=== PATIENT | female | born 1940 | race Caucasian/White ===

== ENCOUNTER 2021-07-22 13:56 | Emergency (ER) | payer MEDICARE, OTHER, SELFPAY ==
[2021-07-22 13:57] VITALS: BP 126/69; PULSE 78; RESP 20; TEMP 36.7; O2SAT 88; BMI 25.4
[2021-07-22 14:12] VITALS: PULSE 80; RESP 20; O2SAT 92
[2021-07-22 14:16] VITALS: O2SAT 92
--- NOTE | 2021-07-22 14:19 | EKG12_ITS ---
Test Reason : SOB Blood Pressure : / mmHG Vent. Rate : 073 BPM Atrial Rate : 073 BPM P-R Int : 130 ms QRS Dur : 076 ms QT Int : 406 ms P-R-T Axes : 067 013 047 degrees QTc Int : 447 ms Normal sinus rhythm Normal ECG Confirmed by ARIN ALEXANDER, ROMIE ([id number]), restaurant expeditor BENY COX ([id number]) on 07/23/2021 1:52:53 PM Referred By: MICHAEL Confirmed By:ROMIE HINKLE MD
[2021-07-22] MEDS: dexAMETHasone 10 MG/ML Vial IV (14:36)
[2021-07-22 14:41] LABS: Absolute Lymphocyte Count 0.47 X10^3/uL (0.83-4.51); Absolute Neutrophil Count 1.6 X10^3/uL (2.0-7.7); Hematocrit 37.6 % (37-47); Hemoglobin 11.9 g/dL (12.0-15.0); Lymphocyte # 0.47 X10^3/ul (0.83-4.51); Lymphocyte % 19.3 % (19-41); Mean Corp Hgb Conc 31.6 g/dL (32-36); Mean Corpuscular Hgb 25.5 pg (27.0-32.0); Mean Corpuscular Volume 80.5 fL (81-99); Mean Platelet Vol. 8.7 fl (6.2-12.0); Monocyte# 0.34 X10^3/uL; Monocyte% 13.9 % (0-10); NRBC Flagged by Analyzer 0 % (0-5); Neutrophil # 1.61 X10^3/uL (2.7-7.7); POSITIVE DIFFERENTIAL YES; Platelet Count 234 K/mm3 (150-450); RBC Distribution Width CV 16.5 % (11.6-14.6); RBC Distribution Width SD 48.2 fl (35.1-43.9); Red Blood Count 4.67 M/mm3 (4.2-5.4); White Blood Count 2.4 K/mm3 (4.4-11.0)
[2021-07-22 14:45] LABS: Differential Indicated SCAN CRITERIA MET
--- NOTE | 2021-07-22 14:45 | RAD_ITS ---
STUDY: X-RAY CHEST REASON FOR EXAM: Female, 81 years old. Cough TECHNIQUE: Single AP portable view of the chest. COMPARISON: None. FINDINGS: EKG electrodes are seen. Patchy infiltrates are seen in both lower lobes slightly more prominent on the left side. There is no demonstrated pleural abnormality. Normal size heart. Normal mediastinum and layla. Normal visualized pulmonary arteries. Normal visualized aortic arch and descending thoracic aorta. There are diffuse degenerative changes of the visualized thoracic spine. Normal visualized ribs, clavicles, and shoulders. Hiatal hernia. RAD/Chest 1 View (Portable) IMPRESSION: Patchy bibasilar pulmonary infiltrates slightly more prominent on the left side. Electronically Signed: Cliff Haile MD at 14:58 EDT , Service support ,
[2021-07-22 14:59] LABS: Anion Gap 9 (5-15); BUN 20 mg/dL (7-18); BUN/Creat Ratio 16.4 RATIO (10-20); Calcium,Total 8.9 mg/dL (8.5-10.1); Chloride 97 mmol/L (98-107); Creatinine, Serum 1.22 mg/dL (0.55-1.02); EST Glomerular Filtration Rate 45 mL/min (>60); Est Glom Filt Rate - Afr Amer 54 mL/min (>60); Estimated Creatinine Clearance 25.54 ml/min; Glucose 124 mg/dL (74-106); Magnesium 2.4 mg/dL (1.6-2.6); Potassium 4.2 mmol/L (3.5-5.1); Sodium Level 133 mmol/L (136-145); Troponin-I HS 6 pg/mL (3.0-54.0)
[2021-07-22 15:12] LABS: Differential Comment SCANNED
--- NOTE | 2021-07-22 15:29 | EX.ED.DYSGE1 ---
HPI History of Present Illness Chief Complaint: Shortness of Breath Narrative Narrative: Patient is 81-year-old female who lives in [facility] approximately 3 hours away. She came down to this area where her daughters live on her birthday which was [birth year] and they went to a public attraction. The next day she began with nasal congestion and cough and tested positive for Covid. Patient states that she has been doing overall well at home but family has been checking her pulse ox and they noticed it was dropping down into the high 80s and with this sent her in for evaluation. Patient denies any history of lung disorder or smoking history. She states she overall feels okay but with family's concern for her oxygen status she presents for evaluation [facility] Medical History Hypothyroidism Psoriasis Home Medications albuterol sulfate [Ventolin HFA] 1 - 2 puff INHALATION Q4H PRN PRN #1 device 07/22/21 [Rx Last Taken Unknown] dexamethasone [Decadron] 6 mg PO DAILY #10 tab 07/22/21 [Rx Last Taken Unknown] Allergy/AdvReac Type Severity Reaction Status Date / Time propoxyphene [From Darvon] AdvReac Nausea Verified 07/22/21 14:01 Social History Smoking Status: Never smoker ROS ROS ED Constitutional Constitutional ED: Denies chills or fever(s) ENT ENT ED: Denies sore throat Cardiovascular Cardiovascular: Denies chest pain Respiratory/Chest Respiratory/Chest: Reports cough and dyspnea Gastrointestinal Gastrointestinal: Denies abdominal pain, diarrhea, nausea or vomiting Genitourinary Genitourinary ED: Denies dysuria Musculoskeletal Musculoskeletal: Denies myalgias Integumentary Denies rash Neurologic Neurologic: Denies headache(s) Hematologic/Lymphatic Hematologic/Lymphatic: Denies easy bleeding or easy bruising EXAM Physical Exam Const Vital Signs: 07/22/21 13:57 07/22/21 14:12 07/22/21 14:16 Temperature 98.1 F Temperature Source Temporal Pulse Rate 78 80 Respiratory Rate 20 H 20 H Respiratory Effort Normal Non-Labored Respiratory Depth Normal Respiratory Pattern Normal Blood Pressure 126/69 H Blood Pressure Mean 88 Pulse Ox 88 92 Oxygen Delivery Method Room Air Room Air Room Air 07/22/21 16:02 Temperature Temperature Source Pulse Rate 73 Respiratory Rate 19 H Respiratory Effort Respiratory Depth Respiratory Pattern Blood Pressure 137/60 H Blood Pressure Mean 85 Pulse Ox 90 Oxygen Delivery Method Room Air Positive well nourished and well developed General Appearance ED: well developed HEENT Reports moist mucous membranes HEENT Narrative: No tongue or lip swelling no oral lesions no airway edema or compromise Eyes PERRL and EOMs intact bilaterally Neck supple Neck Narrative: Positive anterior cervical lymphadenopathy noted Resp normal respiratory effort Resp Narrative: No nasal flaring retractions tachypnea or accessory muscle use. Patient's breath sounds are slight diminished throughout with faint expiratory wheeze and rhonchi in the bilateral bases Cardio regular rate and regular rhythm GI normal to inspection, nondistended, normoactive bowel sounds, non-tender and non-distended Auscultation: normoactive bowel sounds Palpation: soft Extremity normal to inspection Extremity Narrative: No asymmetric edema no pitting edema negative Homans' sign bilaterally Neuro oriented x3 and CN's II-XII intact bilaterally Sensorium / Orientation: alert Psych mental status grossly normal Skin no rashes or lesions noted MDM MDM MDM Narrative Medical decision making narrative: Patient presented to the ER in no acute respiratory distress and was satting 90 to 92% on room air. She is approximately 9 days into her Covid diagnosis and there is concern for developing infection/pneumonia from this because of her reported low pulse ox at home. Basic blood work was obtained which does show leukopenia consistent with the Covid but otherwise no clinically significant findings. Chest x-ray did reveal infiltrates consistent with Covid pneumonia. The patient was ambulated and her pulse ox went down to 83% on room air. Therefore at this time she will qualify for supplemental oxygen. However as she does not have signs of septicemia from the Covid or signs of heart damage I do not feel there is need for placement. Patient will be prescribed oxygen as well as Decadron and albuterol inhaler for home. I do not feel there is need for antibiotics as the pneumonia is viral in nature. We discussed monoclonal antibody treatment but patient is now on supplemental oxygen which disqualifies her from this. Lab Data Attestation: I reviewed the patient's lab results. Labs: Laboratory Results - last 24 hr 07/22/21 07/22/21 07/22/21 14:28 14:28 14:28 WBC 2.4 L RBC 4.67 Hgb 11.9 L Hct 37.6 MCV 80.5 L MCH 25.5 L MCHC 31.6 L RDW Std Deviation 48.2 H RDW Coeff of Cecille 16.5 H Plt Count 234 MPV 8.7 Immature Gran % (Auto) 0.800 Neut % (Auto) 66.0 Lymph % (Auto) 19.3 Wells % (Auto) 13.9 H Eos % (Auto) 0.0 Baso % (Auto) 0.0 Absolute Neuts (auto) 1.6 L Absolute Lymphs (auto) 0.47 L Nucleated RBC % 0 Differential Comment SCANNED Diff Path Review May foll Sodium 133 L Potassium 4.2 Chloride 97 L Carbon Dioxide 27.0 Anion Gap 9 BUN 20 H Creatinine 1.22 H Estim Creat Clear Calc 25.54 Est GFR (MDRD) Af Amer 54 L Est GFR (MDRD) Non-Af 45 L BUN/Creatinine Ratio 16.4 Glucose 124 H Calcium 8.9 Magnesium 2.4 Troponin I High Sens 6 B-Natriuretic Peptide 11.0 Radiography Diagnostic Testing: Clinical Impression(s) from Imaging Studies Chest X-Ray 07/22/21 14:45 IMPRESSION: Patchy bibasilar pulmonary infiltrates slightly more prominent on the left side. Electronically Signed: Cliff Haile MD at 14:58 EDT , Service support , Discharge Plan Triage Chief Complaint: Shortness of Breath ED Provider: Ever Gama Dx/Rx/DC Orders Clinical Impression: Pneumonia due to 2019 novel coronavirus Instructions: Coronavirus Disease 2019 (COVID-19): Caring for Yourself or Others Prescriptions: New dexamethasone [Decadron] 6 mg tablet 6 mg PO DAILY Qty: 10 RF: 0 albuterol sulfate [Ventolin HFA] 90 mcg/actuation HFA aerosol inhaler 1 - 2 puff inhalation Q4H PRN PRN (Reason: Wheezing) Qty: 1 RF: 0 Primary Care Provider: Care Physician,No Primary Referrals: Reyes Baker DO [STAFF PHYSICIAN] - 3-5 Days if not improving Care Physician,No Primary [Primary Care Provider] - Disposition Disposition: Home, Self Care
[2021-07-22 15:55] VITALS: O2SAT 88
[2021-07-22 16:02] VITALS: BP 137/60; PULSE 73; RESP 19; O2SAT 90
[2021-07-22 16:44] VITALS: BP 137/60; PULSE 71; RESP 18; O2SAT 97
--- NOTE | 2021-07-22 16:57 | CM.ED ---
MICHAEL Note Referral Source: cistern room operator Reason: Home Oxygen MICHAEL was advised by RN that patient needs home oxygen. MICHAEL called Tricia at [facility]. She advised to tell the patient to call [facility] when she gets home. BUSHING AND BROACH OPERATOR confirmed patient does not have a bipap or cpap. MICHAEL faxed referral packet to [facility]. MICHAEL sent email to [facility] [facility] for follow up. Plan: Home with home oxygen
[2021-07-23 13:20] LABS: Pathologist Review Reviewed
--- NOTE | 2021-07-23 15:08 | CASEMGMT ---
EMILY JESUS ED Home O2 follow-up: This EMILY JESUS contacted pt on her daughter's phone ([phone]). Pt's daughter Arlette states pt has been doing very well since discharge and denies any concerns. States pt received her prescriptions, has been wearing the O2 at 2l/min, and reports pt's PO to have been 94-96%. Pt's daughter reports that her and herself also have COVID-19 and have received monoclonal antibodies. Pt's daughter Arlette denied further questions or concerns regarding Eliz's health status. David Kimball RN CM
== END 2021-07-22 17:23 | disposition home or self-care (01) ==
PROVIDERS: Emergency Provider Emergency Medicine
DX: U07.1 COVID-19 (principal); J12.82 Pneumonia due to coronavirus disease 2019
CPT/HCPCS: 71045; 80048; 83735; 83880; 84484; 85025; 93005; 96374; 99282; J7040; A4216

== ENCOUNTER 2021-07-25 22:47 | Inpatient (IN) | payer MEDICARE, OTHER, SELFPAY ==
[2021-07-25 22:48] VITALS: BP 146/78; PULSE 75; RESP 22; TEMP 36.3; O2SAT 97; BMI 25.4
[2021-07-25 22:50] VITALS: BP 146/78; PULSE 75; RESP 22; TEMP 36.3; O2SAT 97
--- NOTE | 2021-07-25 23:49 | EDS_ITS ---
HPI History of Present Illness Chief Complaint: Shortness of Breath Informant: patient Onset/Context/Timing Onset: Days (11) Context: gradual Timing: Continuous Quality: Positive for Dyspnea on exertion Worsened by: Exertion Relieved by: Oxygen and Albuterol Associated Symptoms cough and clear sputum; Negative for rhinorrhea, ear pain, fever, sore throat or chills Chest Pain: Positive for None Narrative Narrative: Patient presents with shortness of breath that has been getting worse over the past 11 days. Patient was diagnosed with COVID-19 approximately 10 days ago. Patient states her breathing is worse with any exertion. Patient was seen here 3 days ago and was diagnosed with COVID-19 pneumonia. Patient was given prescriptions for Decadron and albuterol. Patient was placed on home oxygen. Patient states she has been having to increase her home oxygen. Patient admits to a cough with some clear sputum. Patient denies any fevers or chills. [facility] Medical History (Updated 07/26/21 @ 02:[address] London Diaz DO) Hypothyroidism Psoriasis Home Medications albuterol sulfate [Ventolin HFA] 1 - 2 puff INHALATION Q4H PRN PRN #1 device 07/22/21 [Rx Last Taken Unknown] azithromycin [Zithromax Z-Marito] See Rx Instructions .ROUTE .COMPLEX #6 tab 07/22/21 [Rx Last Taken Unknown] dexamethasone [Decadron] 6 mg PO DAILY #10 tab 07/22/21 [Rx Last Taken Unknown] paroxetine HCl 40 mg PO DAILY 07/26/21 [History Last Taken Unknown] Allergy/AdvReac Type Severity Reaction Status Date / Time propoxyphene [From Darvon] AdvReac Nausea Verified 07/22/21 14:01 Surgical History (Updated 07/25/21 @ 23:[address] London Diaz DO) Hx of exploratory laparotomy Social History Smoking Status: Never smoker ROS ROS ED Constitutional Constitutional ED: Denies chills or fever(s) Eyes Eyes: Denies blurry vision or change in vision ENT ENT ED: Denies rhinorrhea or sore throat Cardiovascular Cardiovascular: Denies chest pain or palpitations Respiratory/Chest Respiratory/Chest: Reports cough and dyspnea Gastrointestinal Gastrointestinal: Reports nausea; Denies vomiting Genitourinary Genitourinary ED: Denies dysuria or hematuria Musculoskeletal Musculoskeletal: Denies back pain or neck pain Integumentary Denies abscess or rash Neurologic Neurologic: Denies headache(s) or weakness Allergic/Immunologic Allergic/Immunologic ED: Denies mouth swelling or urticaria EXAM Physical Exam Const Vital Signs: 07/25/21 22:48 07/25/21 22:50 07/26/21 00:00 Temperature 97.3 F L 97.3 F L 97.3 F L Temperature Source Temporal Temporal Temporal Pulse Rate 75 75 68 Respiratory Rate 22 H 22 H 17 Respiratory Effort Normal Respiratory Depth Normal Respiratory Pattern Normal Blood Pressure 146/78 H 146/78 H 146/78 H Blood Pressure Mean 100 100 100 Pulse Ox 97 97 95 Oxygen Delivery Method Nasal Cannula Nasal Cannula Nasal Cannula Oxygen Flow Rate (L/min) 6 4 Positive well nourished and well developed General Appearance ED: well developed HEENT Reports moist mucous membranes Neck supple and no JVD Resp normal respiratory effort Auscultation: rhonchi throughout Cardio regular rate, regular rhythm and no murmurs GI normal to inspection, nondistended, normoactive bowel sounds and non-tender Palpation: soft Extremity normal to inspection General Extremety ED: Negative for edema or tenderness General Extremity: Negative for edema Neuro oriented x3, CN's II-XII intact bilaterally and no sensory deficits noted Sensorium / Orientation: alert Motor Exam: strength 5/5 throughout Psych mental status grossly normal Skin no rashes or lesions noted MDM MDM MDM Narrative Medical decision making narrative: Portable chest x-ray was obtained. There is 1 view. On my interpretation, there are bilateral infiltrates consistent with COVID-19 pneumonia. This was also interpreted by the radiologist and he agrees. CBC shows a normal white blood cell count of 4.9. Hemoglobin was 11.3 hematocrit was 36.4. Platelets were normal. Comprehensive metabolic profile was within normal limits. Anion gap was normal. Lactate was elevated at 4.2. Patient was offered Tylenol but declined. Patient was given a dose of Decadron here. Case was discussed with the hospitalist. He will admit the patient. Patient understood and was agreeable with the plan. All questions were answered. Lab Data Attestation: I reviewed the patient's lab results. Labs: Laboratory Results - last 24 hr 07/25/21 07/25/21 07/25/21 23:05 23:05 23:05 WBC 4.9 RBC 4.49 Hgb 11.3 L Hct 36.4 L MCV 81.1 MCH 25.2 L MCHC 31.0 L RDW Std Deviation 48.8 H RDW Coeff of Cecille 16.4 H Plt Count 394 MPV 9.0 Immature Gran % (Auto) 1.800 H Neut % (Auto) 81.0 H Lymph % (Auto) 7.6 L [place] % (Auto) 9.4 Eos % (Auto) 0.0 Baso % (Auto) 0.2 Absolute Neuts (auto) 4.0 Absolute Lymphs (auto) 0.37 L Nucleated RBC % 0 Sodium 133 L Potassium 4.5 Chloride 97 L Carbon Dioxide 26.0 Anion Gap 10 BUN 19 H Creatinine 0.76 Estim Creat Clear Calc 31.15 Est GFR (MDRD) Af Amer 94 Est GFR (MDRD) Non-Af 78 BUN/Creatinine Ratio 25.0 H Glucose 109 H Lactic Acid 4.2 H* Calcium 8.9 Total Bilirubin 0.50 AST 37 ALT 23 Alkaline Phosphatase 103 Total Protein 8.3 H Albumin 2.7 L Globulin 5.6 H Albumin/Globulin Ratio 0.5 L Radiography Chest X-Ray - ED: 1 View, Read by ED Physician, Read by Radiologist, Right Infiltrate and Left Infiltrate Diagnostic Testing: Clinical Impression(s) from Imaging Studies Chest X-Ray 07/26/21 00:00 IMPRESSION: Increased bilateral patchy airspace opacities concerning for pneumonia, compatible with atypical viral pneumonia in the appropriate setting. at 0034 Reported and signed by: Uvaldo Cotto MD Electronically Signed: Uvaldo Cotto MD at 0:33 EDT Tel , Service support , Treatment and Re-Evaluation Vital Sign Attestation:: Vital signs were reviewed prior to admission. They are stable. Discharge Plan Dx/Rx/DC Orders Clinical Impression: Pneumonia due to 2019 novel coronavirus, Hypoxia Disposition Disposition: [facility]
[2021-07-26] VITALS (25 sets, daily range): BP systolic 98–152; BP diastolic 48–84; PULSE 66–94; RESP 15–23; TEMP 36.2–37.4; O2SAT 83–98; BMI 28.0
--- NOTE | 2021-07-26 | RAD_ITS ---
HISTORY: cough EXAMINATION/TECHNIQUE: XR Chest 1 View: COMPARISON: July 22, 2021 FINDINGS: LINES/DEVICES: None. LUNGS: Increased bilateral patchy predominantly peripheral mid lower lung airspace opacities. Unremarkable interstitium. No effusion. No pneumothorax. MEDIASTINUM: No cardiomegaly. MUSCULOSKELETAL: No acute osseous finding. RAD/Chest 1 View (Portable) IMPRESSION: Increased bilateral patchy airspace opacities concerning for pneumonia, compatible with atypical viral pneumonia in the appropriate setting. at 0034 Reported and signed by: Uvaldo Cotto MD Electronically Signed: Uvaldo Cotto MD at 0:33 EDT Tel , Service support ,
[2021-07-26 00:12] LABS: Absolute Lymphocyte Count 0.37 X10^3/uL (0.83-4.51); Basophil# 0.01 X10^3/uL; Basophil% 0.2 % (0-1); Hematocrit 36.4 % (37-47); Hemoglobin 11.3 g/dL (12.0-15.0); Lymphocyte # 0.37 X10^3/ul (0.83-4.51); Lymphocyte % 7.6 % (19-41); Mean Corpuscular Hgb 25.2 pg (27.0-32.0); Mean Corpuscular Volume 81.1 fL (81-99); Monocyte# 0.46 X10^3/uL; Monocyte% 9.4 % (0-10); NRBC Flagged by Analyzer 0 % (0-5); Neutrophil # 3.95 X10^3/uL (2.7-7.7); POSITIVE DIFFERENTIAL YES; Platelet Count 394 K/mm3 (150-450); RBC Distribution Width CV 16.4 % (11.6-14.6); RBC Distribution Width SD 48.8 fl (35.1-43.9); Red Blood Count 4.49 M/mm3 (4.2-5.4); White Blood Count 4.9 K/mm3 (4.4-11.0)
[2021-07-26 00:19] LABS: ALB/GLOB Ratio 0.5 RATIO (0.9-2.4); AST(SGOT) 37 U/L (15-37); Alanine Aminotransfer ALT/SGPT 23 U/L (13-56); Albumin, Serum 2.7 g/dL (3.2-5.0); Alkaline Phosphatase 103 U/L (45-117); Anion Gap 10 (5-15); BUN 19 mg/dL (7-18); Calcium,Total 8.9 mg/dL (8.5-10.1); Chloride 97 mmol/L (98-107); Creatinine, Serum 0.76 mg/dL (0.55-1.02); EST Glomerular Filtration Rate 78 mL/min (>60); Est Glom Filt Rate - Afr Amer 94 mL/min (>60); Estimated Creatinine Clearance 31.15 ml/min; Globulin 5.6 g/dL (2.2-4.2); Glucose 109 mg/dL (74-106); Potassium 4.5 mmol/L (3.5-5.1); Protein, Total 8.3 g/dL (6.4-8.2); Sodium Level 133 mmol/L (136-145)
[2021-07-26] MEDS: dexAMETHasone 10 MG/ML Vial 6 MG IV (00:24)
[2021-07-26 00:25] LABS: Differential Indicated SCAN CRITERIA MET
[2021-07-26 00:37] LABS: Lactic Acid 4.2 mmol/L (0.4-1.9)
--- NOTE | 2021-07-26 02:19 | PCM.HP.STD ---
HPI - General General Date of Admission: 07/26/21 Date of Service: 07/26/21 Chief Complaint: Covid-like symptoms HPI Narrative ELFEGO AUSTIN, is a 81 F with a significant history of hypothyroidism and psoriasis who presents to emergency department with 11-day history of progressively worsening Covid-like symptoms. Patient tested positive for Covid 10 days ago. On 07/22/2021 she was at a hospital and was prescribed albuterol; Decadron and Z-Marito. She report that she continued to have dyspnea on exertion and hypoxia requiring her home oxygen supplementation to be increased. Further, patient reports a dry cough occasionally productive of clear sputum. She denies dysgeusia or anosmia. She reports loose bowel movements when she coughs. [facility] Medical History Hypothyroidism Psoriasis Home Medications albuterol sulfate [Ventolin HFA] 1 - 2 puff INHALATION Q4H PRN PRN #1 device 07/22/21 [Rx Last Taken Unknown] azithromycin [Zithromax Z-Marito] See Rx Instructions .ROUTE .COMPLEX #6 tab 07/22/21 [Rx Last Taken Unknown] dexamethasone [Decadron] 6 mg PO DAILY #10 tab 07/22/21 [Rx Last Taken Unknown] paroxetine HCl 40 mg PO DAILY 07/26/21 [History Last Taken Unknown] Allergy/AdvReac Type Severity Reaction Status Date / Time propoxyphene [From Darvon] AdvReac Nausea Verified 07/22/21 14:01 Family History (Updated 07/26/21 @ 03:[address] Enrico Persaud MD) Other Cancer Surgical History Hx of exploratory laparotomy Social History Smoking Status: Never smoker ROS ROS Narrative Constitutional: Denies fever, chills, and change in weight Eyes: Denies blurry vision, change in eye color, change in vision, discharge from eye(s), double vision, erythema, eye pain, loss of vision or other HEENT: Denies abnormal hearing, dysphagia, ear pain, epistaxis, headache(s), hearing loss, nasal congestion, nasal discharge, post nasal drip, sinus pressure, sore throat or other Cardiovascular: Denies chest pain or palpitations. Respiratory/Chest: Reports a productive cough occasionally productive for clear sputum. Reports dyspnea on exertion. Gastrointestinal: Denies abdominal pain, coffee ground emesis, constipation, diarrhea, dyspepsia, hematemesis, hematochezia, loose stools, melena, nausea, vomiting or other Genitourinary: Denies burning urination, difficulty urinating, dysuria, hematuria, nocturia, urinary frequency, urinary hesitancy, urinary incontinence, urinary urgency or other Musculoskeletal: Denies arthralgias, back pain, joint pain, joint stiffness, joint swelling, myalgias, neck pain or other Neurologic: Denies abnormal gait, abnormal speech, confusion, disequilibrium, dizziness, focal weakness, headache(s), numbness, paresthesias, seizure-like activity, seizures, syncope, tingling, tremor(s) or other Psychiatric: Denies anxiety, depression, homicidal ideation, suicidal ideation or other Endocrinology: Denies change in body appearance, cold intolerance, excessive sweating, heat intolerance, polydipsia, polyuria or other Hematologic/Lymphatic: Denies anemia, easy bleeding, easy bruising, lymphadenopathy or other Integumentary: Denies rashes Allergic/Immunologic: Denies rhinitis, hives, eczema, asthma or other Vital Signs Vital Signs Vital Signs: 07/25/21 22:48 07/25/21 22:50 07/26/21 00:00 Temperature 97.3 F L 97.3 F L 97.3 F L Temperature Source Temporal Temporal Temporal Pulse Rate 75 75 68 Respiratory Rate 22 H 22 H 17 Respiratory Effort Normal Respiratory Depth Normal Respiratory Pattern Normal Blood Pressure 146/78 H 146/78 H 146/78 H Blood Pressure Mean 100 100 100 Pulse Ox 97 97 95 Oxygen Delivery Method Nasal Cannula Nasal Cannula Nasal Cannula Oxygen Flow Rate (L/min) 6 4 Weight Weight: 58.967 kg Body Mass Index (BMI) 25.4 Physical Exam Narrative Physical exam: General: Well-nourished, well-developed. Head: Normocephalic, atraumatic, no tenderness Eyes: PERRLA, EOMI ENT, no trauma, moist mucous membranes, no rhinorrhea Neck: Nontender, full range of motion, no spinal tenderness, deformities, step-off CVS: Regular rate and rhythm. S1-S2 present. No murmur, gallop or rub. Respiratory : Using accessory muscles of respiration; tachypnea; no rales; chest wall nontender. Abdomen: Soft, nontender, nondistended, normal bowel sounds, no masses : Deferred Back: Nontender, no CVA tenderness, no midline spinal tenderness, deformities, step-offs Extremities: Nontender full range of motion, no trauma Skin: Normal color, no trauma, abrasions Neuro: Alert, oriented, cranial nerves II through XII grossly intact. Psychiatry: Normal mood. Normal affect. Not depressed. Not anxious. Results Lab / Micro Data Result Diagrams: 07/25/21 23:05 07/25/21 23:05 Labs: Laboratory Results - last 24 hr 07/25/21 23:05: WBC 4.9, RBC 4.49, Hgb 11.3 L, Hct 36.4 L, MCV 81.1, MCH 25.2 L, MCHC 31.0 L, RDW Std Deviation 48.8 H, RDW Coeff of Cecille 16.4 H, Plt Count 394, MPV 9.0, Immature Gran % (Auto) 1.800 H, Neut % (Auto) 81.0 H, Lymph % (Auto) 7.6 L, [place] % (Auto) 9.4, Eos % (Auto) 0.0, Baso % (Auto) 0.2, Absolute Neuts (auto) 4.0, Absolute Lymphs (auto) 0.37 L, Nucleated RBC % 0 07/25/21 23:05: Sodium 133 L, Potassium 4.5, Chloride 97 L, Carbon Dioxide 26.0, Anion Gap 10, BUN 19 H, Creatinine 0.76, Estim Creat Clear Calc 31.15, Est GFR (MDRD) Af Amer 94, Est GFR (MDRD) Non-Af 78, BUN/Creatinine Ratio 25.0 H, Glucose 109 H, Calcium 8.9, Total Bilirubin 0.50, AST 37, ALT 23, Alkaline Phosphatase 103, Total Protein 8.3 H, Albumin 2.7 L, Globulin 5.6 H, Albumin/Globulin Ratio 0.5 L 07/25/21 23:05: Lactic Acid 4.2 H* Radiology Impression Chest X-Ray 07/26/21 00:00 IMPRESSION: Increased bilateral patchy airspace opacities concerning for pneumonia, compatible with atypical viral pneumonia in the appropriate setting. at 0034 Reported and signed by: Uvaldo Cotto MD Electronically Signed: Uvaldo Cotto MD at 0:33 EDT Tel , Service support , Assessment & Plan Assessment/Plan (1) Hypoxia: (2) Pneumonia due to 2019 novel coronavirus: PLAN: Acute hypoxemic respiratory failure secondary to SARS- COV 2 Tachypnea with use of accessory muscles of respiration. Patient required nasal cannula oxygen to maintain appropriate oxygen saturation. Patient increased her home oxygen to 5 L/min. Chest x-ray independently interpreted is consistent with Covid. I agree with radiologist interpretation. CBC is remarkable for bandemia of 1.8%. Positive coronavirus test outpatient at [facility]. Will stop Home Z-Marito. Will check procalcitonin. Decadron continue. Outside window for remdesivir. Tylenol for fever Mucinex ordered Trend CBC and BMP. Lactic acidosis with lactic acid of 4.2, likely secondary to hypoxia, trend. We'll put on therapeutic dose of Lovenox in the setting of persistent hypoxia. Unable to obtain CTA secondary to CKD stage III. Depression/anxiety Paroxetine continued. CKD stage IIIb Stable trend DVT prophylaxis: Subcutaneous Lovenox ordered. Charges/Coding Visit Charges Inpatient E&M: 46936 Init Hosp L3
[2021-07-26 03:32] LABS: Absolute Lymphocyte Count 0.39 X10^3/uL (0.83-4.51); Absolute Neutrophil Count 4.3 X10^3/uL (2.0-7.7); Basophil# 0.01 X10^3/uL; Basophil% 0.2 % (0-1); Hematocrit 34.9 % (37-47); Lymphocyte # 0.39 X10^3/ul (0.83-4.51); Lymphocyte % 7.6 % (19-41); Mean Corp Hgb Conc 31.5 g/dL (32-36); Mean Corpuscular Hgb 25.4 pg (27.0-32.0); Mean Corpuscular Volume 80.6 fL (81-99); Monocyte# 0.31 X10^3/uL; Monocyte% 6.1 % (0-10); NRBC Flagged by Analyzer 0 % (0-5); Neutrophil # 4.32 X10^3/uL (2.7-7.7); Neutrophil % 84.7 % (47-70); POSITIVE DIFFERENTIAL YES; POSITIVE MORPHOLOGY YES; Platelet Count 403 K/mm3 (150-450); RBC Distribution Width CV 16.1 % (11.6-14.6); RBC Distribution Width SD 47.4 fl (35.1-43.9); Red Blood Count 4.33 M/mm3 (4.2-5.4); White Blood Count 5.1 K/mm3 (4.4-11.0)
[2021-07-26 03:37] LABS: Differential Indicated SCAN CRITERIA MET
[2021-07-26 03:50] LABS: Anion Gap 10 (5-15); BUN 17 mg/dL (7-18); BUN/Creat Ratio 24.4 RATIO (10-20); Calcium,Total 9.3 mg/dL (8.5-10.1); Chloride 98 mmol/L (98-107); EST Glomerular Filtration Rate 86 mL/min (>60); Est Glom Filt Rate - Afr Amer 104 mL/min (>60); Estimated Creatinine Clearance 31.15 ml/min; Glucose 112 mg/dL (74-106); Potassium 4.5 mmol/L (3.5-5.1); Sodium Level 133 mmol/L (136-145)
[2021-07-26 04:00] LABS: Reflex Lactate? Y
[2021-07-26 04:01] LABS: Procalcitonin 0.04 ng/mL (0.00-0.09)
--- NOTE | 2021-07-26 04:49 | PCS.PANDOC ---
PANDEMIC DOCUMENTATION INITIATED: Date: 05/10/2021 Time: 190
[2021-07-26 05:12] LABS: Lactic Acid 2.9 mmol/L (0.4-1.9)
[2021-07-26] MEDS: Levothyroxine 75 MCG Tablet PO (06:59)
[2021-07-26] MEDS: Enoxaparin 80 MG/0.8 ML Syringe 70 MG SC (09:13)
[2021-07-26] MEDS: dexAMETHasone 2 MG TABLET 6 MG PO (09:17)
[2021-07-26] MEDS: guaiFENesin 600 MG Tablet PO ×2 (09:17→21:16)
[2021-07-26] MEDS: 0.9% Saline Lock 10 ML Syringe IV ×2 (09:17→14:27)
[2021-07-26] MEDS: Albuterol Sulfate 8 gm Inhaler (60 puffs) 2 PUFF INHALATION (12:25)
--- NOTE | 2021-07-26 13:18 | NURSING ---
Addendum entered by Feli See 07/26/21 15:01: Pt moved to ICU room 9 at 1415. Original Note: Spo2 83%, into room, pt observed laying prone in bed with NC dislodged. Repositioned NC, SpO2 up to 90-91%.
[2021-07-26] MEDS: Ipratropium/Albuterol Sulfate 3 ML AMPUL.NEB INHALATION ×2 (14:22→19:56)
[2021-07-26 14:41] LABS: Allen Test Positive; Base Excess 3 mmol/L (-2 to +2); Bicarbonate 26.6 mmol/L (22-26); Blood Gas Specimen Type ART; Comment 60L 80%; FI02 80; O2 Delivery Device HFNC; PO2 53 mmHG (75-100); SITE L Radial; SO2 89 % (95-99); Total Carbon Dioxide 28 mmol/L; pCO2 37.6 mmHg (35-45); pH 7.46 (7.35-7.45)
[2021-07-26 15:09] LABS: D-Dimer Quantitative (DVT/PE) 0.98 FEU/ug/m (0.27-0.49)
--- NOTE | 2021-07-26 15:57 | PN.HOSP_ITS ---
Subjective Subjective Patient seen and examined. At the time I saw patient early in the morning, patient was lying in the prone position and was on 7 L of oxygen. She felt her shortness of breath was not any worse and she had no active complaints. However later in the day, patient became more acutely short of breath and required up to 15 L of oxygen. She needed to be transition to airflow and even while was maxed out on airflow she was only saturating at 82 to 83%. Oxygen by nonrebreather mask was added on and she was subsequently transferred to the ICU. Objective Data Objective Data Vital Signs: Vital Signs Temp Pulse Resp BP Pulse Ox 97.7 F L 82 17 131/75 H 94 07/26/21 08:50 07/26/21 14:23 07/26/21 14:23 07/26/21 08:50 07/26/21 14:23 Oxygen Flow Rate (L/min) 60 Oxygen Delivery Method Airvo Weight: 143 lb 11.862 oz Body Mass Index (BMI) 28.0 Intake & Output: Intake and Output for Last 24 Hours 07/24/21 07/25/21 07/26/21 23:59 23:59 23:59 Intake Total 260 / 260 Balance 260 / 260 Lab / Micro Data Result Diagrams: 07/26/21 03:10 07/26/21 03:10 Labs: Laboratory Results - last 24 hr 07/25/21 23:05: WBC 4.9, RBC 4.49, Hgb 11.3 L, Hct 36.4 L, MCV 81.1, MCH 25.2 L, MCHC 31.0 L, RDW Std Deviation 48.8 H, RDW Coeff of Cecille 16.4 H, Plt Count 394, MPV 9.0, Immature Gran % (Auto) 1.800 H, Neut % (Auto) 81.0 H, Lymph % (Auto) 7.6 L, [place] % (Auto) 9.4, Eos % (Auto) 0.0, Baso % (Auto) 0.2, Absolute Neuts (auto) 4.0, Absolute Lymphs (auto) 0.37 L, Nucleated RBC % 0 07/25/21 23:05: Sodium 133 L, Potassium 4.5, Chloride 97 L, Carbon Dioxide 26.0, Anion Gap 10, BUN 19 H, Creatinine 0.76, Estim Creat Clear Calc 31.15, Est GFR (MDRD) Af Amer 94, Est GFR (MDRD) Non-Af 78, BUN/Creatinine Ratio 25.0 H, Glucose 109 H, Calcium 8.9, Total Bilirubin 0.50, AST 37, ALT 23, Alkaline Phosphatase 103, Total Protein 8.3 H, Albumin 2.7 L, Globulin 5.6 H, Albumin/G lobulin Ratio 0.5 L 07/25/21 23:05: Lactic Acid 4.2 H* 07/26/21 03:10: Procalcitonin 0.04 07/26/21 03:10: WBC 5.1, RBC 4.33, Hgb 11.0 L, Hct 34.9 L, MCV 80.6 L, MCH 25.4 L, MCHC 31.5 L, RDW Std Deviation 47.4 H, RDW Coeff of Cecille 16.1 H, Plt Count 403, MPV 9.0, Immature Gran % (Auto) 1.400 H, Neut % (Auto) 84.7 H, Lymph % (Auto) 7.6 L, [place] % (Auto) 6.1, Eos % (Auto) 0.0, Baso % (Auto) 0.2, Absolute Neuts (auto) 4.3, Absolute Lymphs (auto) 0.39 L, Nucleated RBC % 0 07/26/21 03:10: Sodium 133 L, Potassium 4.5, Chloride 98, Carbon Dioxide 25.0, Anion Gap 10, BUN 17, Creatinine 0.70, Estim Creat Clear Calc 31.15, Est GFR (MDRD) Af Amer 104, Est GFR (MDRD) Non-Af 86, BUN/Creatinine Ratio 24.4 H, Glucose 112 H, Calcium 9.3 07/26/21 04:32: Lactic Acid 2.9 H* 07/26/21 14:25: D-Dimer Quant (PE/DVT) 0.98 H* ABG Data ABG results: ABG 07/26/21 14:37 Specimen Type ART Sample Site L Radial pH 7.46 H Bicarbonate Actual 26.6 H Total CO2 28 Base Excess 3 H O2 Saturation 89 L O2 % 80 ABG pCO2 37.6 ABG pO2 53 L Juan [place] Test Positive O2 Delivery Device HFNC Clinical Comments 60L 80% Radiography Diagnostic Testing: Radiology Impression Chest X-Ray 07/26/21 00:00 IMPRESSION: Increased bilateral patchy airspace opacities concerning for pneumonia, compatible with atypical viral pneumonia in the appropriate setting. at 0034 Reported and signed by: Uvaldo Cotto MD Electronically Signed: Uvaldo Cotto MD at 0:33 EDT Tel , Service support , Physical Exam Const alert, oriented x3 and no apparent distress Exam Limitations: no limitations HEENT head/scalp atraumatic and moist oral mucous membranes Head and Scalp: normocephalic Eyes PERRL, EOMs intact bilaterally and conjunctivae normal Neck no lymphadenopathy and supple Resp Resp Narrative: diminished breath sounds bibasally, no wheezes, no crackles. On 7L of oxygen, proned. Transitioned later to Airvo + oxygen by nonrebreather mask Cardio regular rate, regular rhythm, S1 normal heart sound, S2 normal heart sound and no murmurs GI normal to inspection, nondistended, normoactive bowel sounds, soft to palpation, non-tender and non-distended Extremity normal to inspection, full ROM and no clubbing, cyanosis or edema Peripheral Pulses: Yes pulses 2+ throughout Skin no rashes or lesions noted Neuro oriented x3, CN's II-XII intact bilaterally and moves all extremities Sensorium / Orientation: awake and alert Psych affect normal Assessment & Plan Assessment/Plan (1) Hypoxia: (2) Pneumonia due to 2019 novel coronavirus: PLAN: #Acute hypoxic respiratory failure due to COVID 19 pneumonia * patient's respiratory status worsened, leading to her being maxed out on AirVo, and requiring oxygen by nasal canula in addition. * She tested positive for Covid 10 days prior to admission so she is out of the window for remdesivir * On Decadron. ID consulted to help determine if patient needs baricitinib * Pulmonology consulted in light of worsening respiratory status. Transfer patient to ICU. * Breathing treatments bronchodilators. Titrate oxygen to maintain saturation above 90%. * D-dimer 0.98. * ABG done showed pH of 7.46 with PO2 of 53 and PCO2 of 37.6. * #Hypothyroidism: On Synthroid DVT prophylaxis: Lovenox * Disposition: transferred to ICU. Charges/Coding Visit Charges Inpatient E&M: 03308 Subs Hosp L3
--- NOTE | 2021-07-26 16:08 | PCM.CONS.GEN ---
Assessment & Plan Assessment/Plan (1) Hypoxia: (2) Pneumonia due to 2019 novel coronavirus: PLAN: Sx started 07/13. Unvaccinated. Isolate for 20 days. Recommended vaccine. On dex. Reviewed EUA and risks/benefits, we agree to start baricitinib. Will follow, thank you HPI Consult Data Date of Consult: 07/26/21 HPI Narrative HPI Narrative: ELFEGO AUSTIN, is a 81 F who presented 07/25 with sx since 07/13. C/o cough, dyspnea. Unvaccinated for covid. Found to have hypoxia, went to ED 07/22, given dex. Came back with worsened, dyspnea, now admitted, moved to icu today with worsened O2. Full ROS performed and neg except as noted above. [facility] Medical History Hypothyroidism Psoriasis Home Medications albuterol sulfate [Ventolin HFA] 1 - 2 puff INHALATION Q4H PRN PRN #1 device 07/22/21 [Rx Last Taken Unknown] azithromycin [Zithromax Z-Marito] See Rx Instructions .ROUTE .COMPLEX #6 tab 07/22/21 [Rx Last Taken Unknown] dexamethasone [Decadron] 6 mg PO DAILY #10 tab 07/22/21 [Rx Last Taken Unknown] buspirone 5 mg 07/26/21 [History Last Taken Unknown] levothyroxine 75 mcg PO DAILY 07/26/21 [History Last Taken Unknown] pantoprazole 40 mg PO PRN PRN 07/26/21 [History Last Taken Unknown] paroxetine HCl 40 mg PO DAILY 07/26/21 [History Last Taken Unknown] Allergy/AdvReac Type Severity Reaction Status Date / Time propoxyphene [From Darvon] AdvReac Nausea Verified 07/22/21 14:01 Family History (Updated 07/26/21 @ 03:[address] Enrico Persaud MD) Other Cancer Surgical History Hx of exploratory laparotomy Social History Smoking Status: Never smoker Physical Exam Const alert General Appearance: cooperative Exam Limitations: no limitations HEENT normocephalic and head/scalp atraumatic Eyes PERRL and EOMs intact bilaterally Neck supple and No nodes Resp Auscultation: diminished lung sounds Cardio regular rate and regular rhythm GI normal to inspection, nondistended, normoactive bowel sounds Extremity no clubbing, cyanosis or edema Skin no rashes or lesions noted Neuro CN's II-XII intact bilaterally Lab / Micro Data Result Diagrams: 07/26/21 03:10 07/26/21 03:10 Labs: Laboratory Results - last 24 hr 07/25/21 23:05: WBC 4.9, RBC 4.49, Hgb 11.3 L, Hct 36.4 L, MCV 81.1, MCH 25.2 L, MCHC 31.0 L, RDW Std Deviation 48.8 H, RDW Coeff of Cecille 16.4 H, Plt Count 394, MPV 9.0, Immature Gran % (Auto) 1.800 H, Neut % (Auto) 81.0 H, Lymph % (Auto) 7.6 L, [place] % (Auto) 9.4, Eos % (Auto) 0.0, Baso % (Auto) 0.2, Absolute Neuts (auto) 4.0, Absolute Lymphs (auto) 0.37 L, Nucleated RBC % 0 07/25/21 23:05: Sodium 133 L, Potassium 4.5, Chloride 97 L, Carbon Dioxide 26.0, Anion Gap 10, BUN 19 H, Creatinine 0.76, Estim Creat Clear Calc 31.15, Est GFR (MDRD) Af Amer 94, Est GFR (MDRD) Non-Af 78, BUN/Creatinine Ratio 25.0 H, Glucose 109 H, Calcium 8.9, Total Bilirubin 0.50, AST 37, ALT 23, Alkaline Phosphatase 103, Total Protein 8.3 H, Albumin 2.7 L, Globulin 5.6 H, Albumin/Globulin Ratio 0.5 L 07/25/21 23:05: Lactic Acid 4.2 H* 07/26/21 03:10: Procalcitonin 0.04 07/26/21 03:10: WBC 5.1, RBC 4.33, Hgb 11.0 L, Hct 34.9 L, MCV 80.6 L, MCH 25.4 L, MCHC 31.5 L, RDW Std Deviation 47.4 H, RDW Coeff of Cecille 16.1 H, Plt Count 403, MPV 9.0, Immature Gran % (Auto) 1.400 H, Neut % (Auto) 84.7 H, Lymph % (Auto) 7.6 L, [place] % (Auto) 6.1, Eos % (Auto) 0.0, Baso % (Auto) 0.2, Absolute Neuts (auto) 4.3, Absolute Lymphs (auto) 0.39 L, Nucleated RBC % 0 07/26/21 03:10: Sodium 133 L, Potassium 4.5, Chloride 98, Carbon Dioxide 25.0, Anion Gap 10, BUN 17, Creatinine 0.70, Estim Creat Clear Calc 31.15, Est GFR (MDRD) Af Amer 104, Est GFR (MDRD) Non-Af 86, BUN/Creatinine Ratio 24.4 H, Glucose 112 H, Calcium 9.3 07/26/21 04:32: Lactic Acid 2.9 H* 07/26/21 14:25: D-Dimer Quant (PE/DVT) 0.98 H* ABG Data ABG results: ABG 07/26/21 14:37 Specimen Type ART Sample Site L Radial pH 7.46 H Bicarbonate Actual 26.6 H Total CO2 28 Base Excess 3 H O2 Saturation 89 L O2 % 80 ABG pCO2 37.6 ABG pO2 53 L Juan [place] Test Positive O2 Delivery Device HFNC Clinical Comments 60L 80% Radiology Impression Chest X-Ray 07/26/21 00:00 IMPRESSION: Increased bilateral patchy airspace opacities concerning for pneumonia, compatible with atypical viral pneumonia in the appropriate setting. at 0034 Reported and signed by: Uvaldo Cotto MD Electronically Signed: Uvaldo Cotto MD at 0:33 EDT Tel , Service support ,
[2021-07-26] MEDS: Paroxetine 20 MG Tablet 40 MG PO (21:17)
[2021-07-27] VITALS (27 sets, daily range): BP systolic 107–145; BP diastolic 57–77; PULSE 60–74; RESP 14–25; TEMP 36.3–37.2; O2SAT 90–98
[2021-07-27 04:29] LABS: Hematocrit 33.3 % (37-47); Hemoglobin 10.5 g/dL (12.0-15.0); Mean Corp Hgb Conc 31.5 g/dL (32-36); Mean Corpuscular Hgb 25.3 pg (27.0-32.0); Mean Corpuscular Volume 80.2 fL (81-99); Platelet Count 448 K/mm3 (150-450); RBC Distribution Width CV 16.2 % (11.6-14.6); RBC Distribution Width SD 47.5 fl (35.1-43.9); Red Blood Count 4.15 M/mm3 (4.2-5.4); White Blood Count 4.5 K/mm3 (4.4-11.0)
[2021-07-27 04:46] LABS: ALB/GLOB Ratio 0.4 RATIO (0.9-2.4); AST(SGOT) 27 U/L (15-37); Alanine Aminotransfer ALT/SGPT 20 U/L (13-56); Albumin, Serum 2.4 g/dL (3.2-5.0); Alkaline Phosphatase 86 U/L (45-117); Anion Gap 8 (5-15); BUN 21 mg/dL (7-18); BUN/Creat Ratio 26.8 RATIO (10-20); Calcium,Total 8.9 mg/dL (8.5-10.1); Chloride 97 mmol/L (98-107); Creatinine, Serum 0.78 mg/dL (0.55-1.02); EST Glomerular Filtration Rate 75 mL/min (>60); Est Glom Filt Rate - Afr Amer 90 mL/min (>60); Estimated Creatinine Clearance 31.15 ml/min; Globulin 5.4 g/dL (2.2-4.2); Glucose 112 mg/dL (74-106); Potassium 4.6 mmol/L (3.5-5.1); Protein, Total 7.8 g/dL (6.4-8.2); Sodium Level 134 mmol/L (136-145)
[2021-07-27] MEDS: Levothyroxine 75 MCG Tablet PO (05:38)
[2021-07-27] MEDS: Ipratropium/Albuterol Sulfate 3 ML AMPUL.NEB INHALATION ×4 (07:05→19:27)
--- NOTE | 2021-07-27 07:11 | CPS ---
decreased FIo2 to 65%, changed water bag
[2021-07-27] MEDS: guaiFENesin 600 MG Tablet PO ×2 (08:33→20:25)
[2021-07-27] MEDS: dexAMETHasone 2 MG TABLET 6 MG PO (08:33)
[2021-07-27] MEDS: Enoxaparin 80 MG/0.8 ML Syringe 70 MG SC (08:33)
--- NOTE | 2021-07-27 11:12 | PN.HOSP_ITS ---
Subjective Subjective Patient seen and examined. She was emergently transferred to ICU yesterday due to worsening respiratory status. She is now feeling much better and is on AirVo. She has no acute complaints and review of systems is otherwise negative. Objective Data Objective Data Vital Signs: Vital Signs Temp Pulse Resp BP Pulse Ox 98 F 65 16 126/62 H 91 07/27/21 08:00 07/27/21 11:00 07/27/21 11:00 07/27/21 11:00 07/27/21 11:00 Oxygen Flow Rate (L/min) 60 Oxygen Delivery Method Airvo Weight: 143 lb 11.862 oz Body Mass Index (BMI) 28.0 Intake & Output: Intake and Output for Last 24 Hours 07/25/21 07/26/21 07/27/21 23:59 23:59 23:59 Intake Total 380 / 380 240 / 240 Output Total 100 / 100 Balance 280 / 280 240 / 240 Lab / Micro Data Result Diagrams: 07/27/21 04:30 07/27/21 04:30 Labs: Laboratory Results - last 24 hr 07/26/21 14:25: D-Dimer Quant (PE/DVT) 0.98 H* 07/27/21 04:30: WBC 4.5, RBC 4.15 L, Hgb 10.5 L, Hct 33.3 L, MCV 80.2 L, MCH 25.3 L, MCHC 31.5 L, RDW Std Deviation 47.5 H, RDW Coeff of Cecille 16.2 H, Plt Count 448, MPV 9.0 07/27/21 04:30: Sodium 134 L, Potassium 4.6, Chloride 97 L, Carbon Dioxide 29.0, Anion Gap 8, BUN 21 H, Creatinine 0.78, Estim Creat Clear Calc 31.15, Est GFR (MDRD) Af Amer 90, Est GFR (MDRD) Non-Af 75, BUN/Creatinine Ratio 26.8 H, Glucose 112 H, Calcium 8.9, Total Bilirubin 0.40, AST 27, ALT 20, Alkaline Phosphatase 86, Total Protein 7.8, Albumin 2.4 L, Globulin 5.4 H, Albumin/Globulin Ratio 0.4 L ABG Data ABG results: ABG 07/26/21 14:37 Specimen Type ART Sample Site L Radial pH 7.46 H Bicarbonate Actual 26.6 H Total CO2 28 Base Excess 3 H O2 Saturation 89 L O2 % 80 ABG pCO2 37.6 ABG pO2 53 L [place] Test Positive O2 Delivery Device HFNC Clinical Comments 60L 80% Physical Exam Const alert, oriented x3 and no apparent distress Exam Limitations: no limitations HEENT head/scalp atraumatic and moist oral mucous membranes Head and Scalp: normocephalic Eyes PERRL, EOMs intact bilaterally and conjunctivae normal Neck no lymphadenopathy and supple Resp Resp Narrative: diminished breath sounds bibasally, no wheezes, no crackles. on AirVo with FiO2 of 55%. Cardio regular rate, regular rhythm, S1 normal heart sound, S2 normal heart sound and no murmurs GI normal to inspection, nondistended, normoactive bowel sounds, soft to palpation, non-tender and non-distended Extremity normal to inspection, full ROM and no clubbing, cyanosis or edema Peripheral Pulses: Yes pulses 2+ throughout Skin no rashes or lesions noted Neuro oriented x3, CN's II-XII intact bilaterally and moves all extremities Sensorium / Orientation: awake and alert Psych affect normal Assessment & Plan Assessment/Plan (1) Hypoxia: (2) Pneumonia due to 2019 novel coronavirus: PLAN: #Acute hypoxic respiratory failure due to COVID 19 pneumonia * on AirVo with FiO2 of 55%. * She tested positive for Covid 10 days prior to admission so she is out of the window for remdesivir * On Decadron and baricitinib. * PUlmonology and ID are on board. * Breathing treatments with bronchodilators. Titrate oxygen to maintain saturation above 90%. * #Hypothyroidism: On Synthroid DVT prophylaxis: Lovenox * Disposition: transfer to PCU today Charges/Coding Visit Charges Inpatient E&M: 35711 Subs Hosp L3
--- NOTE | 2021-07-27 13:57 | CON.PCM.CC_ITS ---
Assessment & Plan Assessment/Plan (1) Hypoxia: (2) Pneumonia due to 2019 novel coronavirus: PLAN: RECOMMENDATIONS: 1. Continue heated high flow oxygen and wean FiO2 for saturations greater than 90%. 2. Continue Decadron, twice daily Lovenox and baricitinib as ordered. 3. Encourage incentive spirometer use and mobilize patient as tolerated. 4. If the patient were to decompensate further clinically, empiric antimicrobials should be initiated. IMPRESSIONS: 1. Acute hypoxemic respiratory failure secondary to COVID-19 pneumonia The patient presented to the hospital with worsening dyspnea, cough and hypoxemia. She was outside of the window for treatment with remdesivir. The patient was subsequently placed on Decadron, twice daily Lovenox and baricitinib, following evaluation by infectious diseases. Her oxygenation status worsened on July 26 and she was transferred to the ICU, where she has been maintained on heated high flow oxygen. The patient appears stable from a respiratory perspective. If she were to decompensate clinically in the future, I would recommend empiric antimicrobials be initiated. Diuretics can be utilized as needed to maintain euvolemic state. 2. Advanced age/hypothyroidism/anxiety/GERD Complicates care, management, recovery and prognosis. Continue home medications as indicated. This note was generated with [employer] dictation software. It may contain incorrect words, spelling, and punctuation that were not noted in checking the note before signing. HPI Consult Data Date of Consult: 07/27/21 HPI Narrative Reason for Consultation: Acute hypoxemic respiratory failure secondary to COVID- 19 pneumonia HPI Narrative: The patient is an 81-year-old female, with a history as outlined below, who presented to the emergency department on July 26 with progressive dyspnea and cough. Symptom onset was sometime around July 13. The patient apparently tested positive for coronavirus the following day. She was evaluated in the emergency department on July 22 and was set up for home-going supplemental oxygen and was provided with a prescription for Decadron. However, the patient's symptoms continue to progress despite the aforementioned. She is unvaccinated against coronavirus. On presentation to the emergency department, the patient was initially documented to be afebrile and hemodynamically stable. Laboratory evaluation revealed a normal white blood cell count. D-dimer was noted to be 0.98. Chemistry profile was unrevealing. However, lactate was elevated to 4.2. Chest x-ray demonstrated bilateral airspace opacities. The patient was started on supplemental oxygen along with Decadron, twice daily Lovenox and baricitinib. She was subsequently admitted to the hospital for further management. On the afternoon of July 26, the patient decompensated from a respiratory perspective with increasing oxygen demand. She was then transferred to the medical intensive care unit. However, the patient has remained stable on heated high flow oxygen. [facility] Medical History Hypothyroidism Psoriasis Home Medications albuterol sulfate [Ventolin HFA] 1 - 2 puff INHALATION Q4H PRN PRN #1 device 07/22/21 [Rx Last Taken Unknown] azithromycin [Zithromax Z-Marito] See Rx Instructions .ROUTE .COMPLEX #6 tab 07/22/21 [Rx Last Taken Unknown] dexamethasone [Decadron] 6 mg PO DAILY #10 tab 07/22/21 [Rx Last Taken Unknown] buspirone 5 mg 07/26/21 [History Last Taken Unknown] levothyroxine 75 mcg PO DAILY 07/26/21 [History Last Taken Unknown] pantoprazole 40 mg PO PRN PRN 07/26/21 [History Last Taken Unknown] paroxetine HCl 40 mg PO DAILY 07/26/21 [History Last Taken Unknown] Allergy/AdvReac Type Severity Reaction Status Date / Time propoxyphene [From Darvon] AdvReac Nausea Verified 07/22/21 14:01 Family History (Updated 07/26/21 @ 03:[address] Enrico Persaud MD) Other Cancer Surgical History Hx of exploratory laparotomy Social History Smoking Status: Never smoker ROS Constitutional Constitutional: Reports fatigue and malaise Eyes Eyes: Denies blurry vision or change in vision ENT HEENT: Denies dysphagia, epistaxis or headache(s) Cardiovascular Cardiovascular: Reports dyspnea; Denies chest pain or dizziness Respiratory/Chest Respiratory/Chest: Reports cough and dyspnea Gastrointestinal Gastrointestinal: Denies abdominal pain, diarrhea, nausea or vomiting Genitourinary Genitourinary: Denies difficulty urinating Musculoskeletal Musculoskeletal: Denies arthralgias, back pain or joint pain Integumentary Integumentary: Denies lesions, rash or skin ulcer Neurologic Neurologic: Denies abnormal gait or abnormal speech Psychiatric Psychiatric: Denies anxiety or depression Endocrine Endocrinology: Denies fatigue or polydipsia Hematologic/Lymphatic Hematologic/Lymphatic: Denies easy bleeding or easy bruising Physical Exam Const alert and no apparent distress Constitutional Narrative: Sitting in bedside recliner with heated high flow oxygen in place. General Appearance: cooperative HEENT normocephalic, head/scalp atraumatic and moist oral mucous membranes Eyes PERRL and EOMs intact bilaterally Neck supple General: trachea midline Chest inspection of chest normal Resp normal respiratory effort and no use of accessory muscles Auscultation: diminished lung sounds Cardio regular rate and regular rhythm GI normal to inspection, nondistended, normoactive bowel sounds Extremity no clubbing, cyanosis or edema Skin no rashes or lesions noted Neuro CN's II-XII intact bilaterally, moves all extremities and no focal motor deficits Psych cooperative Lab / Micro Data Result Diagrams: 07/27/21 04:30 07/27/21 04:30 Labs: Laboratory Results - last 24 hr 07/26/21 14:25: D-Dimer Quant (PE/DVT) 0.98 H* 07/27/21 04:30: WBC 4.5, RBC 4.15 L, Hgb 10.5 L, Hct 33.3 L, MCV 80.2 L, MCH 25.3 L, MCHC 31.5 L, RDW Std Deviation 47.5 H, RDW Coeff of Cecille 16.2 H, Plt Count 448, MPV 9.0 07/27/21 04:30: Sodium 134 L, Potassium 4.6, Chloride 97 L, Carbon Dioxide 29.0, Anion Gap 8, BUN 21 H, Creatinine 0.78, Estim Creat Clear Calc 31.15, Est GFR (MDRD) Af Amer 90, Est GFR (MDRD) Non-Af 75, BUN/Creatinine Ratio 26.8 H, Glucose 112 H, Calcium 8.9, Total Bilirubin 0.40, AST 27, ALT 20, Alkaline Phosphatase 86, Total Protein 7.8, Albumin 2.4 L, Globulin 5.4 H, Albumin/Globulin Ratio 0.4 L ABG Data ABG results: ABG 07/26/21 14:37 Specimen Type ART Sample Site L Radial pH 7.46 H Bicarbonate Actual 26.6 H Total CO2 28 Base Excess 3 H O2 Saturation 89 L O2 % 80 ABG pCO2 37.6 ABG pO2 53 L [place] Test Positive O2 Delivery Device HFNC Clinical Comments 60L 80% Charges/Coding Visit Charges Inpatient E&M: 57391 Init Hosp L3
--- NOTE | 2021-07-27 15:22 | CASEMGMT ---
Addendum entered by Ayaka Dunn 07/27/21 15:26: Patient had covid testing completed at [facility] and patient sent snapshot of results to this CM. Original Note: RN CM Face to Face with patient for initial transition planning/care coordination assessment. RN CM introduced self and role at [facility]. Patient lying in bed, alert and oriented. Patient willing to participate in assessment and is able to answer all questions appropriately. Care providers, pharmacy, and demographics verified. Patient wishes to discharge home, denies need for home health at this time. Patient states she has no further needs or concerns at this time. CM to follow for discharge planning needs that may arise. PCP: Dr. Mcdonald in [place] Specialists: none Preferred Pharmacy: [facility] Insurance: [employer] Prescription Benefit: yes Living Will/HPOA: none LNOK: daughter Living Arrangements: Patient is currently staying with daughter in [place] which is a single story home. Patient states she is independent at home. Transportation: daughter DME/HHC: Patient states she has oxygen that was setup with [employer] through the ED. Patient denied further DME or previous HHC. Disposition Plan: Patient to discharge home with family support and follow-up plans in place. Ayaka CHAMPAGNE, RN, CM
[2021-07-27] MEDS: Paroxetine 20 MG Tablet 40 MG PO (20:25)
[2021-07-27] MEDS: Enoxaparin 40 MG/0.4 ML Syringe SC (20:25)
[2021-07-28] VITALS (18 sets, daily range): BP systolic 106–146; BP diastolic 48–78; PULSE 63–85; RESP 13–22; TEMP 36.3–37.4; O2SAT 90–100
[2021-07-28 04:25] LABS: Hematocrit 34.3 % (37-47); Mean Corp Hgb Conc 32.1 g/dL (32-36); Mean Corpuscular Hgb 25.5 pg (27.0-32.0); Mean Corpuscular Volume 79.6 fL (81-99); Mean Platelet Vol. 9.3 fl (6.2-12.0); Platelet Count 513 K/mm3 (150-450); RBC Distribution Width CV 15.9 % (11.6-14.6); RBC Distribution Width SD 46.5 fl (35.1-43.9); Red Blood Count 4.31 M/mm3 (4.2-5.4); White Blood Count 4.6 K/mm3 (4.4-11.0)
[2021-07-28 04:46] LABS: ALB/GLOB Ratio 0.5 RATIO (0.9-2.4); AST(SGOT) 26 U/L (15-37); Alanine Aminotransfer ALT/SGPT 20 U/L (13-56); Albumin, Serum 2.5 g/dL (3.2-5.0); Alkaline Phosphatase 84 U/L (45-117); Anion Gap 9 (5-15); BUN 32 mg/dL (7-18); BUN/Creat Ratio 42.2 RATIO (10-20); Calcium,Total 9.4 mg/dL (8.5-10.1); Chloride 98 mmol/L (98-107); Creatinine, Serum 0.76 mg/dL (0.55-1.02); EST Glomerular Filtration Rate 78 mL/min (>60); Est Glom Filt Rate - Afr Amer 94 mL/min (>60); Estimated Creatinine Clearance 31.15 ml/min; Globulin 5.3 g/dL (2.2-4.2); Glucose 92 mg/dL (74-106); Potassium 4.2 mmol/L (3.5-5.1); Protein, Total 7.8 g/dL (6.4-8.2); Sodium Level 134 mmol/L (136-145)
[2021-07-28] MEDS: Levothyroxine 75 MCG Tablet PO (06:17)
[2021-07-28] MEDS: Ipratropium/Albuterol Sulfate 3 ML AMPUL.NEB INHALATION (06:53)
--- NOTE | 2021-07-28 06:53 | PN.CC_ITS ---
Assessment & Plan Assessment/Plan (1) Hypoxia: (2) Pneumonia due to 2019 novel coronavirus: PLAN: RECOMMENDATIONS: 1. Continue heated high flow oxygen and wean FiO2 for saturations greater than 90%. 2. Continue Decadron, twice daily Lovenox and baricitinib as ordered. 3. Encourage incentive spirometer use and mobilize patient as tolerated. 4. Diuretics, as needed, to maintain euvolemic state. IMPRESSIONS: 1. Acute hypoxemic respiratory failure secondary to COVID-19 pneumonia The patient presented to the hospital with worsening dyspnea, cough and hypoxemia. She was outside of the window for treatment with remdesivir. The patient was subsequently placed on Decadron, twice daily Lovenox and baricitinib, following evaluation by infectious diseases. Her oxygenation status worsened on July 26 and she was transferred to the ICU, where she has been maintained on heated high flow oxygen. The patient appears stable from a respiratory perspective. If she were to decompensate clinically in the future, I would recommend empiric antimicrobials be initiated. Diuretics can be utilized as needed to maintain euvolemic state. 2. Advanced age/hypothyroidism/anxiety/GERD Complicates care, management, recovery and prognosis. Continue home medications as indicated. This note was generated with [employer] dictation software. It may contain incorrect words, spelling, and punctuation that were not noted in checking the note before signing. Subjective Subjective The patient was seen and examined at the bedside this morning. Events from the last 24 hours have been reviewed. The patient is currently afebrile, hemodynamically stable and maintaining appropriate oxygen saturations on Airvo heated high flow with an FiO2 requirement of 45%. Labs are stable this morning. The patient remains on Decadron, baricitinib and Lovenox. No overnight events were noted by the nursing staff. Objective Data Objective Data The patient's most recent lab work, culture data and imaging studies have all been personally reviewed. Vital Signs: Vital Signs Temp Pulse Resp BP Pulse Ox 97.4 F L 63 19 H 146/65 H 90 07/28/21 00:00 07/28/21 04:31 07/28/21 00:00 07/28/21 00:00 07/28/21 04:31 Oxygen Flow Rate (L/min) 55 Oxygen Delivery Method Airvo Weight: 65.2 kg Body Mass Index (BMI) 28.0 Intake & Output: Intake and Output for Last 24 Hours 11/01/21 11/02/21 11/03/21 23:59 23:59 23:59 Intake Total 380 / 380 820 / 940 120 / 120 Output Total 100 / 100 250 / 250 Balance 280 / 280 570 / 690 120 / 120 Lab / Micro Data Attestation: I reviewed the patient's lab results. Result Diagrams: 07/28/21 03:48 07/28/21 03:48 Labs: Laboratory Results - last 24 hr 07/28/21 03:48: WBC 4.6, RBC 4.31, Hgb 11.0 L, Hct 34.3 L, MCV 79.6 L, MCH 25.5 L, MCHC 32.1, RDW Std Deviation 46.5 H, RDW Coeff of Cecille 15.9 H, Plt Count 513 H , MPV 9.3 07/28/21 03:48: Sodium 134 L, Potassium 4.2, Chloride 98, Carbon Dioxide 27.0, Anion Gap 9, BUN 32 H, Creatinine 0.76, Estim Creat Clear Calc 31.15, Est GFR (MDRD) Af Amer 94, Est GFR (MDRD) Non-Af 78, BUN/Creatinine Ratio 42.2 H, Glucose 92, Calcium 9.4, Total Bilirubin 0.50, AST 26, ALT 20, Alkaline Phosphatase 84, Total Protein 7.8, Albumin 2.5 L, Globulin 5.3 H, Albumin/Globulin Ratio 0.5 L Physical Exam Const alert and no apparent distress General Appearance: cooperative HEENT normocephalic, head/scalp atraumatic and moist oral mucous membranes Eyes PERRL and EOMs intact bilaterally Neck supple General: trachea midline Chest inspection of chest normal Resp normal respiratory effort and no use of accessory muscles Auscultation: diminished lung sounds Cardio regular rate and regular rhythm GI normal to inspection, nondistended, normoactive bowel sounds Extremity no clubbing, cyanosis or edema Skin no rashes or lesions noted Neuro CN's II-XII intact bilaterally, moves all extremities and no focal motor def icits Psych cooperative Charges/Coding Visit Charges Inpatient E&M: 91900 Subs Hosp L3
[2021-07-28] MEDS: Enoxaparin 40 MG/0.4 ML Syringe SC ×2 (08:38→20:55)
[2021-07-28] MEDS: guaiFENesin 600 MG Tablet PO ×2 (08:40→20:55)
[2021-07-28] MEDS: dexAMETHasone 2 MG TABLET 6 MG PO (08:40)
--- NOTE | 2021-07-28 11:51 | PN.HOSP_ITS ---
Subjective Subjective Patient seen and examined. She has no active complaints today. She remains on AirVO. She has otherwise remained hemodynamically stable. REview of systems is otherwise negative. Objective Data Objective Data Vital Signs: Vital Signs Temp Pulse Resp BP Pulse Ox 97.8 F 70 13 106/69 96 07/28/21 08:00 07/28/21 10:16 07/28/21 10:16 07/28/21 08:00 07/28/21 10:16 Oxygen Flow Rate (L/min) 45 Oxygen Delivery Method Airvo Weight: 143 lb 11.862 oz Body Mass Index (BMI) 28.0 Intake & Output: Intake and Output for Last 24 Hours 07/26/21 07/27/21 07/28/21 23:59 23:59 23:59 Intake Total 380 / 380 820 / 940 120 / 120 Output Total 100 / 100 250 / 250 Balance 280 / 280 570 / 690 120 / 120 Lab / Micro Data Result Diagrams: 07/28/21 03:48 07/28/21 03:48 Labs: Laboratory Results - last 24 hr 07/28/21 03:48: WBC 4.6, RBC 4.31, Hgb 11.0 L, Hct 34.3 L, MCV 79.6 L, MCH 25.5 L, MCHC 32.1, RDW Std Deviation 46.5 H, RDW Coeff of Cecille 15.9 H, Plt Count 513 H , MPV 9.3 07/28/21 03:48: Sodium 134 L, Potassium 4.2, Chloride 98, Carbon Dioxide 27.0, Anion Gap 9, BUN 32 H, Creatinine 0.76, Estim Creat Clear Calc 31.15, Est GFR (MDRD) Af Amer 94, Est GFR (MDRD) Non-Af 78, BUN/Creatinine Ratio 42.2 H, Glucose 92, Calcium 9.4, Total Bilirubin 0.50, AST 26, ALT 20, Alkaline Phosphatase 84, Total Protein 7.8, Albumin 2.5 L, Globulin 5.3 H, Albumin/Globulin Ratio 0.5 L Physical Exam Const alert, oriented x3 and no apparent distress Exam Limitations: no limitations HEENT head/scalp atraumatic and moist oral mucous membranes Head and Scalp: normocephalic Eyes PERRL, EOMs intact bilaterally and conjunctivae normal Neck no lymphadenopathy and supple Resp Resp Narrative: diminished breath sounds bibasally, no wheezes, no crackles. on AirVo Cardio regular rate, regular rhythm, S1 normal heart sound, S2 normal heart sound and no murmurs GI normal to inspection, nondistended, normoactive bowel sounds, soft to palpation, non-tender and non-distended Extremity normal to inspection, full ROM and no clubbing, cyanosis or edema Peripheral Pulses: Yes pulses 2+ throughout Skin no rashes or lesions noted Neuro oriented x3, CN's II-XII intact bilaterally and moves all extremities Sensorium / Orientation: awake and alert Psych affect normal Assessment & Plan Assessment/Plan (1) Hypoxia: (2) Pneumonia due to 2019 novel coronavirus: PLAN: #Acute hypoxic respiratory failure due to COVID 19 pneumonia * on AirVo * out of the window for remdesivir. * on baricitinib and decadron * PUlmonology and ID are on board. * Breathing treatments with bronchodilators. Titrate oxygen to maintain saturation above 90%. * #Hypothyroidism: On Synthroid DVT prophylaxis: Lovenox * Charges/Coding Visit Charges Inpatient E&M: 78617 Subs Hosp L3
[2021-07-28] MEDS: Paroxetine 20 MG Tablet 40 MG PO (20:55)
[2021-07-29] VITALS (15 sets, daily range): BP systolic 108–145; BP diastolic 57–63; PULSE 60–74; RESP 16–20; TEMP 36.3–36.9; O2SAT 91–96
[2021-07-29] MEDS: Levothyroxine 75 MCG Tablet PO (05:35)
[2021-07-29 06:46] LABS: Hematocrit 32.3 % (37-47); Hemoglobin 10.5 g/dL (12.0-15.0); Mean Corp Hgb Conc 32.5 g/dL (32-36); Mean Corpuscular Hgb 25.7 pg (27.0-32.0); Mean Corpuscular Volume 79.2 fL (81-99); Mean Platelet Vol. 9.1 fl (6.2-12.0); Platelet Count 506 K/mm3 (150-450); RBC Distribution Width CV 15.6 % (11.6-14.6); RBC Distribution Width SD 44.7 fl (35.1-43.9); Red Blood Count 4.08 M/mm3 (4.2-5.4); White Blood Count 6.6 K/mm3 (4.4-11.0)
[2021-07-29 07:10] LABS: ALB/GLOB Ratio 0.5 RATIO (0.9-2.4); AST(SGOT) 28 U/L (15-37); Alanine Aminotransfer ALT/SGPT 24 U/L (13-56); Albumin, Serum 2.4 g/dL (3.2-5.0); Alkaline Phosphatase 80 U/L (45-117); Anion Gap 8 (5-15); BUN 24 mg/dL (7-18); BUN/Creat Ratio 34.5 RATIO (10-20); Calcium,Total 9.1 mg/dL (8.5-10.1); Chloride 100 mmol/L (98-107); EST Glomerular Filtration Rate 86 mL/min (>60); Est Glom Filt Rate - Afr Amer 104 mL/min (>60); Estimated Creatinine Clearance 31.15 ml/min; Glucose 84 mg/dL (74-106); Protein, Total 7.4 g/dL (6.4-8.2); Sodium Level 134 mmol/L (136-145)
--- NOTE | 2021-07-29 10:32 | PCM.PN.INT ---
Assessment & Plan Assessment/Plan (1) Hypoxia: (2) Pneumonia due to 2019 novel coronavirus: PLAN: RECOMMENDATIONS: 1. Continue heated high flow oxygen and wean FiO2 for saturations greater than 90%. 2. Continue Decadron, twice daily Lovenox and baricitinib as ordered. 3. Encourage incentive spirometer use and mobilize patient as tolerated. 4. Diuretics, as needed, to maintain euvolemic state. Will give lasix today x 1. IMPRESSIONS: 1. Acute hypoxemic respiratory failure secondary to COVID-19 pneumonia The patient presented to the hospital with worsening dyspnea, cough and hypoxemia. She was outside of the window for treatment with remdesivir. The patient was subsequently placed on Decadron, twice daily Lovenox and baricitinib, following evaluation by infectious diseases. The patient's respiratory status remained stable on heated high flow oxygen, which will be continued. Wean FiO2 to maintain oxygen saturations at or above 90%. Diuretics can be utilized as needed to maintain euvolemic state. If she were to decompensate clinically in the future, I would recommend empiric antimicrobials be initiated. 2. Advanced age/hypothyroidism/anxiety/GERD Complicates care, management, recovery and prognosis. Continue home medications as indicated. This note was generated with [employer] dictation software. It may contain incorrect words, spelling, and punctuation that were not noted in checking the note before signing. Subjective Subjective The patient was seen and examined at the bedside this morning. Events from the last 24 hours have been reviewed. The patient is currently afebrile, hemodynamically stable and maintaining appropriate oxygen saturations on Airvo heated high flow with an FiO2 requirement of 55%. Morning labs remain stable. The patient remains on Decadron, baricitinib and Lovenox. She is currently documented to be overall net +1.7 L for the hospitalization. Objective Data Objective Data The patient's most recent lab work, culture data and imaging studies have all been personally reviewed. Vital Signs: Vital Signs Temp Pulse Resp BP Pulse Ox 97.9 F 62 18 145/58 H 93 07/29/21 02:26 07/29/21 07:39 07/29/21 02:26 07/29/21 02:26 07/29/21 07:39 Oxygen Flow Rate (L/min) 45 Oxygen Delivery Method Airvo Weight: 65.2 kg Body Mass Index (BMI) 28.0 Intake & Output: Intake and Output for Last 24 Hours 07/27/21 07/28/21 07/29/21 23:59 23:59 23:59 Intake Total 820 / 940 840 / 840 Output Total 250 / 250 Balance 570 / 690 840 / 840 Lab / Micro Data Attestation: I reviewed the patient's lab results. Result Diagrams: 07/29/21 06:10 07/29/21 06:10 Labs: Laboratory Results - last 24 hr 07/29/21 06:10: WBC 6.6, RBC 4.08 L, Hgb 10.5 L, Hct 32.3 L, MCV 79.2 L, MCH 25.7 L, MCHC 32.5, RDW Std Deviation 44.7 H, RDW Coeff of Cecille 15.6 H, Plt Count 506 H, MPV 9.1 07/29/21 06:10: Sodium 134 L, Potassium 4.0, Chloride 100, Carbon Dioxide 26.0, Anion Gap 8, BUN 24 H, Creatinine 0.70, Estim Creat Clear Calc 31.15, Est GFR (MDRD) Af Amer 104, Est GFR (MDRD) Non-Af 86, BUN/Creatinine Ratio 34.5 H, Glucose 84, Calcium 9.1, Total Bilirubin 0.50, AST 28, ALT 24, Alkaline Phosphatase 80, Total Protein 7.4, Albumin 2.4 L, Globulin 5.0 H, Albumin/Globulin Ratio 0.5 L Physical Exam Const alert and no apparent distress General Appearance: cooperative HEENT normocephalic, head/scalp atraumatic and moist oral mucous membranes Eyes PERRL and EOMs intact bilaterally Neck supple General: trachea midline Chest inspection of chest normal Resp normal respiratory effort and no use of accessory muscles Auscultation: diminished lung sounds Cardio regular rate and regular rhythm GI normal to inspection, nondistended, normoactive bowel sounds Extremity no clubbing, cyanosis or edema Skin no rashes or lesions noted Neuro CN's II-XII intact bilaterally, moves all extremities and no focal motor deficits Psych cooperative Charges/Coding Visit Charges Inpatient E&M: 27528 Subs Hosp L2
[2021-07-29] MEDS: dexAMETHasone 2 MG TABLET 6 MG PO (10:36)
[2021-07-29] MEDS: Enoxaparin 40 MG/0.4 ML Syringe SC ×2 (10:36→23:14)
[2021-07-29] MEDS: guaiFENesin 600 MG Tablet PO ×2 (10:36→23:15)
[2021-07-29] MEDS: Furosemide 40 MG/4 ML Vial IV (11:58)
--- NOTE | 2021-07-29 13:39 | PN.HOSP_ITS ---
Subjective Subjective Patient seen and examined. She was still on air Vo. She was on FiO2 of 58% with oxygen flow rate of 45 L/min. She had no active complaints and review of systems otherwise negative. She has otherwise remained hemodynamically stable. Objective Data Objective Data Vital Signs: Vital Signs Temp Pulse Resp BP Pulse Ox 97.8 F 72 18 108/57 L 94 07/29/21 10:33 07/29/21 10:33 07/29/21 10:33 07/29/21 10:33 07/29/21 10:33 Oxygen Flow Rate (L/min) 45 Oxygen Delivery Method Airvo Weight: 143 lb 11.862 oz Body Mass Index (BMI) 28.0 Intake & Output: Intake and Output for Last 24 Hours 07/27/21 07/28/21 07/29/21 23:59 23:59 23:59 Intake Total 820 / 940 840 / 840 Output Total 250 / 250 Balance 570 / 690 840 / 840 Lab / Micro Data Result Diagrams: 07/29/21 06:10 07/29/21 06:10 Labs: Laboratory Results - last 24 hr 07/29/21 06:10: WBC 6.6, RBC 4.08 L, Hgb 10.5 L, Hct 32.3 L, MCV 79.2 L, MCH 25.7 L, MCHC 32.5, RDW Std Deviation 44.7 H, RDW Coeff of Cecille 15.6 H, Plt Count 506 H, MPV 9.1 07/29/21 06:10: Sodium 134 L, Potassium 4.0, Chloride 100, Carbon Dioxide 26.0, Anion Gap 8, BUN 24 H, Creatinine 0.70, Estim Creat Clear Calc 31.15, Est GFR (MDRD) Af Amer 104, Est GFR (MDRD) Non-Af 86, BUN/Creatinine Ratio 34.5 H, Glucose 84, Calcium 9.1, Total Bilirubin 0.50, AST 28, ALT 24, Alkaline Phosphatase 80, Total Protein 7.4, Albumin 2.4 L, Globulin 5.0 H, Albumin/Globulin Ratio 0.5 L Physical Exam Const alert, oriented x3 and no apparent distress Exam Limitations: no limitations HEENT head/scalp atraumatic and moist oral mucous membranes Head and Scalp: normocephalic Eyes PERRL, EOMs intact bilaterally and conjunctivae normal Neck no lymphadenopathy and supple Resp Resp Narrative: diminished breath sounds bibasally, no wheezes, no crackles. remains on AirVo Cardio regular rate, regular rhythm, S1 normal heart sound, S2 normal heart sound and no murmurs GI normal to inspection, nondistended, normoactive bowel sounds, soft to palpation, non-tender and non-distended Extremity normal to inspection, full ROM and no clubbing, cyanosis or edema Peripheral Pulses: Yes pulses 2+ throughout Skin no rashes or lesions noted Neuro oriented x3, CN's II-XII intact bilaterally and moves all extremities Sensorium / Orientation: awake and alert Psych affect normal Assessment & Plan Assessment/Plan (1) Hypoxia: (2) Pneumonia due to 2019 novel coronavirus: PLAN: #Acute hypoxic respiratory failure due to COVID 19 pneumonia * still on AirVo * out of the window for remdesivir. * on baricitinib and decadron * PUlmonology and ID are on board. * Breathing treatments with bronchodilators. Titrate oxygen to maintain saturation above 90%. * * #Hypothyroidism: On Synthroid DVT prophylaxis: Lovenox 40mg bid. * Charges/Coding Visit Charges Inpatient E&M: 46178 Subs Hosp L3
[2021-07-29] MEDS: Paroxetine 20 MG Tablet 40 MG PO (23:15)
[2021-07-30] VITALS (16 sets, daily range): BP systolic 117–137; BP diastolic 49–70; PULSE 59–83; RESP 18–22; TEMP 35.4–36.4; O2SAT 88–97
[2021-07-30] MEDS: Levothyroxine 75 MCG Tablet PO (06:19)
[2021-07-30] MEDS: Acetaminophen 325 MG Tablet 650 MG PO (06:34)
[2021-07-30 06:58] LABS: Hemoglobin 11.1 g/dL (12.0-15.0); Mean Corp Hgb Conc 32.6 g/dL (32-36); Mean Corpuscular Hgb 25.6 pg (27.0-32.0); Mean Corpuscular Volume 78.3 fL (81-99); Mean Platelet Vol. 9.3 fl (6.2-12.0); Platelet Count 537 K/mm3 (150-450); RBC Distribution Width CV 15.5 % (11.6-14.6); RBC Distribution Width SD 44.2 fl (35.1-43.9); Red Blood Count 4.34 M/mm3 (4.2-5.4); White Blood Count 4.7 K/mm3 (4.4-11.0)
[2021-07-30 07:31] LABS: ALB/GLOB Ratio 0.4 RATIO (0.9-2.4); AST(SGOT) 25 U/L (15-37); Alanine Aminotransfer ALT/SGPT 29 U/L (13-56); Albumin, Serum 2.4 g/dL (3.2-5.0); Alkaline Phosphatase 85 U/L (45-117); Anion Gap 7 (5-15); BUN 26 mg/dL (7-18); BUN/Creat Ratio 36.6 RATIO (10-20); Chloride 95 mmol/L (98-107); Creatinine, Serum 0.71 mg/dL (0.55-1.02); EST Glomerular Filtration Rate 84 mL/min (>60); Est Glom Filt Rate - Afr Amer 101 mL/min (>60); Estimated Creatinine Clearance 31.15 ml/min; Globulin 5.4 g/dL (2.2-4.2); Glucose 94 mg/dL (74-106); Potassium 3.9 mmol/L (3.5-5.1); Protein, Total 7.8 g/dL (6.4-8.2); Sodium Level 132 mmol/L (136-145)
--- NOTE | 2021-07-30 08:02 | PCM.PN.INT ---
Assessment & Plan Assessment/Plan (1) Hypoxia: (2) Pneumonia due to 2019 novel coronavirus: PLAN: RECOMMENDATIONS: 1. Continue heated high flow oxygen and wean FiO2 for saturations greater than 90%. 2. Continue Decadron, twice daily Lovenox and baricitinib as ordered. 3. Encourage incentive spirometer use and mobilize patient as tolerated. 4. Diuretics, as needed, to maintain euvolemic state. IMPRESSIONS: 1. Acute hypoxemic respiratory failure secondary to COVID-19 pneumonia The patient presented to the hospital with worsening dyspnea, cough and hypoxemia. She was outside of the window for treatment with remdesivir. The patient was subsequently placed on Decadron, twice daily Lovenox and baricitinib, following evaluation by infectious diseases. The patient's respiratory status remained stable on heated high flow oxygen, which will be continued. Wean FiO2 to maintain oxygen saturations at or above 90%. Diuretics can be utilized as needed to maintain euvolemic state. If she were to decompensate clinically in the future, I would recommend empiric antimicrobials be initiated. 2. Advanced age/hypothyroidism/anxiety/GERD Complicates care, management, recovery and prognosis. Continue home medications as indicated. This note was generated with [employer] dictation software. It may contain incorrect words, spelling, and punctuation that were not noted in checking the note before signing. Subjective Subjective The patient was seen and examined at the bedside this morning. Events from the last 24 hours have been reviewed. The patient is currently afebrile, hemodynamically stable and maintaining appropriate oxygen saturations on Airvo heated high flow with an FiO2 requirement of 55%. The patient remains on Decadron, baricitinib and Lovenox. She is currently documented to be overall net +1.3 L for the hospitalization. The patient did receive a one-time dose of IV Lasix yesterday. Objective Data Objective Data The patient's most recent lab work, culture data and imaging studies have all been personally reviewed. Vital Signs: Vital Signs Temp Pulse Resp BP Pulse Ox 97.3 F L 69 20 H 134/56 H 96 07/30/21 05:20 07/30/21 07:01 07/30/21 05:20 07/30/21 05:20 07/30/21 05:20 Oxygen Flow Rate (L/min) 45 Oxygen Delivery Method Airvo Weight: 65.2 kg Body Mass Index (BMI) 28.0 Intake & Output: Intake and Output for Last 24 Hours 07/28/21 07/29/21 07/30/21 23:59 23:59 23:59 Intake Total 840 / 840 480 / 480 Output Total 650 / 650 200 / 200 Balance 840 / 840 -170 / -170 -200 / -200 Lab / Micro Data Attestation: I reviewed the patient's lab results. Result Diagrams: 07/30/21 05:54 07/30/21 05:54 Labs: Laboratory Results - last 24 hr 07/30/21 05:54: WBC 4.7, RBC 4.34, Hgb 11.1 L, Hct 34.0 L, MCV 78.3 L, MCH 25.6 L, MCHC 32.6, RDW Std Deviation 44.2 H, RDW Coeff of Cecille 15.5 H, Plt Count 537 H, MPV 9.3 07/30/21 05:54: Sodium 132 L, Potassium 3.9, Chloride 95 L, Carbon Dioxide 30.0, Anion Gap 7, BUN 26 H, Creatinine 0.71, Estim Creat Clear Calc 31.15, Est GFR (MDRD) Af Amer 101, Est GFR (MDRD) Non-Af 84, BUN/Creatinine Ratio 36.6 H, Glucose 94, Calcium 9.0, Total Bilirubin 0.50, AST 25, ALT 29, Alkaline Phosphatase 85, Total Protein 7.8, Albumin 2.4 L, Globulin 5.4 H, Albumin/Globulin Ratio 0.4 L Physical Exam Const alert and no apparent distress General Appearance: cooperative HEENT normocephalic, head/scalp atraumatic and moist oral mucous membranes Eyes PERRL and EOMs intact bilaterally Neck supple General: trachea midline Chest inspection of chest normal Resp normal respiratory effort and no use of accessory muscles Auscultation: diminished lung sounds Cardio regular rate and regular rhythm GI normal to inspection, nondistended, normoactive bowel sounds Extremity no clubbing, cyanosis or edema Skin no rashes or lesions noted Neuro CN's II-XII intact bilaterally, moves all extremities and no focal motor deficits Psych cooperative Charges/Coding Visit Charges Inpatient E&M: 23352 Subs Hosp L2
[2021-07-30] MEDS: guaiFENesin 600 MG Tablet PO ×2 (09:12→20:53)
[2021-07-30] MEDS: Enoxaparin 40 MG/0.4 ML Syringe SC ×2 (09:12→20:53)
[2021-07-30] MEDS: dexAMETHasone 2 MG TABLET 6 MG PO (09:13)
--- NOTE | 2021-07-30 10:41 | PN.HOSP_ITS ---
Subjective Subjective Patient seen and examined. She remains on AirVo. She had no active complaints and felt well otherwise. Review of systems is otherwise negative. She feels well. She is on FiO2 of 55%. Objective Data Objective Data Vital Signs: Vital Signs Temp Pulse Resp BP Pulse Ox 97.3 F L 69 20 H 134/56 H 95 07/30/21 05:20 07/30/21 07:01 07/30/21 05:20 07/30/21 05:20 07/30/21 07:10 Oxygen Flow Rate (L/min) 8 Oxygen Delivery Method Nasal Cannula Weight: 143 lb 11.862 oz Body Mass Index (BMI) 28.0 Intake & Output: Intake and Output for Last 24 Hours 07/28/21 07/29/21 07/30/21 23:59 23:59 23:59 Intake Total 840 / 840 480 / 480 Output Total 650 / 650 200 / 200 Balance 840 / 840 -170 / -170 -200 / -200 Lab / Micro Data Result Diagrams: 07/30/21 05:54 07/30/21 05:54 Labs: Laboratory Results - last 24 hr 07/30/21 05:54: WBC 4.7, RBC 4.34, Hgb 11.1 L, Hct 34.0 L, MCV 78.3 L, MCH 25.6 L, MCHC 32.6, RDW Std Deviation 44.2 H, RDW Coeff of Cecille 15.5 H, Plt Count 537 H , MPV 9.3 07/30/21 05:54: Sodium 132 L, Potassium 3.9, Chloride 95 L, Carbon Dioxide 30.0, Anion Gap 7, BUN 26 H, Creatinine 0.71, Estim Creat Clear Calc 31.15, Est GFR (MDRD) Af Amer 101, Est GFR (MDRD) Non-Af 84, BUN/Creatinine Ratio 36.6 H, Glucose 94, Calcium 9.0, Total Bilirubin 0.50, AST 25, ALT 29, Alkaline Phosphatase 85, Total Protein 7.8, Albumin 2.4 L, Globulin 5.4 H, Albumin/Globulin Ratio 0.4 L Physical Exam Const alert, oriented x3 and no apparent distress Exam Limitations: no limitations HEENT head/scalp atraumatic and moist oral mucous membranes Head and Scalp: normocephalic Eyes PERRL, EOMs intact bilaterally and conjunctivae normal Neck no lymphadenopathy and supple Resp Resp Narrative: diminished breath sounds bibasally, no wheezes, no crackles. remains on AirVo Cardio regular rate, regular rhythm, S1 normal heart sound, S2 normal heart sound and no murmurs GI normal to inspection, nondistended, normoactive bowel sounds, soft to palpation, non-tender and non-distended Extremity normal to inspection, full ROM and no clubbing, cyanosis or edema Peripheral Pulses: Yes pulses 2+ throughout Skin no rashes or lesions noted Neuro oriented x3, CN's II-XII intact bilaterally and moves all extremities Sensorium / Orientation: awake and alert Psych affect normal Assessment & Plan Assessment/Plan (1) Hypoxia: (2) Pneumonia due to 2019 novel coronavirus: PLAN: #Acute hypoxic respiratory failure due to COVID 19 pneumonia * still on AirVo, feeling better today. * out of the window for remdesivir. * on baricitinib and decadron * PUlmonology and ID are on board. * Breathing treatments with bronchodilators. Titrate oxygen to maintain saturation above 90%. * * #Hypothyroidism: On Synthroid DVT prophylaxis: Lovenox 40mg bid. * Charges/Coding Visit Charges Inpatient E&M: 84544 Subs Hosp L2
[2021-07-30] MEDS: Paroxetine 20 MG Tablet 40 MG PO (20:53)
[2021-07-31] VITALS (15 sets, daily range): BP systolic 103–132; BP diastolic 44–59; PULSE 64–81; RESP 14–24; TEMP 36.3–36.8; O2SAT 91–98
[2021-07-31] MEDS: Levothyroxine 75 MCG Tablet PO (05:49)
--- NOTE | 2021-07-31 06:29 | PCM.PN.INT ---
Assessment & Plan Assessment/Plan (1) Hypoxia: (2) Pneumonia due to 2019 novel coronavirus: PLAN: RECOMMENDATIONS: 1. Continue to wean supplemental oxygen to maintain saturations at or above 90%. 2. Continue Decadron, twice daily Lovenox and baricitinib as ordered. 3. Encourage incentive spirometer use and mobilize patient as tolerated. 4. Diuretics, as needed, to maintain euvolemic state. 5. Given improving oxygenation status, will sign off. Please call with any additional questions. IMPRESSIONS: 1. Acute hypoxemic respiratory failure secondary to COVID-19 pneumonia The patient presented to the hospital with worsening dyspnea, cough and hypoxemia. She was outside of the window for treatment with remdesivir. The patient was subsequently placed on Decadron, twice daily Lovenox and baricitinib, following evaluation by infectious diseases. The patient's respiratory status has improved and she has now on nasal cannula, with a goal to maintain saturations at or above 90%. Diuretics can be utilized as needed to maintain euvolemic state. Encourage incentive spirometer use and mobilize patient as tolerated. 2. Advanced age/hypothyroidism/anxiety/GERD Complicates care, management, recovery and prognosis. Continue home medications as indicated. This note was generated with numberFire dictation software. It may contain incorrect words, spelling, and punctuation that were not noted in checking the note before signing. Subjective Subjective The patient was seen and examined at the bedside this morning. Events from the last 24 hours have been reviewed. The patient is currently afebrile, hemodynamically stable and maintaining appropriate oxygen saturations on nasal cannula supplemental oxygen at 8 L/min. The patient remains on Decadron, baricitinib and Lovenox. She is currently documented to be overall net +2.1 L for the hospitalization. Objective Data Objective Data The patient's most recent lab work, culture data and imaging studies have all been personally reviewed. Vital Signs: Vital Signs Temp Pulse Resp BP Pulse Ox 97.4 F L 64 14 132/59 H 95 07/31/21 03:15 07/31/21 03:59 07/31/21 03:15 07/31/21 03:15 07/31/21 03:15 Oxygen Flow Rate (L/min) 8 Oxygen Delivery Method Nasal Cannula Weight: 65.2 kg Body Mass Index (BMI) 28.0 Intake & Output: Intake and Output for Last 24 Hours 11/04/21 11/05/21 11/06/21 23:59 23:59 23:59 Intake Total 480 / 480 960 / 960 Output Total 650 / 650 300 / 300 Balance -170 / -170 660 / 660 Lab / Micro Data Attestation: I reviewed the patient's lab results. Result Diagrams: 07/30/21 05:54 07/30/21 05:54 Labs: Laboratory Results - last 24 hr 07/30/21 05:54: WBC 4.7, RBC 4.34, Hgb 11.1 L, Hct 34.0 L, MCV 78.3 L, MCH 25.6 L, MCHC 32.6, RDW Std Deviation 44.2 H, RDW Coeff of Cecille 15.5 H, Plt Count 537 H, MPV 9.3 07/30/21 05:54: Sodium 132 L, Potassium 3.9, Chloride 95 L, Carbon Dioxide 30.0, Anion Gap 7, BUN 26 H, Creatinine 0.71, Estim Creat Clear Calc 31.15, Est GFR (MDRD) Af Amer 101, Est GFR (MDRD) Non-Af 84, BUN/Creatinine Ratio 36.6 H, Glucose 94, Calcium 9.0, Total Bilirubin 0.50, AST 25, ALT 29, Alkaline Phosphatase 85, Total Protein 7.8, Albumin 2.4 L, Globulin 5.4 H, Albumin/Globulin Ratio 0.4 L Physical Exam Const alert and no apparent distress General Appearance: cooperative HEENT normocephalic, head/scalp atraumatic and moist oral mucous membranes Eyes PERRL and EOMs intact bilaterally Neck supple General: trachea midline Chest inspection of chest normal Resp normal respiratory effort and no use of accessory muscles Auscultation: diminished lung sounds Cardio regular rate and regular rhythm GI normal to inspection, nondistended, normoactive bowel sounds Extremity no clubbing, cyanosis or edema Skin no rashes or lesions noted Neuro CN's II-XII intact bilaterally, moves all extremities and no focal motor deficits Psych cooperative Charges/Coding Visit Charges Inpatient E&M: 31132 Subs Hosp L2
[2021-07-31 07:53] LABS: Hematocrit 33.5 % (37-47); Hemoglobin 10.6 g/dL (12.0-15.0); Mean Corp Hgb Conc 31.6 g/dL (32-36); Mean Corpuscular Hgb 25.1 pg (27.0-32.0); Mean Corpuscular Volume 79.4 fL (81-99); Mean Platelet Vol. 9.3 fl (6.2-12.0); Platelet Count 564 K/mm3 (150-450); RBC Distribution Width CV 15.3 % (11.6-14.6); RBC Distribution Width SD 43.6 fl (35.1-43.9); Red Blood Count 4.22 M/mm3 (4.2-5.4); White Blood Count 7.3 K/mm3 (4.4-11.0)
[2021-07-31 08:28] LABS: ALB/GLOB Ratio 0.5 RATIO (0.9-2.4); AST(SGOT) 25 U/L (15-37); Alanine Aminotransfer ALT/SGPT 31 U/L (13-56); Albumin, Serum 2.4 g/dL (3.2-5.0); Alkaline Phosphatase 80 U/L (45-117); Anion Gap 7 (5-15); BUN 23 mg/dL (7-18); BUN/Creat Ratio 33.2 RATIO (10-20); Calcium,Total 9.5 mg/dL (8.5-10.1); Chloride 98 mmol/L (98-107); Creatinine, Serum 0.69 mg/dL (0.55-1.02); EST Glomerular Filtration Rate 86 mL/min (>60); Est Glom Filt Rate - Afr Amer 104 mL/min (>60); Estimated Creatinine Clearance 31.15 ml/min; Globulin 5.3 g/dL (2.2-4.2); Glucose 82 mg/dL (74-106); Potassium 4.1 mmol/L (3.5-5.1); Protein, Total 7.7 g/dL (6.4-8.2); Sodium Level 134 mmol/L (136-145)
[2021-07-31] MEDS: Enoxaparin 40 MG/0.4 ML Syringe SC ×2 (09:19→21:23)
[2021-07-31] MEDS: dexAMETHasone 2 MG TABLET 6 MG PO (09:19)
[2021-07-31] MEDS: guaiFENesin 600 MG Tablet PO ×2 (09:19→21:23)
--- NOTE | 2021-07-31 09:49 | NURSING ---
Upon assessment of vital signs, O2 was 79% on 8 L. Slowly increased to 15 L w/ improvements in SpO2 to 89-91%. RT notified, airvo put on.
--- NOTE | 2021-07-31 11:32 | PN.HOSP_ITS ---
Subjective Subjective Patient seen and examined. She had no active complaints. She remains on air Vo. Review of systems otherwise negative. She is in cumulative positive balance by 2.18 L. Hemoglobin is 10.6 today. Objective Data Objective Data Vital Signs: Vital Signs Temp Pulse Resp BP Pulse Ox 97.7 F L 67 18 111/47 L 97 07/31/21 11:02 07/31/21 11:02 07/31/21 11:02 07/31/21 11:02 07/31/21 11:02 Oxygen Flow Rate (L/min) 45 Oxygen Delivery Method Airvo Weight: 143 lb 11.862 oz Body Mass Index (BMI) 28.0 Intake & Output: Intake and Output for Last 24 Hours 07/29/21 07/30/21 07/31/21 23:59 23:59 23:59 Intake Total 480 / 480 960 / 960 Output Total 650 / 650 300 / 300 Balance -170 / -170 660 / 660 Lab / Micro Data Result Diagrams: 07/31/21 07:26 07/31/21 07:26 Labs: Laboratory Results - last 24 hr 07/31/21 07:26: WBC 7.3, RBC 4.22, Hgb 10.6 L, Hct 33.5 L, MCV 79.4 L, MCH 25.1 L, MCHC 31.6 L, RDW Std Deviation 43.6, RDW Coeff of Cecille 15.3 H, Plt Count 564 H , MPV 9.3 07/31/21 07:26: Sodium 134 L, Potassium 4.1, Chloride 98, Carbon Dioxide 29.0, Anion Gap 7, BUN 23 H, Creatinine 0.69, Estim Creat Clear Calc 31.15, Est GFR (MDRD) Af Amer 104, Est GFR (MDRD) Non-Af 86, BUN/Creatinine Ratio 33.2 H, Glucose 82, Calcium 9.5, Total Bilirubin 0.40, AST 25, ALT 31, Alkaline Phosphatase 80, Total Protein 7.7, Albumin 2.4 L, Globulin 5.3 H, Albumin/Globulin Ratio 0.5 L Physical Exam Const alert, oriented x3 and no apparent distress Exam Limitations: no limitations HEENT head/scalp atraumatic and moist oral mucous membranes Eyes PERRL, EOMs intact bilaterally and conjunctivae normal Neck no lymphadenopathy and supple Resp Resp Narrative: diminished breath sounds bibasally, no wheezes, no crackles. remains on AirVo Cardio regular rate, regular rhythm, S1 normal heart sound, S2 normal heart sound and no murmurs GI normal to inspection, nondistended, normoactive bowel sounds, soft to palpation, non-tender and non-distended Extremity normal to inspection, full ROM and no clubbing, cyanosis or edema Skin no rashes or lesions noted Neuro oriented x3, CN's II-XII intact bilaterally and moves all extremities Sensorium / Orientation: awake and alert Psych affect normal Assessment & Plan Assessment/Plan (1) Hypoxia: (2) Pneumonia due to 2019 novel coronavirus: PLAN: #Acute hypoxic respiratory failure due to COVID 19 pneumonia * still on AirVo, feeling better today. * out of the window for remdesivir. * on baricitinib and decadron * PUlmonology and ID are on board. * Breathing treatments with bronchodilators. Titrate oxygen to maintain saturation above 90%. * Will give Lasix as needed to help with diuresis. * #Hypothyroidism: On Synthroid DVT prophylaxis: Lovenox 40mg bid. * Charges/Coding Visit Charges Inpatient E&M: 01769 Subs Hosp L2
[2021-07-31] MEDS: Paroxetine 20 MG Tablet 40 MG PO (21:23)
[2021-07-31] MEDS: 0.9% Saline Lock 10 ML Syringe IV (21:24)
[2021-08-01] VITALS (14 sets, daily range): BP systolic 117–134; BP diastolic 44–55; PULSE 61–81; RESP 18–22; TEMP 36.3–36.6; O2SAT 90–98
[2021-08-01] MEDS: Levothyroxine 75 MCG Tablet PO (02:53)
--- NOTE | 2021-08-01 03:15 | PCS.PANDOC ---
PANDEMIC DOCUMENTATION INITIATED: Date: 05/10/2021 Time: 190
[2021-08-01] MEDS: guaiFENesin 600 MG Tablet PO ×2 (09:26→20:28)
[2021-08-01] MEDS: Enoxaparin 40 MG/0.4 ML Syringe SC ×2 (09:26→20:29)
[2021-08-01] MEDS: dexAMETHasone 2 MG TABLET 6 MG PO (09:26)
--- NOTE | 2021-08-01 09:56 | PN.HOSP_ITS ---
Subjective Subjective Patient seen and examined. She had no active complaints today. She remains on AirVo. She has remained hemodynamically stable otherwise. Objective Data Objective Data Vital Signs: Vital Signs Temp Pulse Resp BP Pulse Ox 97.4 F L 71 20 H 117/46 L 93 08/01/21 08:50 08/01/21 08:50 08/01/21 08:50 08/01/21 08:50 08/01/21 08:50 Oxygen Flow Rate (L/min) 45 Oxygen Delivery Method Airvo Weight: 143 lb 11.862 oz Body Mass Index (BMI) 28.0 Intake & Output: Intake and Output for Last 24 Hours 07/30/21 07/31/21 08/01/21 23:59 23:59 22:59 Intake Total 960 / 960 480 / 480 Output Total 300 / 300 Balance 660 / 660 480 / 480 Lab / Micro Data Result Diagrams: 07/31/21 07:26 07/31/21 07:26 Physical Exam Const alert, oriented x3 and no apparent distress Exam Limitations: no limitations HEENT head/scalp atraumatic and moist oral mucous membranes Head and Scalp: normocephalic Eyes PERRL, EOMs intact bilaterally and conjunctivae normal Neck no lymphadenopathy and supple Resp Resp Narrative: diminished breath sounds bibasally, no wheezes, no crackles. still remains on AirVo at FiO2 of 45% and oxygen flow rate of 45L. Cardio regular rate, regular rhythm, S1 normal heart sound, S2 normal heart sound and no murmurs GI normal to inspection, nondistended, normoactive bowel sounds, soft to palpation, non-tender and non-distended Extremity normal to inspection, full ROM and no clubbing, cyanosis or edema Peripheral Pulses: Yes pulses 2+ throughout Skin no rashes or lesions noted Neuro oriented x3, CN's II-XII intact bilaterally and moves all extremities Sensorium / Orientation: awake and alert Psych affect normal Assessment & Plan Assessment/Plan (1) Hypoxia: (2) Pneumonia due to 2019 novel coronavirus: PLAN: #Acute hypoxic respiratory failure due to COVID 19 pneumonia * still on AirVo * out of the window for remdesivir. * on baricitinib and decadron * PUlmonology and ID are on board. * Breathing treatments with bronchodilators. Titrate oxygen to maintain saturation above 90%. * IV lasix prn. * #Hypothyroidism: On Synthroid DVT prophylaxis: Lovenox 40mg bid. * Charges/Coding Visit Charges Inpatient E&M: 61911 Subs Hosp L3
[2021-08-01] MEDS: Paroxetine 20 MG Tablet 40 MG PO (20:28)
[2021-08-01] MEDS: Acetaminophen 325 MG Tablet 650 MG PO (20:42)
[2021-08-02] VITALS (9 sets, daily range): BP systolic 113–164; BP diastolic 41–78; PULSE 63–89; RESP 15–18; TEMP 35.7–36.8; O2SAT 92–98
[2021-08-02] MEDS: Levothyroxine 75 MCG Tablet PO (05:32)
[2021-08-02 05:35] LABS: Hematocrit 33.9 % (37-47); Hemoglobin 10.4 g/dL (12.0-15.0); Mean Corp Hgb Conc 30.7 g/dL (32-36); Mean Corpuscular Hgb 25.2 pg (27.0-32.0); Mean Corpuscular Volume 82.3 fL (81-99); Mean Platelet Vol. 9.4 fl (6.2-12.0); POSITIVE COUNT YES; POSITIVE MORPHOLOGY YES; Platelet Count 577 K/mm3 (150-450); RBC Distribution Width CV 15.2 % (11.6-14.6); RBC Distribution Width SD 45.9 fl (35.1-43.9); Red Blood Count 4.12 M/mm3 (4.2-5.4); White Blood Count 7.2 K/mm3 (4.4-11.0)
[2021-08-02 05:43] LABS: Differential Indicated MANUAL DIFF
[2021-08-02 06:00] LABS: Anion Gap 8 (5-15); BUN 20 mg/dL (7-18); BUN/Creat Ratio 27.6 RATIO (10-20); Calcium,Total 9.3 mg/dL (8.5-10.1); Chloride 98 mmol/L (98-107); Creatinine, Serum 0.72 mg/dL (0.55-1.02); EST Glomerular Filtration Rate 82 mL/min (>60); Est Glom Filt Rate - Afr Amer 99 mL/min (>60); Estimated Creatinine Clearance 31.15 ml/min; Glucose 151 mg/dL (74-106); Potassium 3.2 mmol/L (3.5-5.1); Sodium Level 133 mmol/L (136-145)
[2021-08-02 07:21] LABS: Absolute Lymphocyte Count 1.07 X10^3/uL (0.83-4.51); Absolute Neutrophil Count 5.7 X10^3/uL (2.0-7.7); Metamyelocyte 2 % (0-1); Neutrophil-Segmented 79 % (47-70)
[2021-08-02 07:22] LABS: Anisocytosis 1+; Lymphocyte 15 % (19-41); Monocyte 2 % (0-10); Myelocyte 2 % (0-0); Platelet Estimate MOD INC (ADEQ); Red Cell Morphology NORM C+C NORMAL (NORM C&C)
[2021-08-02] MEDS: guaiFENesin 600 MG Tablet PO ×2 (09:34→21:42)
[2021-08-02] MEDS: dexAMETHasone 2 MG TABLET 6 MG PO (09:34)
[2021-08-02] MEDS: Enoxaparin 40 MG/0.4 ML Syringe SC ×2 (09:34→21:42)
[2021-08-02] MEDS: Acetaminophen 325 MG Tablet 650 MG PO ×2 (09:35→21:46)
[2021-08-02] MEDS: INHALER, ASSIST DEVICES 1 EACH SPACER INHALATION (12:47)
[2021-08-02] MEDS: Albuterol Sulfate 8 gm Inhaler (60 puffs) 2 PUFF INHALATION ×2 (12:47→18:59)
--- NOTE | 2021-08-02 16:57 | PN.HOSP_ITS ---
Subjective Subjective Follow-up on acute respiratory failure/Acute COVID-19 pneumonia: Patient was seen and examined. She remains on 8 L of oxygen. Denied any new complaint Objective Data Objective Data Vital Signs: Vital Signs Temp Pulse Resp BP Pulse Ox 98.3 F 88 15 164/68 H 98 08/02/21 16:32 08/02/21 16:32 08/02/21 16:32 08/02/21 16:32 08/02/21 16:32 Oxygen Flow Rate (L/min) 8 Oxygen Delivery Method Nasal Cannula Weight: 65.2 kg Body Mass Index (BMI) 28.0 Intake & Output: Intake and Output for Last 24 Hours 08/01/21 08/01/21 08/02/21 00:59 23:59 23:59 Intake Total 520 / 520 Balance 520 / 520 Lab / Micro Data Result Diagrams: 08/02/21 04:30 08/02/21 04:30 Labs: Laboratory Results - last 24 hr 08/02/21 04:30: WBC 7.2, RBC 4.12 L, Hgb 10.4 L, Hct 33.9 L, MCV 82.3, MCH 25.2 L, MCHC 30.7 L, RDW Std Deviation 45.9 H, RDW Coeff of Cecille 15.2 H, Plt Count 577 H, MPV 9.4, Neut % (Auto) Not Reportable, Absolute Neuts (auto) 5.7, Absolute Lymphs (auto) 1.07, Neutrophils % (Manual) 79 H, Lymphocytes % (Manual) 15 L, Monocytes % (Manual) 2, Metamyelocytes % 2 H, Myelocytes % 2 H, Diff Path Review May foll, Platelet Estimate MOD INC, RBC Morphology NORM C+C, Anisocytosis 1+ 08/02/21 04:30: Sodium 133 L, Potassium 3.2 L, Chloride 98, Carbon Dioxide 27.0, Anion Gap 8, BUN 20 H, Creatinine 0.72, Estim Creat Clear Calc 31.15, Est GFR ( MDRD) Af Amer 99, Est GFR (MDRD) Non-Af 82, BUN/Creatinine Ratio 27.6 H, Glucose 151 H, Calcium 9.3 Physical Exam Narrative Physical exam: General: Alert, Oriented x3, Cooperative, on 8 L of oxygen HEENT: Atraumatic Oral: Moist Mucosa Neck: Supple Lungs: Clear to auscultation Cardiovascular: HS I+II, regular, no murmurs Abdomen: Bowel Sounds Present, Soft, Non Tender Extremities: No edema Assessment & Plan Assessment/Plan (1) Hypoxia: (2) Pneumonia due to 2019 novel coronavirus: PLAN: 1. Acute hypoxic respiratory failure secondary to acute COVID 19 pneumonia Patient is currently on 8 L of oxygen Continue on baricitinib and Decadron Pulmonology and ID following 2. Hypothyroidism, continue on Synthroid Charges/Coding Visit Charges Inpatient E&M: 20443 Subs Hosp L2
[2021-08-02] MEDS: Paroxetine 20 MG Tablet 40 MG PO (21:42)
[2021-08-03] VITALS (12 sets, daily range): BP systolic 130–172; BP diastolic 61–90; PULSE 72–84; RESP 16–19; TEMP 36.3–36.8; O2SAT 93–99
[2021-08-03] MEDS: Levothyroxine 75 MCG Tablet PO (06:06)
[2021-08-03] MEDS: INHALER, ASSIST DEVICES 1 EACH SPACER INHALATION (06:06)
[2021-08-03 07:12] LABS: Hematocrit 31.4 % (37-47); Hemoglobin 10.1 g/dL (12.0-15.0); Mean Corp Hgb Conc 32.2 g/dL (32-36); Mean Corpuscular Hgb 25.9 pg (27.0-32.0); Mean Corpuscular Volume 80.5 fL (81-99); Mean Platelet Vol. 9.4 fl (6.2-12.0); POSITIVE COUNT YES; POSITIVE MORPHOLOGY YES; Platelet Count 531 K/mm3 (150-450); RBC Distribution Width CV 15.7 % (11.6-14.6); White Blood Count 6.9 K/mm3 (4.4-11.0)
[2021-08-03 07:16] LABS: Differential Indicated MANUAL DIFF
[2021-08-03 07:43] LABS: Anion Gap 7 (5-15); BUN 21 mg/dL (7-18); BUN/Creat Ratio 30.2 RATIO (10-20); Calcium,Total 9.3 mg/dL (8.5-10.1); Chloride 100 mmol/L (98-107); EST Glomerular Filtration Rate 86 mL/min (>60); Est Glom Filt Rate - Afr Amer 104 mL/min (>60); Estimated Creatinine Clearance 31.15 ml/min; Glucose 86 mg/dL (74-106); Lymphocyte 9 % (19-41); Metamyelocyte 3 % (0-1); Monocyte 15 % (0-10); Myelocyte 2 % (0-0); Neutrophil-Segmented 71 % (47-70); Platelet Estimate ADEQUATE (ADEQ); Potassium 4.2 mmol/L (3.5-5.1); Sodium Level 136 mmol/L (136-145); Total Cells Counted 100 (MANUAL DIFF)
[2021-08-03 07:44] LABS: Red Cell Morphology NORM C+C NORMAL (NORM C&C)
[2021-08-03 07:46] LABS: Absolute Lymphocyte Count 0.62 X10^3/uL (0.83-4.51); Absolute Neutrophil Count 4.9 X10^3/uL (2.0-7.7)
[2021-08-03] MEDS: Albuterol Sulfate 8 gm Inhaler (60 puffs) 2 PUFF INHALATION (08:11)
[2021-08-03] MEDS: guaiFENesin 600 MG Tablet PO ×2 (08:12→21:19)
[2021-08-03] MEDS: 0.9% Saline Lock 10 ML Syringe IV (08:12)
[2021-08-03] MEDS: Furosemide 40 MG/4 ML Vial IV (08:12)
[2021-08-03] MEDS: dexAMETHasone 2 MG TABLET 6 MG PO (08:13)
[2021-08-03] MEDS: Enoxaparin 40 MG/0.4 ML Syringe SC ×2 (08:13→21:19)
[2021-08-03] MEDS: Acetaminophen 325 MG Tablet 650 MG PO ×3 (08:14→21:24)
[2021-08-03 14:21] LABS: Pathologist Review Reviewed
--- NOTE | 2021-08-03 15:15 | PCM.PN.HOSP ---
Subjective Subjective Follow-up on acute respiratory failure/Acute COVID-19 pneumonia: Patient was seen and examined. Out of Covid isolation. Remains on 8 L of oxygen Objective Data Objective Data Vital Signs: Vital Signs Temp Pulse Resp BP Pulse Ox 98.3 F 84 16 130/63 H 97 08/03/21 14:05 08/03/21 14:05 08/03/21 14:05 08/03/21 14:05 08/03/21 14:05 Oxygen Flow Rate (L/min) 8 Oxygen Delivery Method High Flow Weight: 65.2 kg Body Mass Index (BMI) 28.0 Intake & Output: Intake and Output for Last 24 Hours 08/01/21 08/02/21 08/03/21 23:59 23:59 23:59 Intake Total 1040 / 1280 880 / 880 Balance 1040 / 1280 880 / 880 Lab / Micro Data Result Diagrams: 08/03/21 05:50 08/03/21 05:50 Labs: Laboratory Results - last 24 hr 08/02/21 04:30: Diff Path Review Reviewed 08/03/21 05:50: WBC 6.9, RBC 3.90 L, Hgb 10.1 L, Hct 31.4 L, MCV 80.5 L, MCH 25.9 L, MCHC 32.2, RDW Std Deviation 46.0 H, RDW Coeff of Cecille 15.7 H, Plt Count 531 H, MPV 9.4, Neut % (Auto) Not Reportable, Absolute Neuts (auto) 4.9, Absolute Lymphs (auto) 0.62 L, Total Counted 100, Neutrophils % (Manual) 71 H, Lymphocytes % (Manual) 9 L, Monocytes % (Manual) 15 H, Metamyelocytes % 3 H, Myelocytes % 2 H, Diff Path Review May foll, Platelet Estimate ADEQUATE, RBC Morphology NORM C+C 08/03/21 05:50: Sodium 136, Potassium 4.2, Chloride 100, Carbon Dioxide 29.0, Anion Gap 7, BUN 21 H, Creatinine 0.70, Estim Creat Clear Calc 31.15, Est GFR (MDRD) Af Amer 104, Est GFR (MDRD) Non-Af 86, BUN/Creatinine Ratio 30.2 H, Glucose 86, Calcium 9.3 Physical Exam Narrative Physical exam: General: Alert, Oriented x3, Cooperative, on 8 L of oxygen HEENT: Atraumatic Oral: Moist Mucosa Neck: Supple Lungs: Clear to auscultation Cardiovascular: HS I+II, regular, no murmurs Abdomen: Bowel Sounds Present, Soft, Non Tender Extremities: No edema Assessment & Plan Assessment/Plan (1) Hypoxia: (2) Pneumonia due to 2019 novel coronavirus: PLAN: 1. Acute hypoxic respiratory failure secondary to acute COVID 19 pneumonia Patient is currently on 8 L of oxygen Continue on baricitinib and Decadron(last day for Decadron is tomorrow) Pulmonology and ID following 2. Hypothyroidism, continue on Synthroid Charges/Coding Visit Charges Inpatient E&M: 05351 Subs Hosp L2
[2021-08-03 15:20] LABS: Pathologist Review Reviewed
[2021-08-03] MEDS: Paroxetine 20 MG Tablet 40 MG PO (21:19)
[2021-08-04] VITALS (13 sets, daily range): BP systolic 128–163; BP diastolic 60–85; PULSE 71–88; RESP 16–18; TEMP 36.4–37.1; O2SAT 92–99
[2021-08-04] MEDS: Levothyroxine 75 MCG Tablet PO (05:52)
[2021-08-04] MEDS: Acetaminophen 325 MG Tablet 650 MG PO (05:56)
[2021-08-04] MEDS: Enoxaparin 40 MG/0.4 ML Syringe SC ×2 (08:05→21:45)
[2021-08-04] MEDS: guaiFENesin 600 MG Tablet PO ×2 (08:05→21:45)
[2021-08-04] MEDS: dexAMETHasone 2 MG TABLET 6 MG PO (08:05)
--- NOTE | 2021-08-04 16:17 | NURSING ---
Assisted patient to bathroom. patient steady on her feet. pt back into bed. denies further needs at this time.
--- NOTE | 2021-08-04 18:48 | PCM.PN.HOSP ---
Subjective Subjective Follow-up on acute respiratory failure/Acute COVID-19 pneumonia: Patient was seen and examined. Now on 4L oxygen. Denies any new complains Objective Data Objective Data Vital Signs: Vital Signs Temp Pulse Resp BP Pulse Ox 98.1 F 85 16 146/60 H 96 08/04/21 14:00 08/04/21 15:00 08/04/21 14:00 08/04/21 14:00 08/04/21 16:28 Oxygen Flow Rate (L/min) 3 Oxygen Delivery Method Nasal Cannula Weight: 65.2 kg Body Mass Index (BMI) 28.0 Intake & Output: Intake and Output for Last 24 Hours 08/02/21 08/03/21 08/04/21 23:59 23:59 23:59 Intake Total 1040 / 1280 1120 / 1240 1160 / 1160 Balance 1040 / 1280 1120 / 1240 1160 / 1160 Lab / Micro Data Result Diagrams: 08/03/21 05:50 08/03/21 05:50 Physical Exam Narrative Physical exam: General: Alert, Oriented x3, Cooperative, on 4 L of oxygen HEENT: Atraumatic Oral: Moist Mucosa Neck: Supple Lungs: Clear to auscultation Cardiovascular: HS I+II, regular, no murmurs Abdomen: Bowel Sounds Present, Soft, Non Tender Extremities: No edema Assessment & Plan Assessment/Plan (1) Hypoxia: (2) Pneumonia due to 2019 novel coronavirus: PLAN: 1. Acute hypoxic respiratory failure secondary to acute COVID 19 pneumonia Patient is currently on 4 L of oxygen Continue on baricitinib Pulmonology and ID following 2. Hypothyroidism, continue on Synthroid Possible DC in am if she remains below 6L on exertion Charges/Coding Visit Charges Inpatient E&M: 44910 Subs Hosp L2
[2021-08-04] MEDS: Paroxetine 20 MG Tablet 40 MG PO (21:45)
[2021-08-05] VITALS (12 sets, daily range): BP systolic 87–152; BP diastolic 47–81; PULSE 70–93; RESP 15–18; TEMP 36.5–37.1; O2SAT 88–97
[2021-08-05] MEDS: Levothyroxine 75 MCG Tablet PO (05:34)
--- NOTE | 2021-08-05 08:14 | NURSING ---
with ortho stats felt slight dizzy cloudy
--- NOTE | 2021-08-05 08:18 | PCM.DC ---
Discharge Instructions Diet Discharge Diet: No restrictions Activity Discharge Activity: Return to Normal Activity Follow Up Care Test Results: Test results from this visit will be discussed in further detail at your follow-up appointment, if applicable. Discharge Plan Admission Admit Date/Time: 07/26/21 02:06 Primary Reason for Your Visit: Acute COVID-19 pneumonia Attending Provider: Ana Maria Drake Primary Care Provider: Care Physician,No Primary Consulting Providers: Henri Quarles ; Lisandro Ibarra ; Luigi Spencer ; Cecilia Hitchcock [employer] Instructions Additional Instructions / Restrictions: Continue to keep yourself hydrated. Follow-up with your primary care doctor within 1 to 2 weeks. Discharge Orders/Prescriptions Prescriptions: Continued albuterol sulfate [Ventolin HFA] 90 mcg/actuation HFA aerosol inhaler 1 - 2 puff inhalation Q4H PRN PRN (Reason: Wheezing) Qty: 1 RF: 0 paroxetine HCl 40 mg tablet 40 mg PO DAILY RF: 0 buspirone 5 mg tablet 5 mg PO QHS RF: 0 levothyroxine 75 mcg tablet 75 mcg PO DAILY RF: 0 pantoprazole 40 mg tablet,delayed release (DR/EC) 40 mg PO PRN PRN (Reason: Acid Reflux) RF: 0 Discontinued dexamethasone [Decadron] 6 mg tablet 6 mg PO DAILY Qty: 10 RF: 0 azithromycin [Zithromax Z-Marito] 250 mg tablet See Rx Instructions .ROUTE .COMPLEX Qty: 6 RF: 0 Referrals / Follow Up: Care Physician,No Primary [Primary Care Provider] - Disposition Disposition (needs filled in before D/C Order can be placed): Home, Self Care
[2021-08-05] MEDS: guaiFENesin 600 MG Tablet PO ×2 (08:21→20:39)
[2021-08-05] MEDS: Albuterol Sulfate 8 gm Inhaler (60 puffs) 2 PUFF INHALATION (08:22)
--- NOTE | 2021-08-05 08:22 | DS.PCM_ITS ---
Providers Date of Admission: 07/26/21 Date of Discharge: 08/05/21 Primary Care Physician: Anny Primary Care Phys Consultations 07/26/21 12:24 Consult: Supervisor [employer] / Pulmonary Medicine Routine Consulting Provider: Pulmonary Medicine coy [place] Reason for Consult: acute hypoxic respiratory failure due to COVID 19 pneumonia EMERGENT Consult: No Notified: Yes Date Notified: 07/26/21 Time Notified: 12:24 Method of Notification: Text 07/26/21 13:38 Consult: Infectious Disease Routine Consulting Provider: Henri Quarles Reason for Consult: acute hypoxic respiratory failure due to covid 19 pneumonia EMERGENT Consult: No Notified: Yes Date Notified: 07/26/21 Time Notified: 13:38 Method of Notification: Verbal Reason For Visit: SARS COV-2 Diagnosis Discharge Diagnosis (1) Hypoxia: Status: Acute Code(s): R09.02 - Hypoxemia (2) Pneumonia due to 2019 novel coronavirus: Status: Acute Code(s): U07.1 - COVID-19; J12.82 - Pneumonia due to coronavirus disease 2019 Medications at Discharge Home Medications albuterol sulfate [Ventolin HFA] 1 - 2 puff INHALATION Q4H PRN PRN #1 device 07/22/21 buspirone 5 mg PO QHS 07/26/21 levothyroxine 75 mcg PO DAILY 07/26/21 pantoprazole 40 mg PO PRN PRN 07/26/21 paroxetine HCl 40 mg PO DAILY 07/26/21 Weight / BMI Weight Weight: 65.2 kg Body Mass Index (BMI) 28.0 ABG / Lab / Microbiology Data Result Diagrams: 08/03/21 05:50 08/03/21 05:50 D/C Instructions Discharge Diet: No restrictions Discharge Plan Admission Admit Date/Time: 07/26/21 02:06 Primary Reason for Your Visit: Acute COVID-19 pneumonia Attending Provider: Ana Maria Drake Primary Care Provider: Care Physician,Anny Primary Consulting Providers: Henri Quarles ; Lisandro Ibarra ; Luigi Spencer ; Cecilia Hitchcock [employer]DER Instructions Additional Instructions / Restrictions: Continue to keep yourself hydrated. Follow-up with your primary care doctor gregg robertson 1 to 2 weeks. Discharge Orders/Prescriptions Prescriptions: Continued albuterol sulfate [Ventolin HFA] 90 mcg/actuation HFA aerosol inhaler 1 - 2 puff inhalation Q4H PRN PRN (Reason: Wheezing) Qty: 1 RF: 0 paroxetine HCl 40 mg tablet 40 mg PO DAILY RF: 0 buspirone 5 mg tablet 5 mg PO QHS RF: 0 levothyroxine 75 mcg tablet 75 mcg PO DAILY RF: 0 pantoprazole 40 mg tablet,delayed release (DR/EC) 40 mg PO PRN PRN (Reason: Acid Reflux) RF: 0 Discontinued dexamethasone [Decadron] 6 mg tablet 6 mg PO DAILY Qty: 10 RF: 0 azithromycin [Zithromax Z-Marito] 250 mg tablet See Rx Instructions .ROUTE .COMPLEX Qty: 6 RF: 0 Referrals / Follow Up: Care Physician,No Primary [Primary Care Provider] - Disposition Disposition (needs filled in before D/C Order can be placed): Home, Self Care
--- NOTE | 2021-08-05 09:10 | EKG12_ITS ---
Test Reason : Blood Pressure : / mmHG Vent. Rate : 084 BPM Atrial Rate : 084 BPM P-R Int : 134 ms QRS Dur : 096 ms QT Int : 398 ms P-R-T Axes : 072 013 046 degrees QTc Int : 470 ms Normal sinus rhythm Incomplete right bundle branch block Confirmed by ARIN ALEXANDER, ROMIE ([id number]), geological drafter BENY COX ([id number]) on 08/09/2021 10:43:52 AM Referred By: Confirmed By:ROMIE HINKLE MD
--- NOTE | 2021-08-05 09:28 | PHA.DC.MR ---
Pharmacy Service has performed discharge medication reconciliation for this patient. Home Medications albuterol sulfate [Ventolin HFA] 1 - 2 puff INHALATION Q4H PRN PRN #1 device 07/22/21 buspirone 5 mg PO QHS 07/26/21 levothyroxine 75 mcg PO DAILY 07/26/21 pantoprazole 40 mg PO PRN PRN 07/26/21 paroxetine HCl 40 mg PO DAILY 07/26/21 guaifenesin [Mucus Relief ER] 600 mg PO BID 7 Days #14 tab 08/05/21 The patient's discharge medication list was reviewed for discrepancies and discrepancies were resolved.
--- NOTE | 2021-08-05 11:28 | CASEMGMT ---
Pt had previously been set up with 2L continuous home oxygen thru [facility]. Pt tested today and is fine on room air but does need 3L nc w/ exertion. New order faxed to [facility]. This RN CM to room, pt updated, voices understanding. Pt declines need for any further therapy at discharge and states her daughter is able to bring portable tank in for discharge. Pt voices no further questions/concerns/needs. SStaten EMILY CM
[2021-08-05] MEDS: Enoxaparin 40 MG/0.4 ML Syringe SC ×2 (12:24→22:26)
[2021-08-05] MEDS: Loperamide 2 MG Capsule 4 MG PO (12:24)
--- NOTE | 2021-08-05 14:20 | PCM.PN.HOSP ---
Subjective Subjective Follow-up on acute respiratory failure/Acute COVID-19 pneumonia: Patient was seen and examined. She is on 3 L of oxygen. Patient complains of dizziness on standing. Her orthostatic vitals were positive. She received fluid boluses but was still orthostatic positive. Discharge was held Objective Data Objective Data Vital Signs: Vital Signs Temp Pulse Resp BP Pulse Ox 97.9 F 93 15 87/52 L 91 08/05/21 08:07 08/05/21 12:08 08/05/21 08:07 08/05/21 12:08 08/05/21 08:15 Oxygen Flow Rate (L/min) [ 3 AMBULATING with Oxygen #1] Oxygen Flow Rate (L/min) [At 3 REST with Oxygen] Oxygen Flow Rate (L/min) 92 Oxygen Delivery Method Room Air Weight: 65.2 kg Body Mass Index (BMI) 28.0 Intake & Output: Intake and Output for Last 24 Hours 08/03/21 08/04/21 08/05/21 23:59 23:59 23:59 Intake Total 1120 / 1240 1410 / 1410 1820 / 1820 Balance 1120 / 1240 1410 / 1410 1820 / 1820 Lab / Micro Data Result Diagrams: 08/03/21 05:50 08/03/21 05:50 Physical Exam Narrative Physical exam: General: Alert, Oriented x3, Cooperative, on 4 L of oxygen HEENT: Atraumatic Oral: Moist Mucosa Neck: Supple Lungs: Clear to auscultation Cardiovascular: HS I+II, regular, no murmurs Abdomen: Bowel Sounds Present, Soft, Non Tender Extremities: No edema Assessment & Plan Assessment/Plan (1) Hypoxia: (2) Pneumonia due to 2019 novel coronavirus: PLAN: 1. Acute hypoxic respiratory failure secondary to acute COVID 19 pneumonia, Continue on 3 L of oxygen Continue on baricitinib Pulmonology and ID following 2. Episodic hypotension secondary dehydration, status post fluid boluses, recheck in a.m. 3. Hypothyroidism, continue on Synthroid Possible DC in am if she remains below 6L on exertion Charges/Coding Visit Charges Inpatient E&M: 57468 Subs Hosp L2
[2021-08-05] MEDS: Paroxetine 20 MG Tablet 40 MG PO (20:39)
[2021-08-06] VITALS (12 sets, daily range): BP systolic 87–146; BP diastolic 48–76; PULSE 72–92; RESP 16–18; TEMP 36.6–37; O2SAT 88–96
[2021-08-06] MEDS: Levothyroxine 75 MCG Tablet PO (02:56)
--- NOTE | 2021-08-06 08:37 | DS.PCM_ITS ---
Providers Date of Admission: 07/26/21 Date of Discharge: 08/07/21 Primary Care Physician: Anny Primary Care Phys Consultations 07/26/21 12:24 Consult: Armed Security Guard / Pulmonary Medicine Routine Consulting Provider: Pulmonary Medicine coy Porsha Reason for Consult: acute hypoxic respiratory failure due to COVID 19 pneumonia EMERGENT Consult: No Notified: Yes Date Notified: 07/26/21 Time Notified: 12:24 Method of Notification: Text 07/26/21 13:38 Consult: Infectious Disease Routine Consulting Provider: Henri Quarles Reason for Consult: acute hypoxic respiratory failure due to covid 19 pneumonia EMERGENT Consult: No Notified: Yes Date Notified: 07/26/21 Time Notified: 13:38 Method of Notification: Verbal Reason For Visit: SARS COV-2 Diagnosis Discharge Diagnosis (1) Hypoxia: Status: Acute Code(s): R09.02 - Hypoxemia (2) Pneumonia due to 2019 novel coronavirus: Status: Acute Code(s): U07.1 - COVID-19; J12.82 - Pneumonia due to coronavirus disease 2019 (3) Orthostatic hypotension: Status: Resolved Code(s): I95.1 - Orthostatic hypotension Medications at Discharge Home Medications albuterol sulfate [Ventolin HFA] 1 - 2 puff INHALATION Q4H PRN PRN #1 device 07/22/21 buspirone 5 mg PO QHS 07/26/21 levothyroxine 75 mcg PO DAILY 07/26/21 pantoprazole 40 mg PO PRN PRN 07/26/21 paroxetine HCl 40 mg PO DAILY 07/26/21 guaifenesin [Mucus Relief ER] 600 mg PO BID 7 Days #14 tab 08/05/21 Hospital Course Operations None Procedures None Summary of Care Provided Minutes Spent on Discharge: 50 Hospital Course: 81-year-old female past medical history of hypothyroidism, psoriasis who presented with 11-day history of progressive shortness of breath. Patient tested positive for COVID-19 infection 10 days prior to admission. She was seen in the ED and discharged home with oxygen, Decadron and Z-Marito. She presented with progressive shortness of breath despite home oxygen supplement ation. Her oxygen requirements worsened and she was moved to the ICU. She was started on Decadron, and baricitinib. ID and pulmonology were consulted. Patient improved and was transferred to PCU and monitored. She completed her Decadron in the hospital. She continued to improve. Patient was also found to have orthostatic hypotension that required multiple fluid boluses. O2 sat hypotension was resolved at time of discharge. A TSH was normal. Patient was evaluated for home oxygen and required 2L at discharge. Her random cortisol level was still pending at discharge. Patient was discharged home to follow-up with home health. Physical Exam Narrative Physical exam: General: Alert, Oriented x3, Cooperative, on 2 L of oxygen HEENT: Atraumatic Oral: Moist Mucosa Neck: Supple Lungs: Clear to auscultation Cardiovascular: HS I+II, regular, no murmurs Abdomen: Bowel Sounds Present, Soft, Non Tender Extremities: No edema Weight / BMI Weight Weight: 65.2 kg Body Mass Index (BMI) 28.0 ABG / Lab / Microbiology Data Result Diagrams: 08/07/21 05:20 08/07/21 05:20 D/C Instructions Discharge Diet: No restrictions Meaningful Use Info Meaningful Use Diagnoses (Choose all that apply): None applicable Discharge Plan Admission Admit Date/Time: 07/26/21 02:06 Primary Reason for Your Visit: Acute COVID-19 pneumonia Attending Provider: Ana Maria Drake Primary Care Provider: Care Physician,No Primary Consulting Providers: Henri Quarles ; Lisandro Ibarra ; Luigi Spencer ; Cecilia Hitchcock EMERG[employer] SPILL RESPONSE TECHNICIAN Instructions Additional Instructions / Restrictions: Continue to keep yourself hydrated. Follow-up with your primary care doctor within 1 to 2 weeks. Discharge Orders/Prescriptions Prescriptions: New guaifenesin [Mucus Relief ER] 600 mg Tablet Extended Release 12hr 600 mg PO BID 7 Days Qty: 14 RF: 0 Continued albuterol sulfate [Ventolin HFA] 90 mcg/actuation HFA aerosol inhaler 1 - 2 puff inhalation Q4H PRN PRN (Reason: Wheezing) Qty: 1 RF: 0 paroxetine HCl 40 mg tablet 40 mg PO DAILY RF: 0 buspirone 5 mg tablet 5 mg PO QHS RF: 0 levothyroxine 75 mcg tablet 75 mcg PO DAILY RF: 0 pantoprazole 40 mg tablet,delayed release (DR/EC) 40 mg PO PRN PRN (Reason: Acid Reflux) RF: 0 Discontinued dexamethasone [Decadron] 6 mg tablet 6 mg PO DAILY Qty: 10 RF: 0 azithromycin [Zithromax Z-Marito] 250 mg tablet See Rx Instructions .ROUTE .COMPLEX Qty: 6 RF: 0 Referrals / Follow Up: Care Physician,No Primary [Primary Care Provider] - Within 1 Week Disposition Disposition (needs filled in before D/C Order can be placed): Home, Self Care Charges/Coding Visit Charges Inpatient E&M: 63970 Disch Hosp
[2021-08-06] MEDS: guaiFENesin 600 MG Tablet PO ×2 (09:07→20:59)
[2021-08-06] MEDS: Enoxaparin 40 MG/0.4 ML Syringe SC ×2 (09:07→20:59)
[2021-08-06] MEDS: 0.9% Saline Lock 10 ML Syringe IV (09:23)
[2021-08-06 09:26] LABS: Absolute Lymphocyte Count 1.84 X10^3/uL (0.83-4.51); Absolute Neutrophil Count 5.7 X10^3/uL (2.0-7.7); Basophil# 0.02 X10^3/uL; Basophil% 0.2 % (0-1); Eosinophil# 0.01 X10^3/uL; Eosinophils% 0.1 % (0-5); Hematocrit 34.1 % (37-47); Hemoglobin 10.6 g/dL (12.0-15.0); Lymphocyte # 1.84 X10^3/ul (0.83-4.51); Mean Corp Hgb Conc 31.1 g/dL (32-36); Mean Corpuscular Hgb 25.9 pg (27.0-32.0); Mean Corpuscular Volume 83.2 fL (81-99); Mean Platelet Vol. 9.1 fl (6.2-12.0); Monocyte# 0.69 X10^3/uL; Monocyte% 8.2 % (0-10); NRBC Flagged by Analyzer 0 % (0-5); Neutrophil # 5.68 X10^3/uL (2.7-7.7); Neutrophil % 67.9 % (47-70); Platelet Count 483 K/mm3 (150-450); RBC Distribution Width CV 16.5 % (11.6-14.6); RBC Distribution Width SD 49.4 fl (35.1-43.9); White Blood Count 8.4 K/mm3 (4.4-11.0)
--- NOTE | 2021-08-06 09:39 | CASEMGMT ---
Addendum entered by Ayaka Nails 08/06/21 14:48: Daughter requesting script for WW and script faxed to [facility] [place] [facility] as pt already getting oxygen from them. WW to be delivered to pt room. Estelle DIAZ CM Original Note: Pt re-tested for home oxygen today and pt needs 2L at rest and 4L w/ exertion. New order faxed to [facility] as pt will be discharged today. Yesterday, pt ended up with positive orthos and d/c was cancelled. Pt voices no further questions/concerns/needs and plan is to go home with daughter in [place]. Estelle DIAZ CM
[2021-08-06 10:01] LABS: ALB/GLOB Ratio 0.5 RATIO (0.9-2.4); AST(SGOT) 19 U/L (15-37); Alanine Aminotransfer ALT/SGPT 38 U/L (13-56); Albumin, Serum 2.5 g/dL (3.2-5.0); Alkaline Phosphatase 71 U/L (45-117); Anion Gap 6 (5-15); BUN 21 mg/dL (7-18); BUN/Creat Ratio 30.1 RATIO (10-20); Calcium,Total 9.3 mg/dL (8.5-10.1); Chloride 98 mmol/L (98-107); EST Glomerular Filtration Rate 85 mL/min (>60); Est Glom Filt Rate - Afr Amer 103 mL/min (>60); Estimated Creatinine Clearance 31.15 ml/min; Globulin 4.6 g/dL (2.2-4.2); Glucose 90 mg/dL (74-106); Potassium 4.1 mmol/L (3.5-5.1); Protein, Total 7.1 g/dL (6.4-8.2); Sodium Level 136 mmol/L (136-145)
[2021-08-06] MEDS: 0.9% Normal Saline 1,000 ML 100 ML IV (13:30)
--- NOTE | 2021-08-06 17:39 | PCM.PN.HOSP ---
Subjective Subjective Follow-up on acute respiratory failure/Acute COVID-19 pneumonia: Patient was seen and examined. Patient complains of feeling of unwell. Denies any new complains, fever or chills. Objective Data Objective Data Vital Signs: Vital Signs Temp Pulse Resp BP Pulse Ox 98.6 F 87 16 114/57 L 94 08/06/21 15:42 08/06/21 15:42 08/06/21 15:42 08/06/21 15:42 08/06/21 15:42 Oxygen Flow Rate (L/min) [ 4 AMBULATING with Oxygen #1] Oxygen Flow Rate (L/min) [At 2 REST with Oxygen] Oxygen Flow Rate (L/min) 2 Oxygen Delivery Method Nasal Cannula Weight: 65.2 kg Body Mass Index (BMI) 28.0 Intake & Output: Intake and Output for Last 24 Hours 08/04/21 08/05/21 08/06/21 23:59 23:59 23:59 Intake Total 1410 / 1410 2540 / 2540 1000 / 1000 Balance 1410 / 1410 2540 / 2540 1000 / 1000 Lab / Micro Data Result Diagrams: 08/06/21 08:55 08/06/21 08:55 Labs: Laboratory Results - last 24 hr 08/06/21 08:55: WBC 8.4, RBC 4.10 L, Hgb 10.6 L, Hct 34.1 L, MCV 83.2, MCH 25.9 L, MCHC 31.1 L, RDW Std Deviation 49.4 H, RDW Coeff of Cecille 16.5 H, Plt Count 483 H, MPV 9.1, Immature Gran % (Auto) 1.600 H, Neut % (Auto) 67.9, Lymph % (Auto) 22.0, [place] % (Auto) 8.2, Eos % (Auto) 0.1, Baso % (Auto) 0.2, Absolute Neuts (auto) 5.7, Absolute Lymphs (auto) 1.84, Nucleated RBC % 0 08/06/21 08:55: Sodium 136, Potassium 4.1, Chloride 98, Carbon Dioxide 32.0, Anion Gap 6, BUN 21 H, Creatinine 0.70, Estim Creat Clear Calc 31.15, Est GFR (MDRD) Af Amer 103, Est GFR (MDRD) Non-Af 85, BUN/Creatinine Ratio 30.1 H, Glucose 90, Calcium 9.3, Total Bilirubin 0.20, AST 19, ALT 38, Alkaline Phosphatase 71, Total Protein 7.1, Albumin 2.5 L, Globulin 4.6 H, Albumin/Globulin Ratio 0.5 L Physical Exam Narrative Physical exam: General: Alert, Oriented x3, Cooperative, on 4 L of oxygen HEENT: Atraumatic Oral: Moist Mucosa Neck: Supple Lungs: Clear to auscultation Cardiovascular: HS I+II, regular, no murmurs Abdomen: Bowel Sounds Present, Soft, Non Tender Extremities: No edema Assessment & Plan Assessment/Plan (1) Hypoxia: (2) Pneumonia due to 2019 novel coronavirus: PLAN: 1. Acute hypoxic respiratory failure secondary to acute COVID 19 pneumonia, Continue on s L of oxygen Continue on baricitinib Pulmonology and ID following 2. Orthostatic hypotension, status post fluid boluses, remains the same Continue gentle IV fluids for 1 L, recheck in a.m. 3. Hypothyroidism, continue on Synthroid Charges/Coding Visit Charges Inpatient E&M: 20697 Subs Hosp L2
[2021-08-06] MEDS: Acetaminophen 325 MG Tablet 650 MG PO (19:47)
[2021-08-06] MEDS: Albuterol Sulfate 8 gm Inhaler (60 puffs) 2 PUFF INHALATION (20:59)
[2021-08-06] MEDS: Paroxetine 20 MG Tablet 40 MG PO (20:59)
[2021-08-06] MEDS: MELATONIN 3 MG TABLET PO (21:03)
[2021-08-07 04:40] VITALS: BP 159/75; PULSE 79; RESP 18; TEMP 36.6; O2SAT 94
[2021-08-07 05:12] VITALS: BP 102/58; BP 134/61; BP 159/75; PULSE 75; PULSE 79; PULSE 83
[2021-08-07] MEDS: Levothyroxine 75 MCG Tablet PO (05:21)
[2021-08-07 05:58] LABS: Absolute Lymphocyte Count 1.49 X10^3/uL (0.83-4.51); Absolute Neutrophil Count 4.6 X10^3/uL (2.0-7.7); Basophil# 0.01 X10^3/uL; Basophil% 0.1 % (0-1); Hemoglobin 9.7 g/dL (12.0-15.0); Lymphocyte # 1.49 X10^3/ul (0.83-4.51); Lymphocyte % 22.2 % (19-41); Mean Corp Hgb Conc 31.3 g/dL (32-36); Mean Corpuscular Hgb 26.1 pg (27.0-32.0); Mean Corpuscular Volume 83.3 fL (81-99); Mean Platelet Vol. 9.1 fl (6.2-12.0); Monocyte# 0.48 X10^3/uL; Monocyte% 7.2 % (0-10); NRBC Flagged by Analyzer 0 % (0-5); Neutrophil # 4.63 X10^3/uL (2.7-7.7); Platelet Count 412 K/mm3 (150-450); RBC Distribution Width CV 16.5 % (11.6-14.6); RBC Distribution Width SD 49.9 fl (35.1-43.9); Red Blood Count 3.72 M/mm3 (4.2-5.4); White Blood Count 6.7 K/mm3 (4.4-11.0)
[2021-08-07 06:45] LABS: ALB/GLOB Ratio 0.5 RATIO (0.9-2.4); AST(SGOT) 16 U/L (15-37); Alanine Aminotransfer ALT/SGPT 29 U/L (13-56); Albumin, Serum 2.2 g/dL (3.2-5.0); Alkaline Phosphatase 68 U/L (45-117); Anion Gap 7 (5-15); BUN 18 mg/dL (7-18); BUN/Creat Ratio 28.3 RATIO (10-20); Calcium,Total 8.8 mg/dL (8.5-10.1); Chloride 99 mmol/L (98-107); Creatinine, Serum 0.64 mg/dL (0.55-1.02); EST Glomerular Filtration Rate 95 mL/min (>60); Est Glom Filt Rate - Afr Amer 115 mL/min (>60); Estimated Creatinine Clearance 31.15 ml/min; Globulin 4.3 g/dL (2.2-4.2); Glucose 80 mg/dL (74-106); Potassium 4.3 mmol/L (3.5-5.1); Protein, Total 6.5 g/dL (6.4-8.2); Sodium Level 136 mmol/L (136-145)
[2021-08-07 09:33] VITALS: BP 128/51; PULSE 84; RESP 16; TEMP 36.5; O2SAT 93
[2021-08-07] MEDS: Enoxaparin 40 MG/0.4 ML Syringe SC (09:33)
[2021-08-07] MEDS: guaiFENesin 600 MG Tablet PO ×2 (09:33→17:55)
[2021-08-07] MEDS: Acetaminophen 325 MG Tablet 650 MG PO (09:34)
[2021-08-07 11:53] VITALS: O2SAT 92
[2021-08-07 12:14] LABS: Thyroid Stim Hormone (TSH) 2.28 uIU/mL (0.358-3.74)
[2021-08-07 14:45] VITALS: O2SAT 95
[2021-08-07 15:30] VITALS: BP 113/57; BP 126/60; BP 130/60; PULSE 73; PULSE 75; PULSE 80; RESP 16; TEMP 36.6; O2SAT 96
--- NOTE | 2021-08-07 17:46 | NURSING ---
Spoke with Jasvir Cleaning. States it was ok to send patient home with extra portable oxygen tank and to inform family that they will need to return it to [facility] after returning home.
--- NOTE | 2021-08-09 14:05 | CASEMGMT ---
EMILY JESUS Discharge Follow-up Phone Call: CARINA: 9 Strata: 2 Call Date: 08/09/21 Discharge Date: 08/07/21 Time of Call: 1405 Duration: 1 min Admitting Diagnosis: Covid EMILY JESUS attempted to complete follow-up phone call after recent hospitalization. No answer, voice message left with return contact information.
== END 2021-08-07 18:12 | disposition home or self-care (01) | DRG 177 ==
LOC: ED 07-26 02:09 → PCU 07-26 02:25 → ICU 07-27 06:56 → PCU 08-02 07:09 → ICU 08-03 15:21
PROVIDERS: Internal Medicine Infectious Disease; Student in an Organized Health Care Education/Training Program; Admitting Provider Hospitalist; Emergency Provider Emergency Medicine; Visit Provider Internal Medicine
DX: U07.1 COVID-19 (principal); J12.82 Pneumonia due to coronavirus disease 2019; J96.01 Acute respiratory failure with hypoxia; E87.2 Acidosis; N18.32 Chronic kidney disease, stage 3b; I95.1 Orthostatic hypotension; E86.0 Dehydration; E03.9 Hypothyroidism, unspecified; L40.9 Psoriasis, unspecified; K21.9 Gastro-esophageal reflux disease without esophagitis; F32.A Depression, unspecified; F41.9 Anxiety disorder, unspecified; Z28.3 Underimmunization status; Z99.81 Dependence on supplemental oxygen; Z79.890 Hormone replacement therapy; Z79.899 Other long term (current) drug therapy
CPT/HCPCS: 36415; 36600; 71045; 80048; 80053; 82533; 82803; 83605; 84145; 84443; 85025; 85027; 85379; 93005; 94640; 94660; 97110; 97162; 97166; 97530; 97535; 99285; J7030; J7040; A4216; J1940

== ENCOUNTER 2025-02-16 08:47 | Inpatient (IN) | payer MEDICARE, SELFPAY ==
[2025-02-16] VITALS (15 sets, daily range): BP systolic 129–189; BP diastolic 53–83; PULSE 88–98; RESP 15–26; TEMP 36.8–37; O2SAT 85–99; BMI 30.7; BMI 30.4
--- NOTE | 2025-02-16 09:04 | ED.VIS.DYS ---
HPI History of Present Illness Chief Complaint: Shortness of Breath Informant: patient Onset/Context/Timing Onset: Weeks (1.5) Context: gradual Timing: Continuous Quality: Positive for Dyspnea on exertion and Orthopnea Worsened by: Exertion and Lying flat Relieved by: Nothing Associated Symptoms cough, sore throat and clear sputum; Negative for rhinorrhea, post nasal drip, ear pain, fever, chills, sweats, white sputum, yellow sputum or green sputum Chest Pain: Positive for None Narrative Narrative: Patient presents with shortness of breath that has been getting worse over the past week and a half. Patient admits to a cough. Patient states she is coughing up some clear sputum. Patient states her breathing is worse with laying flat and with exertion. Patient admits to a sore throat but feels that is from her cough. Patient denies any fevers or chills. Patient denies any chest pain. Patient admits to nausea and vomiting yesterday. [facility] Medical History Psoriasis Hypothyroidism Home Medications ?Medication ?Instructions ?Recorded ?Last Taken ?Type ascorbate calcium (vitamin C) 500 500 mg PO DAILY 02/16/25 02/15/25 History mg tablet atorvastatin 40 mg tablet (Lipitor) 40 mg PO DAILY 02/16/25 02/15/25 History Held on 02/16/25. Instructions: MD Ordered buspirone 10 mg tablet 10 mg PO BID 02/16/25 02/15/25 History ergocalciferol (vitamin D2) 1,250 1,250 mcg PO QWEEK 02/16/25 02/15/25 History mcg (50,000 unit) capsule (Vitamin D2) escitalopram oxalate 10 mg tablet 10 mg PO DAILY 02/16/25 02/15/25 History ferrous sulfate 325 mg (65 mg 325 mg PO DAILY 02/16/25 02/15/25 History iron) tablet (FeroSul) ibuprofen 200 mg tablet (Addaprin) 400 mg PO Q8H PRN fever or pain 02/16/25 02/15/25 History levothyroxine 88 mcg tablet 88 mcg PO DAILY 02/16/25 02/15/25 History (Euthyrox) loratadine 10 mg tablet (Allergy 10 mg PO DAILY PRN allergy symptoms 02/16/25 02/15/25 History Relief (loratadine)) magnesium oxide 500 mg PO QHS 02/16/25 02/15/25 History mecobalamin (vitamin B12) 500 mcg 1,000 mcg PO DAILY 02/16/25 02/15/25 History chewable tablet olanzapine 2.5 mg tablet 2.5 mg PO QHS 02/16/25 02/15/25 History trazodone 50 mg tablet 50 mg PO QHS 02/16/25 02/15/25 History vitamins A,C,T-guxg-vqispe 4,296 1 cap PO BID 02/16/25 02/15/25 History mcg-226 mg-90 mg capsule (Healthy Eyes SuperVision) zolpidem 10 mg tablet (Ambien) 10 mg PO QHS PRN insomnia 02/16/25 02/15/25 History Allergy/AdvReac Type Severity Reaction Status Date / Time propoxyphene (From Darvon) AdvReac Nausea Verified 02/16/25 08:48 Family History Other Cancer Surgical History Hx of exploratory laparotomy Social History Smoking Status: Never smoker ROS ROS ED Constitutional Constitutional ED: Denies chills or fever(s) Eyes Eyes: Denies blurry vision or change in vision ENT ENT ED: Denies rhinorrhea or sore throat Cardiovascular Cardiovascular: Denies chest pain or palpitations Respiratory/Chest Respiratory/Chest: Reports cough and dyspnea Gastrointestinal Gastrointestinal: Reports nausea and vomiting Genitourinary Genitourinary ED: Denies dysuria or hematuria Musculoskeletal Musculoskeletal: Reports back pain and neck pain Integumentary Denies abscess or rash Neurologic Neurologic: Denies headache(s) or weakness Allergic/Immunologic Allergic/Immunologic ED: Denies mouth swelling or urticaria EXAM Physical Exam Const Vital Signs: 02/16/25 08:48 02/16/25 09:00 02/16/25 09:30 Temperature 98.2 F Temperature Source Oral Pulse Rate 92 Respiratory Rate 24 H Respiratory Effort Normal Respiratory Pattern Tachypnea Blood Pressure 189/83 H Blood Pressure Mean 118 Pulse Ox 94 93 Oxygen Delivery Method Room Air Room Air Room Air Oxygen Flow Rate (L/min) 02/16/25 09:35 02/16/25 10:47 02/16/25 11:00 Temperature Temperature Source Pulse Rate 98 Respiratory Rate 18 Respiratory Effort Respiratory Pattern Blood Pressure 129/53 H Blood Pressure Mean 78 Pulse Ox 95 94 85 Oxygen Delivery Method Room Air Room Air Room Air Oxygen Flow Rate (L/min) 02/16/25 12:00 02/16/25 13:07 02/16/25 13:07 Temperature Temperature Source Pulse Rate 97 94 Respiratory Rate 18 21 H Respiratory Effort Respiratory Pattern Blood Pressure 148/72 H Blood Pressure Mean 97 Pulse Ox 98 96 Oxygen Delivery Method Nasal Cannula Nasal Cannula Oxygen Flow Rate (L/min) 2 2 Positive well nourished and well developed General Appearance ED: well developed and NAD HEENT Reports moist mucous membranes Neck supple and no JVD Resp normal respiratory effort Auscultation: wheezes expiratory wheezes and throughout Cardio regular rate and regular rhythm GI non-tender and non-distended Palpation: soft Neuro oriented x3, CN's II-XII intact bilaterally and no sensory deficits noted [place] Coma Scale: document GCS findings Spontaneous Obeys Commands Oriented 15 Sensorium / Orientation: alert Speech: speech normal Motor Exam: strength 5/5 throughout Psych mental status grossly normal MDM MDM MDM Narrative Medical decision making narrative: Differential diagnosis includes pneumonia, bronchitis, COPD exacerbation, asthma, electrolyte abnormality, cardiac dysrhythmia, cardiac ischemia, and anxiety. EKG will be obtained to assess for cardiac dysrhythmia and cardiac ischemia. Chest x-ray will be obtained to assess for pneumonia and bronchitis. CBC will be obtained to assess for leukocytosis and anemia. Basic metabolic profile will be obtained to assess for electrolyte abnormality and renal function. High-sensitivity troponin will be obtained to assess for cardiac ischemia. 2-hour repeat high-sensitivity troponin will be obtained to assess for ongoing cardiac ischemia. History & Record Review Additional record(s) reviewed:: Prior inpatient record, Prior ED visit and Prior labs Lab Data Attestation: I reviewed the patient's lab results. Lab results narrative: CBC was reviewed. White blood cell count was slightly low at 3.7. Hemoglobin was 11.2 and hematocrit was 35.4. Platelets were normal. Basic metabolic profile was reviewed and was essentially within normal limits. Initial high-sensitivity troponin was reviewed and was normal at 18. 2-hour repeat high-sensitivity troponin was reviewed and was also normal at 18. 4-hour repeat high-sensitivity troponin was reviewed and was 15. Labs: Laboratory Results - last 24 hr 02/16/25 02/16/25 02/16/25 09:30 11:50 13:11 WBC 3.7 L RBC 4.12 L Hgb 11.2 L Hct 35.4 L MCV 85.9 MCH 27.2 MCHC 31.6 L RDW Std Deviation 46.1 H RDW Coeff of Cecille 14.8 H Plt Count 236 MPV 8.6 Immature Gran % (Auto) 0.300 Neut % (Auto) 55.0 Lymph % (Auto) 23.3 [place] % (Auto) 21.4 H Eos % (Auto) 0.0 Baso % (Auto) 0.0 Absolute Neuts (auto) 2.0 Absolute Lymphs (auto) 0.85 Nucleated RBC % 0 Sodium 140 Potassium 4.0 Chloride 102 Carbon Dioxide 24.8 Anion Gap 13 BUN 23 H Creatinine 0.69 L Estim Creat Clear Calc 45.37 L Est GFR (MDRD) Non-Af 85 BUN/Creatinine Ratio 32.7 H Glucose 106 H Calcium 9.4 Troponin T High Sens 18 H Troponin T Hi Sens 2 Hr 18 H Troponin T Hi Sens 4Hr 15 H Radiography Diagnostic Testing: Clinical Impression(s) from Imaging Studies Chest X-Ray 02/16/25 09:45 IMPRESSION: No focal consolidations. Bibasilar subsegmental atelectasis. Mild pulmonary vascular congestion and mild cardiomegaly. Reading Location: [facility] PA and lateral chest x-ray was obtained. There are 2 views. On my independent interpretation, lung cuellar show mild pulmonary vascular congestion and bibasilar subsegmental atelectasis. There is mild cardiomegaly. Bony thorax is normal. Radiologist also interpreted the x-ray and agrees. EKG Initial EKG: Attestation: I personally reviewed and interpreted this EKG as follows: Interpretation: Sinus Rhythm (83) and No Acute Injury Pattern Comments: EKG was obtained. On my independent interpretation, it showed a normal sinus rhythm with a rate of 83. NH interval, QRS interval, and QTc intervals were all normal. [place] was normal. There are no acute ST or T wave changes. Prior EKG tracings: available for review Prior: Unchanged (08/05/2021) Management Discussion w/another healthcare provider: Hospitalist Treatment and Re-Evaluation :: Patient was given a DuoNeb aerosol here. Patient was still having some expiratory wheezing on reevaluation. Patient was given an albuterol aerosol. Patient ambulated here in the emergency department dropped to 86% on room air. Patient was placed back on nasal cannula. Patient was advised of the need for hospice physician. COVID-19, influenza, and RSV PCR will be obtained to assess for viral illness. Discharge Plan Triage Chief Complaint: Shortness of Breath ED Provider: London Diaz Dx/Rx/DC Orders Clinical Impression: Hypoxia, Reactive airway disease, Elevated blood pressure reading without diagnosis of hypertension Prescriptions: No Action ferrous sulfate [FeroSul] 325 mg (65 mg iron) tablet 325 mg PO DAILY magnesium oxide 500 mg magnesium tablet 500 mg PO QHS escitalopram oxalate 10 mg tablet 10 mg PO DAILY olanzapine 2.5 mg tablet 2.5 mg PO QHS zolpidem [Ambien] 10 mg tablet 10 mg PO QHS PRN (Reason: insomnia) buspirone 10 mg tablet 10 mg PO BID trazodone 50 mg tablet 50 mg PO QHS levothyroxine [Euthyrox] 88 mcg tablet 88 mcg PO DAILY ergocalciferol (vitamin D2) [Vitamin D2] 1,250 mcg (50,000 unit) capsule 1,250 mcg PO QWEEK Rx Instructions: PT TAKES ON THURSDAYS atorvastatin [Lipitor] 40 mg tablet 40 mg PO DAILY loratadine [Allergy Relief (loratadine)] 10 mg tablet 10 mg PO DAILY PRN (Reason: allergy symptoms) ibuprofen [Addaprin] 200 mg tablet 400 mg PO Q8H PRN (Reason: fever or pain) mecobalamin (vitamin B12) 500 mcg tablet,chewable 1,000 mcg PO DAILY ascorbate calcium (vitamin C) 500 mg tablet 500 mg PO DAILY Healthy Eyes SuperVision 4,296 mcg-226 mg-90 mg capsule 1 cap PO BID Primary Care Provider: Yaneli Crawford Referrals: Care Physician,No Primary [Non-Staff] - Print Language: Ukrainian
--- NOTE | 2025-02-16 09:18 | EKG12_ITS ---
Test Reason : SOB Blood Pressure : */* mmHG Vent. Rate : 83 BPM Atrial Rate : 83 BPM P-R Int : 140 ms QRS Dur : 78 ms QT Int : 384 ms P-R-T Axes : 68 -7 64 degrees QTcB Int : 451 ms Normal sinus rhythm Normal ECG Confirmed by Braeden Fong ([id number]), newspaper or periodical editor OMAR PUENTE ([id number]) on 02/24/2025 1:06:32 PM Referred By: Confirmed By: Braeden Fong
[2025-02-16] MEDS: Ipratropium/Albuterol Sulfate 3 ML AMPUL.NEB INHALATION ×2 (09:30→19:50)
[2025-02-16 09:39] LABS: Absolute Lymphocyte Count 0.85 X10^3/uL (0.83-4.51); Hematocrit 35.4 % (37-47); Hemoglobin 11.2 g/dL (12.0-15.0); Lymphocyte # 0.85 X10^3/ul (0.83-4.51); Lymphocyte % 23.3 % (19-41); Mean Corp Hgb Conc 31.6 g/dL (32-36); Mean Corpuscular Hgb 27.2 pg (27.0-32.0); Mean Corpuscular Volume 85.9 fL (81-99); Mean Platelet Vol. 8.6 fl (6.2-12.0); Monocyte# 0.78 X10^3/uL; Monocyte% 21.4 % (0-10); NRBC Flagged by Analyzer 0 % (0-5); Neutrophil # 2.01 X10^3/uL (2.7-7.7); Platelet Count 236 K/mm3 (150-450); RBC Distribution Width CV 14.8 % (11.6-14.6); RBC Distribution Width SD 46.1 fl (35.1-43.9); Red Blood Count 4.12 M/mm3 (4.2-5.4); White Blood Count 3.7 K/mm3 (4.4-11.0)
--- NOTE | 2025-02-16 09:45 | RAD_ITS ---
PROCEDURE: CHEST PA AND LATERAL 02/16/2025 REASON FOR EXAM: DYSPNEA TECHNIQUE: Frontal and lateral views of the chest. COMPARISON: None FINDINGS: No focal consolidations. Bibasilar subsegmental atelectasis. Mild pulmonary vascular congestion. No pleural effusion or pneumothorax. No acute fractures. Mild cardiomegaly. RAD/Chest PA and Lateral IMPRESSION: No focal consolidations. Bibasilar subsegmental atelectasis. Mild pulmonary v ascular congestion and mild cardiomegaly. Reading Location: [id number]
[2025-02-16 10:06] LABS: Anion Gap 13 (5-15); BUN 23 mg/dL (4-19); BUN/Creat Ratio 32.7 RATIO (10-20); Calcium,Total 9.4 mg/dL (7.6-11.0); Carbon Dioxide 24.8 mmol/L (21.0-32.0); Chloride 102 mmol/L (98-108); Creatinine, Serum 0.69 mg/dL (0.70-1.20); EST Glomerular Filtration Rate 85 (>60); Estimated Creatinine Clearance 45.37 ml/min (50-250); Glucose 106 mg/dL (70-99); Sodium Level 140 mmol/L (133-145)
[2025-02-16 10:13] LABS: Troponin T High Sensitivity 18 ng/L (<=14)
[2025-02-16 12:18] LABS: Troponin T High Sens 2 HR 18 ng/L (<=14)
[2025-02-16] MEDS: Albuterol 2.5 MG/3 ML VIAL.NEB. INHALATION (13:05)
[2025-02-16 13:31] LABS: Troponin T High Sens 4 HR 15 ng/L (<=14)
--- NOTE | 2025-02-16 13:43 | ED.RN ---
Dr. Diaz notified of 86% while ambulating
--- NOTE | 2025-02-16 14:38 | PCM.HP.STD ---
[facility] - General General Date of Service: 02/16/25 Chief Complaint: Shortness of breath HPI Narrative ELFEGO AUSTIN, is a 84 F who presents with shortness of breath. This is an 84-year-old female with a history of hypothyroidism presents with a 2-week history of dyspnea on exertion. Has been holding steady during this time. Patient has also been feeling unwell with nonproductive cough and sore throat. Denies any chest pain. Noted that her pulse ox was around 88% at home. Presented here where she was 85% on room air. Placed on oxygen. Chest x-ray was unremarkable. Patient did receive bronchodilators in the emergency room. She did have a COVID/influenza/RSV swab performed which is currently pending. In 2020, patient did have a severe case of COVID-19 and was hospitalized for roughly 3 weeks. [facility] Medical History Psoriasis Hypothyroidism Home Medications ?Medication ?Instructions ?Recorded ?Last Taken ?Type ascorbate calcium (vitamin C) 500 500 mg PO DAILY 02/16/25 02/15/25 History mg tablet atorvastatin 40 mg tablet (Lipitor) 40 mg PO DAILY 02/16/25 02/15/25 History Held on 02/16/25. Instructions: MD Ordered buspirone 10 mg tablet 10 mg PO BID 02/16/25 02/15/25 History ergocalciferol (vitamin D2) 1,250 1,250 mcg PO QWEEK 02/16/25 02/15/25 History mcg (50,000 unit) capsule (Vitamin D2) escitalopram oxalate 10 mg tablet 10 mg PO DAILY 02/16/25 02/15/25 History ferrous sulfate 325 mg (65 mg 325 mg PO DAILY 02/16/25 02/15/25 History iron) tablet (FeroSul) ibuprofen 200 mg tablet (Addaprin) 400 mg PO Q8H PRN fever or pain 02/16/25 02/15/25 History levothyroxine 88 mcg tablet 88 mcg PO DAILY 02/16/25 02/15/25 History (Euthyrox) loratadine 10 mg tablet (Allergy 10 mg PO DAILY PRN allergy symptoms 02/16/25 02/15/25 History Relief (loratadine)) magnesium oxide 500 mg PO QHS 02/16/25 02/15/25 History mecobalamin (vitamin B12) 500 mcg 1,000 mcg PO DAILY 02/16/25 02/15/25 History chewable tablet olanzapine 2.5 mg tablet 2.5 mg PO QHS 02/16/25 02/15/25 History trazodone 50 mg tablet 50 mg PO QHS 02/16/25 02/15/25 History vitamins A,C,S-fipc-tuuudd 4,296 1 cap PO BID 02/16/25 02/15/25 History mcg-226 mg-90 mg capsule (Healthy Eyes SuperVision) zolpidem 10 mg tablet (Ambien) 10 mg PO QHS PRN insomnia 02/16/25 02/15/25 History Allergy/AdvReac Type Severity Reaction Status Date / Time propoxyphene (From Darvon) AdvReac Nausea Verified 02/16/25 08:48 Family History Other Cancer Surgical History Hx of exploratory laparotomy Social History Smoking Status: Never smoker ROS ROS Narrative Has put on 15 pounds since this past fall. Denies lower extremity edema. All review of systems were negative except as mentioned above in the history of present illness and the other review of systems. Vital Signs Vital Signs Vital Signs: 02/16/25 08:48 02/16/25 09:00 02/16/25 09:30 Temperature 36.8 C Temperature Source Oral Pulse Rate 92 Respiratory Rate 24 H Respiratory Effort Normal Respiratory Pattern Tachypnea Blood Pressure 189/83 H Blood Pressure Mean 118 Pulse Ox 94 93 Oxygen Delivery Method Room Air Room Air Room Air Oxygen Flow Rate (L/min) 02/16/25 09:35 02/16/25 10:47 02/16/25 11:00 Temperature Temperature Source Pulse Rate 98 Respiratory Rate 18 Respiratory Effort Respiratory Pattern Blood Pressure 129/53 H Blood Pressure Mean 78 Pulse Ox 95 94 85 Oxygen Delivery Method Room Air Room Air Room Air Oxygen Flow Rate (L/min) 02/16/25 12:00 02/16/25 13:07 02/16/25 13:07 Temperature Temperature Source Pulse Rate 97 94 Respiratory Rate 18 21 H Respiratory Effort Respiratory Pattern Blood Pressure 148/72 H Blood Pressure Mean 97 Pulse Ox 98 96 Oxygen Delivery Method Nasal Cannula Nasal Cannula Oxygen Flow Rate (L/min) 2 2 02/16/25 14:00 Temperature Temperature Source Pulse Rate 90 Respiratory Rate 24 H Respiratory Effort Respiratory Pattern Blood Pressure 143/66 H Blood Pressure Mean 91 Pulse Ox 97 Oxygen Delivery Method Nasal Cannula Oxygen Flow Rate (L/min) 2 Weight Weight: 71.486 kg Body Mass Index (BMI) 30.7 Physical Exam Narrative POCUS: Indication is for shortness of breath. Using curvilinear probe (as phased-array was not available on the ultrasound cart in the emergency room) in the subxiphoid view, the heart looked grossly normal. IVC was visualized and nondilated and collapsible with inspiration. Using linear probe evaluating the lung in the lateral and posterior cuellar showed no B-lines to suggest heart failure. I did show good lung sliding. - Physical Exam General: Alert, Oriented x3, Cooperative HEENT: Atraumatic, PERRLA, EOMI, Normocephalic Oral: Moist Mucosa, No Gingival or Mucosal Lesions/ Ulcerations Neck: Supple, No JVD, Negative Carotid Bruits Lungs: Clear to auscultation, Normal air movement. No crackles. No wheezes. Cardiovascular: Regular rate, Normal S1, Normal S2, No murmurs Abdomen: Bowel Sounds Present, Soft, Non Tender, Non-Distended, No Hepato-splenomegaly Extremities: No clubbing, No cyanosis, No edema, Capillary Refill Less than 3 Seconds Skin: No rashes, No breakdown Musculoskeletal: No Tenderness to Palpation of Joints or Extremities Neurological: Neuro grossly intact Psych/Mental Status: Normal Affect, Appropriate Results Lab / Micro Data Attestation: I reviewed the patient's lab results. 02/16/25 09:30 02/16/25 09:30 Labs: Laboratory Results - last 24 hr 02/16/25 09:30: WBC 3.7 L, RBC 4.12 L, Hgb 11.2 L, Hct 35.4 L, MCV 85.9, MCH 27.2, MCHC 31.6 L, RDW Std Deviation 46.1 H, RDW Coeff of Cecille 14.8 H, Plt Count 236, MPV 8.6, Immature Gran % (Auto) 0.300, Neut % (Auto) 55.0, Lymph % (Auto) 23.3, [place] % (Auto) 21.4 H, Eos % (Auto) 0.0, Baso % (Auto) 0.0, Absolute Neuts (auto) 2.0, Absolute Lymphs (auto) 0.85, Nucleated RBC % 0, Sodium 140, Potassium 4.0, Chloride 102, Carbon Dioxide 24.8, Anion Gap 13, BUN 23 H, Creatinine 0.69 L, Estim Creat Clear Calc 45.37 L, Est GFR (MDRD) Non-Af 85, BUN/Creatinine Ratio 32.7 H, Glucose 106 H, Calcium 9.4, Troponin T High Sens 18 H 02/16/25 11:50: Troponin T Hi Sens 2 Hr 18 H 02/16/25 13:11: Troponin T Hi Sens 4Hr 15 H EKG Initial EKG: Attestation: I personally reviewed and interpreted this EKG as follows: Prior EKG tracings: available for review EKG Rhythm Intrepretation: Sinus Rhythm Imaging Radiology Impression Chest X-Ray 02/16/25 09:45 IMPRESSION: No focal consolidations. Bibasilar subsegmental atelectasis. Mild pulmonary vascular congestion and mild cardiomegaly. Reading Location: [facility] Assessment & Plan Assessment/Plan (1) Bronchitis: PLAN: Acute may be viral. Patient was hypoxic prior to arrival and upon arrival. Patient has since been placed on oxygen. I do not see any evidence of any heart failure on POCUS examination (grossly normal heart motion, collapsible IVC, no B-lines). And she does have outstanding viral studies. In the meantime we will treat her for bronchitis with bronchodilators and methylprednisolone. If patient does have COVID she is really outside the window for any treatment as her symptoms began 2 weeks ago as well as with influenza. Will add guaifenesin with codeine to help with proxisms of cough. Given the prolonged nature of her symptoms, over the past 2 weeks and hypoxia, anticipate the patient's hospitalization requiring greater than 2 midnights. (2) Elevated troponin I level: PLAN: Mild elevation in patient does not have any symptoms related with coronary ischemia. I feel the troponin elevation is likely more demand ischemia due to her hypoxia. EKG was unremarkable. No additional workup at this time. Cardiac exam on the limited POCUS appear to be grossly normal. PLAN: Plan Chronic conditions Hypothyroidism: Continue levothyroxine Depression/anxiety: Continue with escitalopram, buspirone, olanzapine VTE prophylaxis with enoxaparin CODE STATUS: Addressed with the patient. Patient wishes to be full code. Discussed with patient's daughter at bedside. Charges/Coding Visit Charges Inpatient E&M: 30391 Init Hosp L3
[2025-02-16] MEDS: 0.9% Saline Lock 10 ML Syringe IV ×2 (16:39→22:02)
[2025-02-16] MEDS: guaiFENesin/Codeine 5 ML UDC 10 ML PO (16:39)
[2025-02-16] MEDS: Multivitamin (Healthy Eyes) Capsule 1 CAP PO (22:01)
[2025-02-16] MEDS: OLANZapine 2.5 MG Tablet PO (22:02)
[2025-02-16] MEDS: traZODone 50 MG Tablet PO (22:02)
[2025-02-16] MEDS: busPIRone 5 MG Tablet 10 MG PO (22:02)
[2025-02-17] VITALS (8 sets, daily range): BP systolic 126–135; BP diastolic 52–72; PULSE 82–99; RESP 15–20; TEMP 36.6–36.8; O2SAT 94–96
[2025-02-17] MEDS: Acetaminophen 325 MG Tablet 650 MG PO ×2 (00:36→21:40)
[2025-02-17] MEDS: guaiFENesin/Codeine 5 ML UDC 10 ML PO ×2 (00:37→21:42)
[2025-02-17 05:46] LABS: Absolute Lymphocyte Count 0.39 X10^3/uL (0.83-4.51); Absolute Neutrophil Count 2.3 X10^3/uL (2.0-7.7); Hematocrit 31.8 % (37-47); Hemoglobin 10.1 g/dL (12.0-15.0); Lymphocyte # 0.39 X10^3/ul (0.83-4.51); Lymphocyte % 13.5 % (19-41); Mean Corp Hgb Conc 31.8 g/dL (32-36); Mean Corpuscular Hgb 27.2 pg (27.0-32.0); Mean Corpuscular Volume 85.5 fL (81-99); Mean Platelet Vol. 9.2 fl (6.2-12.0); Monocyte# 0.14 X10^3/uL; Monocyte% 4.8 % (0-10); NRBC Flagged by Analyzer 0 % (0-5); Neutrophil # 2.34 X10^3/uL (2.7-7.7); POSITIVE DIFFERENTIAL YES; Platelet Count 223 K/mm3 (150-450); RBC Distribution Width CV 14.9 % (11.6-14.6); RBC Distribution Width SD 46.7 fl (35.1-43.9); Red Blood Count 3.72 M/mm3 (4.2-5.4); White Blood Count 2.9 K/mm3 (4.4-11.0)
[2025-02-17 05:51] LABS: Differential Indicated SCAN CRITERIA MET
[2025-02-17 06:11] LABS: Anion Gap 13 (5-15); BUN 20 mg/dL (4-19); BUN/Creat Ratio 30.6 RATIO (10-20); Carbon Dioxide 22.4 mmol/L (21.0-32.0); Chloride 101 mmol/L (98-108); Creatinine, Serum 0.64 mg/dL (0.70-1.20); EST Glomerular Filtration Rate 87 (>60); Estimated Creatinine Clearance 45.14 ml/min (50-250); Glucose 149 mg/dL (70-99); Potassium 4.2 mmol/L (3.3-5.1); Sodium Level 137 mmol/L (133-145)
[2025-02-17] MEDS: Levothyroxine 88 MCG Tablet PO (06:38)
[2025-02-17 07:00] LABS: Differential Comment SCANNED
[2025-02-17] MEDS: Ipratropium/Albuterol Sulfate 3 ML AMPUL.NEB INHALATION ×3 (07:07→20:16)
[2025-02-17 07:50] LABS: Pro- Brain NATRIURETIC PEPTIDE 268 pg/mL (<=1800); Thyroid Stim Hormone (TSH) 0.662 uIU/mL (0.300-4.200)
[2025-02-17 08:39] LABS: D-Dimer Quantitative (DVT/PE) 0.78 FEU/ug/m (0.27-0.49)
[2025-02-17] MEDS: Escitalopram Oxalate 10 MG Tablet PO (08:47)
[2025-02-17] MEDS: Enoxaparin 40 MG/0.4 ML Syringe SC (08:47)
[2025-02-17] MEDS: Multivitamin (Healthy Eyes) Capsule 1 CAP PO ×2 (08:47→21:28)
[2025-02-17] MEDS: busPIRone 5 MG Tablet 10 MG PO ×2 (08:47→21:28)
--- NOTE | 2025-02-17 10:25 | PN.HOSP_ITS ---
Reason for Visit Reason for Visit: Diagnoses Bronchitis, not specified as acute or chronic (02/16/25) Other specified abnormal findings of blood chemistry (02/16/25) Subjective Subjective Saw patient at bedside morning. Patient was sitting up comfortably in bed unfortunately. She did appear somewhat fatigued and had several short episodes of dry cough during our encounter. Stated that she does feel slightly better this morning compared to yesterday. Denies any chest pain or discomfort. Denies any new sputum production. Denies any shortness of breath at rest. Has not been out of bed much since coming up to the floor, unsure if she continues to have shortness of breath with exertion. No other new concerns this morning. Objective Data Objective Data Vital Signs: Vital Signs Temp Pulse Resp BP Pulse Ox O2 Del Method O2 Flow Rate 98.0 F 88 20 H 135/52 H 96 Nasal Cannula 2 02/17/25 02:29 02/17/25 07:07 02/17/25 07:07 02/17/25 02:29 02/17/25 07:07 02/17/25 08:41 02/17/25 08:41 Oxygen Flow Rate (L/min) 2 Oxygen Delivery Method Nasal Cannula Weight: 70.8 kg Body Mass Index (BMI) 30.4 Intake & Output: Intake and Output for Last 24 Hours 02/15/25 02/16/25 02/17/25 23:59 23:59 23:59 Intake Total 200 / 200 Balance 200 / 200 Lab / Micro Data 02/17/25 05:04 02/17/25 05:04 Labs: Laboratory Results - last 24 hr 02/16/25 11:50: Troponin T Hi Sens 2 Hr 18 H 02/16/25 13:11: Troponin T Hi Sens 4Hr 15 H 02/17/25 05:04: WBC 2.9 L, RBC 3.72 L, Hgb 10.1 L, Hct 31.8 L, MCV 85.5, MCH 27.2, MCHC 31.8 L, RDW Std Deviation 46.7 H, RDW Coeff of Cecille 14.9 H, Plt Count 223, MPV 9.2, Immature Gran % (Auto) 0.700, Neut % (Auto) 81.0 H, Lymph % (Auto) 13.5 L, [place] % (Auto) 4.8, Eos % (Auto) 0.0, Baso % (Auto) 0.0, Absolute Neuts (auto) 2.3, Absolute Lymphs (auto) 0.39 L, Nucleated RBC % 0, Differential Comment SCANNED, Sodium 137, Potassium 4.2, Chloride 101, Carbon Dioxide 22.4, Anion Gap 13, BUN 20 H, Creatinine 0.64 L, Estim Creat Clear Calc 45.14 L, Est GFR (MDRD) Non-Af 87, BUN/Creatinine Ratio 30.6 H, Glucose 149 H, Calcium 9.0, NT pro BNP II 268, TSH 0.662, Free T4 1.10 02/17/25 07:45: D-Dimer Quant (PE/DVT) 0.78 H* Micro: Microbiology 02/16/25 13:55 Mucosa - Nose SARS-CoV-2, Influenza & RSV (PCR) - Final Physical Exam Const alert, oriented x3 and no apparent distress Constitutional Narrative: Elderly female, mentally sharp, mildly fatigued appearing but otherwise sitting up comfortably in bed, conversing normally and in no acute distress. General Appearance: cooperative and comfortable HEENT normocephalic, head/scalp atraumatic, hearing grossly normal bilaterally, nasal mucous membranes and turbinates normal and moist oral mucous membranes Eyes PERRL, EOMs intact bilaterally and conjunctivae normal Neck full ROM Chest inspection of chest normal Resp normal respiratory effort and no use of accessory muscles Resp Narrative: Breathing comfortably on 2 L nasal cannula at rest. Mild crackles noted in bilateral lung bases but otherwise good air movement with no wheezing noted. Cardio regular rate, regular rhythm, no murmurs and peripheral pulses 2+ throughout GI normal to inspection, nondistended, normoactive bowel sounds, soft to palpation, non-tender and non-distended Back/Spine normal ROM Extremity normal to inspection, full ROM and no pedal edema Skin no rashes or lesions noted Psych mental status grossly normal Assessment & Plan Assessment/Plan (1) Bronchitis: (2) Hypoxia: PLAN: Plan Patient is an 84-year-old female who presented to [facility] ED on 02/16/2025 with worsening shortness of breath. 1. Acute bronchitis with hypoxia ? Not on home oxygen, requiring 2 L nasal cannula at rest to maintain appropriate saturations on admit. Symptoms seem most consistent with viral URI. COVID/flu/RSV negative, full respiratory panel pending. Mild leukopenia present. Chest x-ray with mild pulmonary vascular congestion and mild cardiomegaly, otherwise unremarkable. D-dimer negative when age-adjusted. BNP normal. Continue scheduled IV steroids and breathing treatments for now. Continue as needed medications for symptom control. Will tentatively plan for O2 testing tomorrow in anticipation for possible discharge home. 2. Elevated troponin level ? Troponin trend 18 > 18 > 15 on admit. No EKG changes noted. No chest pain noted. Cardiac exam on limited POCUS in ED unremarkable, and D-dimer and BNP normal. Presume secondary to demand ischemia in setting of hypoxia. No additional workup needed at this time. 3. Hypothyroidism ? TSH and free T4 normal on admit. Continue home Synthroid. 4. Depression/anxiety ? Stable. Continue home escitalopram, buspirone and olanzapine. 5. Mild chronic iron deficiency anemia ? Hemoglobin stable at baseline around 10 on admit. Continue home iron supplement. DVT prophylaxis: Lovenox CODE STATUS: Full code, verified Expected disposition: Home, 1 to 2 days Total clinical time spent by myself addressing the patient's medical issues, reviewing all the data, and collaborating with patient's care team: 35 minutes. Charges/Coding Visit Charges Inpatient E&M: 47742 Subs Hosp L2
[2025-02-17] MEDS: Ferrous Sulfate 325 MG Tablet PO (11:51)
[2025-02-17] MEDS: 0.9% Saline Lock 10 ML Syringe IV (13:33)
[2025-02-17] MEDS: traZODone 50 MG Tablet PO (21:28)
[2025-02-17] MEDS: OLANZapine 2.5 MG Tablet PO (21:28)
[2025-02-18] VITALS (11 sets, daily range): BP systolic 121–146; BP diastolic 51–70; PULSE 74–89; RESP 16–20; TEMP 36.7–36.9; O2SAT 87–98
[2025-02-18] MEDS: Ibuprofen 400 MG Tablet PO ×2 (01:44→16:23)
[2025-02-18] MEDS: Levothyroxine 88 MCG Tablet PO (05:45)
[2025-02-18] MEDS: Acetaminophen 325 MG Tablet 650 MG PO ×3 (05:48→20:20)
[2025-02-18] MEDS: guaiFENesin/Codeine 5 ML UDC 10 ML PO ×3 (05:49→21:50)
[2025-02-18] MEDS: Sodium Chloride 0.65% 1 SPRAY SPRAY.BTL 2 SPRAY NASAL (05:49)
[2025-02-18] MEDS: Ipratropium/Albuterol Sulfate 3 ML AMPUL.NEB INHALATION ×3 (06:41→20:53)
[2025-02-18] MEDS: Enoxaparin 40 MG/0.4 ML Syringe SC (10:08)
[2025-02-18] MEDS: Multivitamin (Healthy Eyes) Capsule 1 CAP PO ×2 (10:08→21:46)
[2025-02-18] MEDS: busPIRone 5 MG Tablet 10 MG PO ×2 (10:08→21:46)
[2025-02-18] MEDS: Escitalopram Oxalate 10 MG Tablet PO (10:08)
[2025-02-18] MEDS: Ferrous Sulfate 325 MG Tablet PO (10:08)
--- NOTE | 2025-02-18 11:41 | CASEMGMT ---
EMILY JESUS Assessment: Face to Face with pt for initial transition planning/care coordination assessment. EMILY JESUS introduced self and role at [facility], pt voices understanding and consents to assessment. Pt is A&O x4 and answers all questions appropriately at this time. Pt lying in bed in no distress, daughter sitting at bedside. Care providers, pharmacy, and demographics verified/updated. Strata: 2 Admitting Dx: acute bronchitis PCP: Ty Specialists: Denies Preferred Pharmacy: [facility] Insurance: [facility] Prescription Benefit: yes LNOK: Daughter, Arlette; Daughter, Vasiliy Living Arrangements: Pt lives alone in an apartment with 1 step to enter. ADLs: Pt reports I with ADLs and IADLs. Transportation: Pt daughter provides transportation. DME: Denies HHC/SNF: Denies Hx of. Pt states no concerns with going home at time of dc. Pt states no further concerns/needs. Pt does not use O2 at baseline, currently on O2 in the room. EMILY JESUS discussed possibility of O2 at time of DC, provided verbal list of local DME providers. Pt chose [facility] as DME provider of choice. CM to follow. Advised pt to ask CM if any further question/concerns/needs arise, voices understanding. Pt Goal: Home Plan: Home with family support, follow for O2 needs. Mac DIAZ CM
--- NOTE | 2025-02-18 12:52 | PN.HOSP_ITS ---
Reason for Visit Reason for Visit: Diagnoses Bronchitis, not specified as acute or chronic (02/16/25) Hypoxemia (02/16/25) Other specified abnormal findings of blood chemistry (02/16/25) Subjective Subjective Saw patient at bedside this morning, daughter present. Patient reported feeling similar this morning to yesterday. Remains fatigued and continues to have dry cough, similar to yesterday. Is on 2 L nasal cannula this morning with good oxygen saturations. Has not completed O2 ambulatory test yet. Feels weaker than her normal and lives at home alone, so therapy will evaluate her today. No other new concerns this morning. Objective Data Objective Data Vital Signs: Vital Signs Temp Pulse Resp BP Pulse Ox O2 Del Method O2 Flow Rate 98.1 F 74 18 126/51 H 96 Nasal Cannula 1 02/18/25 10:04 02/18/25 10:04 02/18/25 10:04 02/18/25 10:04 02/18/25 10:04 02/18/25 10:04 02/18/25 10:04 Oxygen Flow Rate (L/min) 1 Oxygen Delivery Method Nasal Cannula Weight: 70.8 kg Body Mass Index (BMI) 30.4 Intake & Output: Intake and Output for Last 24 Hours 02/16/25 02/17/25 02/18/25 23:59 23:59 23:59 Intake Total 200 / 200 100 / 100 Balance 200 / 200 100 / 100 Lab / Micro Data 02/17/25 05:04 02/17/25 05:04 Micro: Microbiology 02/17/25 08:02 Mucosa - Nose Respiratory Panel (PCR) - Final Parainfluenza 3 02/16/25 13:55 Mucosa - Nose SARS-CoV-2, Influenza & RSV (PCR) - Final Physical Exam Const alert, oriented x3 and no apparent distress Constitutional Narrative: Elderly female, mentally sharp, mild to moderately fatigued appearing but otherwise sitting up comfortably in bed, conversing normally and in no acute distress. Stable. General Appearance: cooperative and comfortable HEENT normocephalic, head/scalp atraumatic, hearing grossly normal bilaterally, nasal mucous membranes and turbinates normal and moist oral mucous membranes Eyes PERRL, EOMs intact bilaterally and conjunctivae normal Neck full ROM Chest inspection of chest normal Resp normal respiratory effort and no use of accessory muscles Resp Narrative: Breathing comfortably on 2 L nasal cannula at rest. Mild crackles noted in bilateral lung bases but otherwise good air movement with no wheezing noted. Stable. Cardio regular rate, regular rhythm, no murmurs and peripheral pulses 2+ throughout GI normal to inspection, nondistended, normoactive bowel sounds, soft to palpation, non-tender and non-distended Back/Spine normal ROM Extremity normal to inspection, full ROM and no pedal edema Skin no rashes or lesions noted Psych mental status grossly normal Assessment & Plan Assessment/Plan (1) Bronchitis: (2) Hypoxia: PLAN: Plan Patient is an 84-year-old female who presented to [facility] ED on 02/16/2025 with worsening shortness of breath. 1. Acute bronchitis with hypoxia secondary to parainfluenza virus infection ? Not on home oxygen, requiring 2 L nasal cannula at rest to maintain appropriate saturations on admit. Positive for parainfluenza 3 virus. Mild leukopenia present on admit. Chest x-ray with mild pulmonary vascular congestion and mild cardiomegaly, otherwise unremarkable. D-dimer negative when age-adjusted. BNP normal. Slow improvement clinically. Will de-escalate from IV steroids to p.o. steroids tomorrow. Continue scheduled breathing treatments for now. Continue as needed medications for symptom control. Continue scheduled IV steroids and breathing treatments for now. Continue as needed medications for symptom control. Will complete O2 ambulatory testing today to determine if she would require supplemental oxygen especially with exertion on discharge. Potential discharge later today versus tomorrow. 2. Elevated troponin level ? Troponin trend 18 > 18 > 15 on admit. No EKG changes noted. No chest pain noted. Cardiac exam on limited POCUS in ED unremarkable, and D-dimer and BNP normal. Presume secondary to demand ischemia in setting of hypoxia. No additional workup needed at this time. 3. Hypothyroidism ? TSH and free T4 normal on admit. Continue home Synthroid. 4. Depression/anxiety ? Stable. Continue home escitalopram, buspirone and olanzapine. 5. Mild chronic iron deficiency anemia ? Hemoglobin stable at baseline around 10 on admit. Continue home iron supplement. 6. Generalized weakness ? PT/OT/case management following. Lives at home alone. Feels weaker and more fatigued from her baseline presume secondary to viral infection. Will likely need either home health care or outpatient therapy on discharge. DVT prophylaxis: Lovenox CODE STATUS: Full code, verified Expected disposition: Home, 1 to 2 days Total clinical time spent by myself addressing the patient's medical issues, reviewing all the data, and collaborating with patient's care team: 35 minutes. Charges/Coding Visit Charges Inpatient E&M: 81513 Subs Hosp L2
[2025-02-18] MEDS: traZODone 50 MG Tablet PO (21:46)
[2025-02-18] MEDS: OLANZapine 2.5 MG Tablet PO (21:49)
[2025-02-19] VITALS (14 sets, daily range): BP systolic 116–140; BP diastolic 53–68; PULSE 71–88; RESP 16–20; TEMP 36.7–37; O2SAT 2–100
[2025-02-19] MEDS: Ibuprofen 400 MG Tablet PO (04:05)
[2025-02-19] MEDS: guaiFENesin/Codeine 5 ML UDC 10 ML PO ×2 (04:06→09:54)
[2025-02-19] MEDS: Albuterol 2.5 MG/3 ML VIAL.NEB. INHALATION (05:08)
--- NOTE | 2025-02-19 05:10 | CPS ---
Patient requested PRN breathing Tx
[2025-02-19] MEDS: Levothyroxine 88 MCG Tablet PO (06:28)
[2025-02-19 06:42] LABS: Hematocrit 31.3 % (37-47); Hemoglobin 9.5 g/dL (12.0-15.0); Mean Corp Hgb Conc 30.4 g/dL (32-36); Mean Corpuscular Hgb 26.5 pg (27.0-32.0); Mean Corpuscular Volume 87.4 fL (81-99); Mean Platelet Vol. 9.1 fl (6.2-12.0); Platelet Count 237 K/mm3 (150-450); RBC Distribution Width CV 15.3 % (11.6-14.6); RBC Distribution Width SD 49.8 fl (35.1-43.9); Red Blood Count 3.58 M/mm3 (4.2-5.4); White Blood Count 4.8 K/mm3 (4.4-11.0)
[2025-02-19 07:07] LABS: Anion Gap 12 (5-15); BUN 28 mg/dL (4-19); BUN/Creat Ratio 39.7 RATIO (10-20); Calcium,Total 8.8 mg/dL (7.6-11.0); Carbon Dioxide 25.2 mmol/L (21.0-32.0); Chloride 102 mmol/L (98-108); EST Glomerular Filtration Rate 84 (>60); Estimated Creatinine Clearance 45.14 ml/min (50-250); Glucose 97 mg/dL (70-99); Sodium Level 139 mmol/L (133-145)
[2025-02-19] MEDS: Ipratropium/Albuterol Sulfate 3 ML AMPUL.NEB INHALATION ×4 (07:27→20:55)
[2025-02-19] MEDS: Escitalopram Oxalate 10 MG Tablet PO (09:51)
[2025-02-19] MEDS: Enoxaparin 40 MG/0.4 ML Syringe SC (09:51)
[2025-02-19] MEDS: Ferrous Sulfate 325 MG Tablet PO (09:51)
[2025-02-19] MEDS: busPIRone 5 MG Tablet 10 MG PO ×2 (09:52→22:23)
[2025-02-19] MEDS: Multivitamin (Healthy Eyes) Capsule 1 CAP PO ×2 (09:52→22:23)
[2025-02-19] MEDS: predniSONE 20 MG Tablet 40 MG PO (09:52)
--- NOTE | 2025-02-19 11:16 | PCM.PN.HOSP ---
Reason for Visit Reason for Visit: Diagnoses Bronchitis, not specified as acute or chronic (02/16/25) Hypoxemia (02/16/25) Other specified abnormal findings of blood chemistry (02/16/25) Subjective Subjective Saw patient at bedside this morning, daughter present. Patient appeared slightly more fatigued today compared to yesterday. She otherwise was sitting back in bedside chair comfortably, answering questions appropriately and in no acute distress. Stated she continued to have a significant cough and was trying to bring sputum up but was having difficulty doing so. Lungs did sound slightly more rhonchorous on exam today compared to yesterday. Mild wheezing still noted today. Patient doing okay with physical therapy but on discussion with her and daughter she is amenable to home health care on discharge. No other new concerns today. Objective Data Objective Data Vital Signs: Vital Signs Temp Pulse Resp BP Pulse Ox O2 Del Method O2 Flow Rate 98.0 F 74 20 H 138/63 H 95 Room Air 2 02/19/25 09:42 02/19/25 10:57 02/19/25 10:57 02/19/25 09:42 02/19/25 11:04 02/19/25 11:04 02/19/25 10:00 Oxygen Flow Rate (L/min) 2 Oxygen Delivery Method Room Air Weight: 70.8 kg Body Mass Index (BMI) 30.4 Intake & Output: Intake and Output for Last 24 Hours 02/17/25 02/18/25 02/19/25 23:59 23:59 23:59 Intake Total 200 / 200 820 / 820 Balance 200 / 200 820 / 820 Lab / Micro Data 02/19/25 05:28 02/19/25 05:28 Labs: Laboratory Results - last 24 hr 02/19/25 05:28: WBC 4.8, RBC 3.58 L, Hgb 9.5 L, Hct 31.3 L, MCV 87.4, MCH 26.5 L, MCHC 30.4 L, RDW Std Deviation 49.8 H, RDW Coeff of Cecille 15.3 H, Plt Count 237, MPV 9.1, Sodium 139, Potassium 4.0, Chloride 102, Carbon Dioxide 25.2, Anion Gap 12, BUN 28 H, Creatinine 0.70, Estim Creat Clear Calc 45.14 L, Est GFR (MDRD) Non-Af 84, BUN/Creatinine Ratio 39.7 H, Glucose 97, Calcium 8.8 Micro: Microbiology 02/17/25 08:02 Mucosa - Nose Respiratory Panel (PCR) - Final Parainfluenza 3 02/16/25 13:55 Mucosa - Nose SARS-CoV-2, Influenza & RSV (PCR) - Final Physical Exam Const alert, oriented x3 and no apparent distress Constitutional Narrative: Elderly female, mentally sharp, mild to moderately fatigued appearing but otherwise sitting up comfortably in bed, conversing normally and in no acute distress. Stable. General Appearance: cooperative and comfortable HEENT normocephalic, head/scalp atraumatic, hearing grossly normal bilaterally, nasal mucous membranes and turbinates normal and moist oral mucous membranes Eyes PERRL, EOMs intact bilaterally and conjunctivae normal Neck full ROM Chest inspection of chest normal Resp normal respiratory effort and no use of accessory muscles Resp Narrative: Breathing comfortably on 2 L nasal cannula at rest. Mild crackles noted bilaterally throughout with mild wheezing noted in upper airways. Cardio regular rate, regular rhythm, no murmurs and peripheral pulses 2+ throughout GI normal to inspection, nondistended, normoactive bowel sounds, soft to palpation, non-tender and non-distended Back/Spine normal ROM Extremity normal to inspection, full ROM and no pedal edema Skin no rashes or lesions noted Psych mental status grossly normal Assessment & Plan Assessment/Plan (1) Bronchitis: (2) Hypoxia: PLAN: Plan Patient is an 84-year-old female who presented to [facility] ED on 02/16/2025 with worsening shortness of breath. 1. Acute bronchitis with hypoxia secondary to parainfluenza virus infection ? Not on home oxygen, requiring 2 L nasal cannula at rest to maintain appropriate saturations on admit. Positive for parainfluenza 3 virus. Mild leukopenia present on admit. Chest x-ray with mild pulmonary vascular congestion and mild cardiomegaly, otherwise unremarkable. D-dimer negative when age-adjusted. BNP normal. Slow improvement clinically. De-escalated to p.o. steroids on 02/19. Continue scheduled breathing treatments. Continue as needed medications for symptom control. Will plan to complete O2 testing tomorrow morning in preparation for discharge home. 2. Elevated troponin level ? Troponin trend 18 > 18 > 15 on admit. No EKG changes noted. No chest pain noted. Cardiac exam on limited POCUS in ED unremarkable, and D-dimer and BNP normal. Presume secondary to demand ischemia in setting of hypoxia. No additional workup needed at this time. 3. Hypothyroidism ? TSH and free T4 normal on admit. Continue home Synthroid. 4. Depression/anxiety ? Stable. Continue home escitalopram, buspirone and olanzapine. 5. Mild chronic iron deficiency anemia ? Hemoglobin stable at baseline around 10 on admit. Continue home iron supplement. 6. Generalized weakness ? PT/OT/case management following. Lives at home alone. Feels weaker and more fatigued from her baseline presume secondary to viral infection. Planning for home with home health care on discharge. DVT prophylaxis: Lovenox CODE STATUS: Full code, verified Expected disposition: Home with [facility], 1 to 2 days Total clinical time spent by myself addressing the patient's medical issues, reviewing all the data, and collaborating with patient's care team: 35 minutes. Charges/Coding Visit Charges Inpatient E&M: 33990 Subs Hosp L2
--- NOTE | 2025-02-19 15:21 | CASEMGMT ---
Discharge Planning A list of?HH providers including quality and resource use data and consistent with the patient's preferred geographic region, medical needs, and insurance network was created in [facility] Guide.? This list was provided to the RN ANN MARIE. Vee Vogel, Discharge Planning Asst.
[2025-02-19] MEDS: 0.9% Saline Lock 10 ML Syringe IV ×2 (16:23→22:23)
[2025-02-19] MEDS: Acetaminophen 325 MG Tablet 650 MG PO (16:24)
[2025-02-19] MEDS: Furosemide 20 MG/2 ML VIAL IV (16:25)
[2025-02-19 17:24] LABS: Pro- Brain NATRIURETIC PEPTIDE 802 pg/mL (<=1800)
[2025-02-19] MEDS: traZODone 50 MG Tablet PO (22:23)
[2025-02-19] MEDS: OLANZapine 2.5 MG Tablet PO (22:23)
[2025-02-19] MEDS: guaiFENesin 10 ML UDC (200MG/10ML) PO (22:24)
[2025-02-20] VITALS (7 sets, daily range): BP systolic 124–160; BP diastolic 62–81; PULSE 68–78; RESP 16–19; TEMP 36.4–36.7; O2SAT 86–98
[2025-02-20] MEDS: 0.9% Saline Lock 10 ML Syringe IV (05:26)
[2025-02-20] MEDS: guaiFENesin 10 ML UDC (200MG/10ML) PO (05:27)
[2025-02-20] MEDS: Levothyroxine 88 MCG Tablet PO (05:27)
[2025-02-20] MEDS: Acetaminophen 325 MG Tablet 650 MG PO (05:27)
--- NOTE | 2025-02-20 05:52 | NURSING ---
pt walked 2 full laps in the bauman wearing 1 L via NC. pt maintained a pulse ox of 92%.
[2025-02-20] MEDS: Ipratropium/Albuterol Sulfate 3 ML AMPUL.NEB INHALATION (07:04)
--- NOTE | 2025-02-20 10:15 | CASEMGMT ---
Addendum entered by Tammy Bae 02/20/25 14:34: Received tc back from Lucie at [facility], they can accept pt and will be in touch with her to set up a time to come to her home. Pt aware. Addendum entered by Tammy Bae 02/20/25 14:10: TC to [facility] to inquire on acceptance of referral. Spoke with Sanjuanita, she will verify and then call this EMILY JESUS back. Addendum entered by Tammy Bae 02/20/25 11:21: TC to [facility] to verify receipt of referral via careport. Left vm requesting returned call. Addendum entered by Tammy Bae 02/20/25 10:41: EMILY JESUS into pt room, pt sitting in chair with dtr at bedside. Discussed homegoing oxygen with pt and dtr, they verbalize understanding. Provided pt with a HH list created by dc assistant corporate secretary. Pt chose [facility]. Provided explanation of HH services. DC assistant corporate secretary to send referral. Original Note: Pt qualifies for home oxygen. Referral sent to [facility] via careport at this time.
[2025-02-20] MEDS: Escitalopram Oxalate 10 MG Tablet PO (10:36)
[2025-02-20] MEDS: busPIRone 5 MG Tablet 10 MG PO (10:36)
[2025-02-20] MEDS: Multivitamin (Healthy Eyes) Capsule 1 CAP PO (10:36)
[2025-02-20] MEDS: predniSONE 20 MG Tablet 40 MG PO (10:36)
--- NOTE | 2025-02-20 10:36 | DS.PCM_ITS ---
Providers Date of Admission: 02/16/25 Date of Discharge: 02/20/25 Primary Care Physician: Dr. Yaneli Crawford MD Reason For Visit: ACUTE BRONCHITIS Diagnosis Discharge Diagnosis (1) Bronchitis: Status: Acute Code(s): J40 - Bronchitis, not specified as acute or chronic (2) Hypoxia: Status: Acute Code(s): R09.02 - Hypoxemia Medications at Discharge Home Medications ascorbate calcium (vitamin C) 500 mg tablet 500 mg PO DAILY 02/16/25 atorvastatin 40 mg tablet (Lipitor) 40 mg PO DAILY 02/16/25 buspirone 10 mg tablet 10 mg PO BID 02/16/25 ergocalciferol (vitamin D2) 1,250 mcg (50,000 unit) capsule (Vitamin D2) 1,250 mcg PO QWEEK 02/16/25 escitalopram oxalate 10 mg tablet 10 mg PO DAILY 02/16/25 ferrous sulfate 325 mg (65 mg iron) tablet (FeroSul) 325 mg PO DAILY 02/16/25 ibuprofen 200 mg tablet (Addaprin) 400 mg PO Q8H PRN fever or pain 02/16/25 levothyroxine 88 mcg tablet (Euthyrox) 88 mcg PO DAILY 02/16/25 loratadine 10 mg tablet (Allergy Relief (loratadine)) 10 mg PO DAILY PRN allergy symptoms 02/16/25 magnesium oxide 500 mg PO QHS 02/16/25 mecobalamin (vitamin B12) 500 mcg chewable tablet 1,000 mcg PO DAILY 02/16/25 olanzapine 2.5 mg tablet 2.5 mg PO QHS 02/16/25 trazodone 50 mg tablet 50 mg PO QHS 02/16/25 vitamins A,C,N-dtwk-lwrnyw 4,296 mcg-226 mg-90 mg capsule (Healthy Eyes SuperVision) 1 cap PO BID 02/16/25 zolpidem 10 mg tablet (Ambien) 10 mg PO QHS PRN insomnia 02/16/25 albuterol sulfate 90 mcg/actuation aerosol inhaler (Ventolin HFA) 1 inh inhalation Q6H PRN shortness of breath or wheezing #8.5 grams 02/20/25 furosemide 20 mg tablet (Lasix) 20 mg PO DAILY PRN edema #30 tabs 02/20/25 prednisone 10 mg tablet See Taper PO DAILY #20 tabs 02/20/25 Hospital Course Operations None Procedures - (Chest x-ray) Summary of Care Provided Minutes Spent on Discharge: 35 Hospital Course: Patient is an 84-year-old female who presented to [facility] ED on 02/16/2025 with worsening shortness of breath. Hospital course as noted below. Patient discharged home with home health care in stable condition on 02/20. 1. Acute bronchitis with hypoxia secondary to parainfluenza virus infection ? Not on home oxygen, requiring 2 L nasal cannula at rest to maintain appropriate saturations on admit. Positive for parainfluenza 3 virus. Mild leukopenia present on admit. Chest x-ray with mild pulmonary vascular congestion and mild cardiomegaly, otherwise unremarkable. D-dimer negative when age-adjusted. BNP normal. Slow improvement clinically. De-escalated to p.o. steroids on 02/19. Gave dose of IV Lasix x 1 on 02/19 with good urine output and improvement in symptoms. Completed O2 testing on day of discharge and patient required 2 L with exertion. Has also required 2 L overnight for suspected sleep apnea. Oxygen prescription sent. Will discharge on short prednisone taper, p.o. Lasix 40 mg up to once daily as needed and an albuterol inhaler. 2. Elevated troponin level ? Troponin trend 18 > 18 > 15 on admit. No EKG changes noted. No chest pain noted. Cardiac exam on limited POCUS in ED unremarkable, and D-dimer and BNP normal. Presume secondary to demand ischemia in setting of hypoxia. No additional workup needed at this time. 3. Hypothyroidism ? TSH and free T4 normal on admit. Continue home Synthroid. 4. Depression/anxiety ? Stable. Continue home escitalopram, buspirone and olanzapine. 5. Mild chronic iron deficiency anemia ? Hemoglobin stable at baseline around 10 on admit. Continue home iron supplement. 6. Generalized weakness ? PT/OT/case management following. Lives at home alone. Feels weaker and more fatigued from her baseline presume secondary to viral infection. Stable for discharge home with home health care on 02/20. Total clinical time spent by myself addressing the patient's medical issues, reviewing all the data, and collaborating with patient's care team: 35 minutes. Physical Exam Const alert, oriented x3 and no apparent distress Constitutional Narrative: Elderly female, mentally sharp, mildly fatigued appearing but energy improved from previous days, otherwise sitting up comfortably in bed, conversing normally and in no acute distress. General Appearance: cooperative and comfortable HEENT normocephalic, head/scalp atraumatic, hearing grossly normal bilaterally, nasal mucous membranes and turbinates normal and moist oral mucous membranes Eyes PERRL, EOMs intact bilaterally and conjunctivae normal Neck full ROM Chest inspection of chest normal Resp normal respiratory effort and no use of accessory muscles Resp Narrative: Breathing comfortably on room air at rest. Mild wheezing noted in upper airways bilaterally but no crackles noted. Improved from admission. Cardio regular rate, regular rhythm, no murmurs and peripheral pulses 2+ throughout GI normal to inspection, nondistended, normoactive bowel sounds, soft to palpation, non-tender and non-distended Back/Spine normal ROM Extremity normal to inspection, full ROM and no pedal edema Skin no rashes or lesions noted Psych mental status grossly normal Weight / BMI Weight Weight: 70.8 kg Body Mass Index (BMI) 30.4 ABG / Lab / Microbiology Data 02/19/25 05:28 02/19/25 05:28 Laboratory: Laboratory Results - last 24 hr 02/19/25 05:28: NT pro BNP II 802 Microbiology: Microbiology 02/17/25 08:02 Mucosa - Nose Respiratory Panel (PCR) - Final Parainfluenza 3 02/16/25 13:55 Mucosa - Nose SARS-CoV-2, Influenza & RSV (PCR) - Final D/C Instructions DC O2, CPAP, BIPAP Needs Home O2 Discharge instructions: Yes Type of respiratory needs?: Oxygen Oxygen frequency: With Ambulation Oxygen liters per minute during Ambulation: 2 and With Sleeping Oxygen liters per minute when sleepin DC home with Oxygen: Yes Home O2 MD Review: I have reviewed the oxygen testing, and the patient qualifies for home oxygen equipment and portability. The patient is mobile in the home and the community. Meaningful Use Info Meaningful Use Meaningful Use Diagnoses (Choose all that apply): None applicable Ischemic Stroke Statin Dosing Therapy Reference: STATIN DOSE THERAPY REFERENCE: * Patients > 75 years receive moderate or high dose statin therapy. * Patients 75 years or YOUNGER should receive HIGH intensity statin dose unless contraindicated. You will be required to document reason for non-treatment if statin daily dose does not meet guidelines. HIGH DOSE STATIN THERAPY DAILY Atorvastatin > than or = to 40 mg Rosuvastatin > than or = to 20 mg Amlodipine + Atorvastatin > than or = to 2.5/40 mg Ezetimibe + Simvastatin 10/80 mg Simvastatin 80mg Discharge Plan Admission Admit Date/Time: 02/16/25 14:33 Primary Reason for Your Visit: Shortness of breath Attending Provider: Keegan Elise Primary Care Provider: Yaneli Crawford Consulting Providers: London Alonso Discharge Orders/Prescriptions Prescriptions: New prednisone 10 mg tablet See Taper PO DAILY Qty: 20 0RF Taper: Prednisone Taper 40 mg WITH BREAKFAST for 2 Days and 0 Hour 30 mg WITH BREAKFAST for 2 Days and 0 Hour 20 mg WITH BREAKFAST for 2 Days and 0 Hour 10 mg WITH BREAKFAST for 2 Days and 0 Hour albuterol sulfate [Ventolin HFA] 90 mcg/actuation HFA aerosol inhaler 1 inh inhalation Q6H PRN (Reason: shortness of breath or wheezing) Qty: 8.5 0RF furosemide [Lasix] 20 mg tablet 20 mg PO DAILY PRN (Reason: edema) Qty: 30 0RF Continued ferrous sulfate [FeroSul] 325 mg (65 mg iron) tablet 325 mg PO DAILY magnesium oxide 500 mg magnesium tablet 500 mg PO QHS escitalopram oxalate 10 mg tablet 10 mg PO DAILY olanzapine 2.5 mg tablet 2.5 mg PO QHS zolpidem [Ambien] 10 mg tablet 10 mg PO QHS PRN (Reason: insomnia) buspirone 10 mg tablet 10 mg PO BID trazodone 50 mg tablet 50 mg PO QHS levothyroxine [Euthyrox] 88 mcg tablet 88 mcg PO DAILY ergocalciferol (vitamin D2) [Vitamin D2] 1,250 mcg (50,000 unit) capsule 1,250 mcg PO QWEEK Rx Instructions: PT TAKES ON THURSDAYS atorvastatin [Lipitor] 40 mg tablet 40 mg PO DAILY loratadine [Allergy Relief (loratadine)] 10 mg tablet 10 mg PO DAILY PRN (Reason: allergy symptoms) ibuprofen [Addaprin] 200 mg tablet 400 mg PO Q8H PRN (Reason: fever or pain) mecobalamin (vitamin B12) 500 mcg tablet,chewable 1,000 mcg PO DAILY ascorbate calcium (vitamin C) 500 mg tablet 500 mg PO DAILY Healthy Eyes SuperVision 4,296 mcg-226 mg-90 mg capsule 1 cap PO BID Referrals / Follow Up: Yaneli Crawford MD [Primary Care Provider] - Care Physician,No Primary [Non-Staff] - Disposition Disposition (needs filled in before D/C Order can be placed): Home Health Service Charges/Coding Visit Charges Inpatient E&M: 99429 Disch Hosp >30min
--- NOTE | 2025-02-20 10:36 | PCM.HOSP.N ---
Hospitalist Note I have reviewed the oxygen testing, and this patient qualifies for the home equipment and portability. The patient is mobile in the home and the community.
[2025-02-20] MEDS: Ferrous Sulfate 325 MG Tablet PO (10:41)
== END 2025-02-20 15:34 | disposition home health service (06) | DRG 202 ==
LOC: ED 14:12 → MS3 15:09
PROVIDERS: Emergency Provider Emergency Medicine; PCP Internal Medicine; Visit Provider Hospitalist
DX: J20.4 Acute bronchitis due to parainfluenza virus (principal); I24.89 Other forms of acute ischemic heart disease; F32.A Depression, unspecified; E03.9 Hypothyroidism, unspecified; D50.9 Iron deficiency anemia, unspecified; D72.819 Decreased white blood cell count, unspecified; F41.9 Anxiety disorder, unspecified; R03.0 Elevated blood-pressure reading, without diagnosis of hypertension; R09.02 Hypoxemia; Z79.02 Long term (current) use of antithrombotics/antiplatelets; Z79.899 Other long term (current) drug therapy; Z79.890 Hormone replacement therapy; Z88.8 Allergy status to other drugs, medicaments and biological substances; R53.83 Other fatigue; Z79.1 Long term (current) use of non-steroidal anti-inflammatories (NSAID); Z79.51 Long term (current) use of inhaled steroids; Z79.52 Long term (current) use of systemic steroids; R79.89 Other specified abnormal findings of blood chemistry
CPT/HCPCS: 36415; 71046; 80048; 83880; 84439; 84443; 84484; 85025; 85027; 85379; 87631; 87633; 93005; 94640; 94667; 94668; 97161; 97166; 99252; 99285; A4216; G0463; J1938